=== PATIENT | female | born 1950 | race Caucasian/White ===

== ENCOUNTER 2021-10-03 08:58 | Emergency (ER) | payer OTHER, SELFPAY ==
[2021-10-03 08:59] VITALS: BP 131/66; PULSE 79; RESP 16; TEMP 36.6; O2SAT 98; BMI 23.9
--- NOTE | 2021-10-03 09:13 | EX.ED.DYSGE1 ---
HPI History of Present Illness Chief Complaint: Chest Other Narrative Narrative: Patient Emory a 71-year-old female who presents to the ER with right-sided chest discomfort. She states that 1 week ago she was helping to pull her up in the recliner and when she did this she felt a pop. She states that she felt this in her right lower rib cage region. She states since that time if she goes to lift pull push or even cough or take a deep breath then she notices pain. She states there is been no rash or bruising to the area but has been persistent for a week and she is worried about broken ribs and therefore comes in for evaluation. [facility] Medical History COPD (chronic obstructive pulmonary disease) Home Medications albuterol sulfate [Proair Hfa] 2 puff INHALATION Q6H PRN PRN 10/31/13 [History Last Taken 11/07/13 04:30] cephalexin 500 mg PO Q8 10/31/13 [History Last Taken Unknown] mometasone [Asmanex 220 mcg Twisthaler] 220 mcg INHALATION BID 10/31/13 [History Last Taken 11/07/13 04:30] oxycodone-acetaminophen 1 - 2 tab PO Q4H PRN PRN #10 tab 11/07/13 [Rx Last Taken Unknown] methocarbamol 500 mg PO Q6H PRN #40 tab 10/03/21 [Rx Last Taken Unknown] Allergy/AdvReac Type Severity Reaction Status Date / Time No Known Allergies Allergy Verified 10/31/13 14:51 Social History Smoking Status: Never smoker [facility] ED Constitutional Constitutional ED: Denies chills or fever(s) ENT ENT ED: Denies sore throat Cardiovascular Cardiovascular: Reports chest pain Respiratory/Chest Respiratory/Chest: Denies cough or dyspnea Gastrointestinal Gastrointestinal: Denies abdominal pain, diarrhea, nausea or vomiting Genitourinary Genitourinary ED: Denies dysuria Musculoskeletal Musculoskeletal: Denies back pain or myalgias Integumentary Denies abscess or rash Neurologic Neurologic: Denies headache(s) Hematologic/Lymphatic Hematologic/Lymphatic: Denies easy bleeding or easy bruising EXAM Physical Exam Const Vital Signs: 10/03/21 08:59 10/03/21 09:10 Temperature 97.9 F Temperature Source Temporal Pulse Rate 79 Respiratory Rate 16 Respiratory Effort Normal Non-Labored Respiratory Pattern Normal Blood Pressure 131/66 H Blood Pressure Mean 87 Pulse Ox 98 Oxygen Delivery Method Room Air Positive well nourished and well developed General Appearance ED: well developed Eyes PERRL and EOMs intact bilaterally Neck supple Chest Wall Chest Narrative: There is pain with palpation to the right anterior chest wall rib regions 8-10 without bony deformity or crepitance noted. Resp normal respiratory effort and clear to auscultation bilaterally Cardio regular rate and regular rhythm Rate: other Other Details: Radial pulses are plus 2 out of 4 bilaterally are equal and some GI normal to inspection, nondistended, normoactive bowel sounds, non-tender, non-distended and no masses GI Narrative: No voluntary guarding or rigidity no pulsatile mass Auscultation: normoactive bowel sounds Palpation: soft Extremity normal to inspection Extremity Narrative: No asymmetric edema no pitting edema negative Homans' sign bilaterally Neuro oriented x3 and CN's II-XII intact bilaterally Sensorium / Orientation: alert Motor Exam: strength 5/5 throughout Psych mental status grossly normal Skin no rashes or lesions noted MDM MDM MDM Narrative Medical decision making narrative: Patient presented to the ER with chest wall pain that occurred after a lifting motion. It was very reproducible on exam and patient did not have any soft tissue skin changes to suggest infection. With the pop there was concern for fractured ribs so an x-ray was obtained. X-ray revealed no acute fracture or pneumothorax but did question a lung nodule. I informed patient of this nodule and we discussed obtaining a CT scan today. Patient states that she has an evaluation by her postdoctoral scientist on Sunday and will wait to hear the postdoctoral scientist opinion prior to getting the CT scan as I do not feel this questionable nodule is the cause of her symptoms. Therefore patient will be diagnosed with intercostal muscle strain and placed on muscle relaxers to help with symptoms and is otherwise safe for discharge Radiography Diagnostic Testing: Clinical Impression(s) from Imaging Studies Ribs w/Chest X-Ray 10/03/21 09:20 IMPRESSION: RIBS: Normal x-ray examination of the ribs. CHEST: Possible 1 cm nodule in the lateral midportion of the right lung. Correlation with CT scan is recommended. Electronically Signed: Saurabh Wallace MD at 9:46 EST , Service support , Discharge Plan Triage Chief Complaint: Chest Other ED Provider: Jamel Mclaughlin Dx/Rx/DC Orders Clinical Impression: Intercostal muscle strain Instructions: ED Strain Chest Wall, ED Contusion, Rib Prescriptions: New methocarbamol 500 mg tablet 500 mg PO Q6H PRN (Reason: Muscle pain/spasm) Qty: 40 RF: 0 No Action cephalexin 500 MG capsule 500 mg PO Q8 RF: 0 albuterol sulfate [ProAir HFA] 1 PUFF inhaler 2 puff inhalation Q6H PRN PRN (Reason: Asthma) RF: 0 mometasone [Asmanex Twisthaler] 220 MCG inhaler 220 mcg inhalation BID RF: 0 oxycodone-acetaminophen 1 TABLET tablet 1 - 2 tab PO Q4H PRN PRN (Reason: Eye pain) Qty: 10 RF: 0 Primary Care Provider: Nimo Knapp Referrals: Nimo Knapp PA [Primary Care Provider] - Activity Restrictions/Additional Instructions: Please talk to your postdoctoral scientist about obtaining a CT scan as an outpatient because of the questionable nodule found on today's x-ray Disposition Disposition: Home, Self Care
--- NOTE | 2021-10-03 09:20 | RAD_ITS ---
STUDY: X-RAY - UNILATERAL RIBS ( RIGHT ) WITH CHEST REASON FOR EXAM: Female, 71 years old. Pain TECHNIQUE - RIBS: 4 view(s) of the ribs. TECHNIQUE - CHEST: Single PA view of the chest. COMPARISON: None. FINDINGS - RIBS: Normal visualized ribs without a demonstrated fracture. FINDINGS - CHEST: There is hyperinflation of the lungs consistent with chronic obstructive lung disease (COPD). Possible 1 cm nodule in the lateral mid aspect of the right lung. There is no demonstrated pleural abnormality. Normal size heart. Calcified bilateral hilar lymph nodes. Normal visualized pulmonary arteries. There is atherosclerotic calcification of the aortic arch with tortuosity. Normal visualized thoracic spine. Normal visualized ribs, clavicles, and shoulders. There is no demonstrated abnormality of the visualized soft tissue structures of the upper abdomen. RAD/Ribs Uni Min 3V w/PA Chest IMPRESSION: RIBS: Normal x-ray examination of the ribs. CHEST: Possible 1 cm nodule in the lateral midportion of the right lung. Correlation with CT scan is recommended. Electronically Signed: Saurabh Wallace MD at 9:46 EST , Service support ,
== END 2021-10-03 10:34 | disposition home or self-care (01) ==
PROVIDERS: Emergency Provider Emergency Medicine
DX: S29.011A Strain of muscle and tendon of front wall of thorax, initial encounter (principal); X50.0XXA Overexertion from strenuous movement or load, initial encounter; Y93.9 Activity, unspecified; Y92.9 Unspecified place or not applicable; J44.9 Chronic obstructive pulmonary disease, unspecified
CPT/HCPCS: 71101; 99282

== ENCOUNTER 2022-02-20 07:29 | Emergency (ER) | payer OTHER, SELFPAY ==
[2022-02-20 07:30] VITALS: BP 126/78; PULSE 110; RESP 22; TEMP 35.9; O2SAT 93; BMI 24.7
[2022-02-20 07:34] VITALS: BP 126/78; PULSE 110; RESP 22; TEMP 35.9; O2SAT 93
[2022-02-20 08:06] VITALS: O2SAT 98
--- NOTE | 2022-02-20 08:06 | EKG12_ITS ---
Test Reason : SOB Blood Pressure : / mmHG Vent. Rate : 099 BPM Atrial Rate : 099 BPM P-R Int : 122 ms QRS Dur : 072 ms QT Int : 342 ms P-R-T Axes : 085 -35 064 degrees QTc Int : 438 ms Normal sinus rhythm Right atrial enlargement Left axis deviation Abnormal ECG Confirmed by VALERIA HERNANDEZ, PIPPA ([id number]), photographic editor TONY ROE ([id number]) on 02/22/2022 11:35:22 AM Referred By: KELLY Confirmed By:PIPPA SHAW MD
--- NOTE | 2022-02-20 08:07 | ED.VIS.DYS ---
HPI History of Present Illness Chief Complaint: Shortness of Breath Narrative Narrative: 8-year-old female presenting with shortness of breath. She states has been short of breath since last Sunday. She reports the highest temperature that she has had is 99 ?F. She was seen by her primary care provider who put her on azithromycin and prednisone. She felt as if she was getting better and is slowly feeling more weak, tired. She is having decreased p.o. intake but not vomiting. He has not had a true fever. She states he wears 2 years of oxygen at sleep normally but notes that she has been requiring oxygen while awake. She states he is dropped down to 84%. She has dyspnea with exertion. No leg swelling or edema. She denies any chest pain. No diarrhea or constipation. She states other than COPD she has no significant medical history. [facility] Medical History COPD (chronic obstructive pulmonary disease) Home Medications albuterol sulfate [Proair Hfa] 2 puff INHALATION Q6H PRN PRN 10/31/13 [History Last Taken 11/07/13 04:30] cephalexin 500 mg PO Q8 10/31/13 [History Last Taken Unknown] mometasone [Asmanex 220 mcg Twisthaler] 220 mcg INHALATION BID 10/31/13 [History Last Taken 11/07/13 04:30] oxycodone-acetaminophen 1 - 2 tab PO Q4H PRN PRN #10 tab 11/07/13 [Rx Last Taken Unknown] methocarbamol 500 mg PO Q6H PRN #40 tab 10/03/21 [Rx Last Taken Unknown] Allergy/AdvReac Type Severity Reaction Status Date / Time No Known Allergies Allergy Verified 02/20/22 07:29 Social History Smoking Status: Never smoker [facility] ED Constitutional Constitutional ED: Denies chills or sweats Eyes Eyes: Denies blurry vision or change in vision ENT ENT ED: Denies rhinorrhea or sore throat Cardiovascular Cardiovascular: Denies chest pain or palpitations Respiratory/Chest Respiratory/Chest: Reports dyspnea and dyspnea on exertion Gastrointestinal Gastrointestinal: Denies abdominal pain, diarrhea, nausea or vomiting Genitourinary Genitourinary ED: Denies dysuria Musculoskeletal Musculoskeletal: Denies arthralgias, back pain, myalgias or neck pain Integumentary Denies rash Neurologic Neurologic: Denies headache(s), paresthesias or weakness Psychiatric Psychiatric: Denies anxiety or depression EXAM Physical Exam Const Vital Signs: 02/20/22 07:30 02/20/22 07:34 02/20/22 08:06 Temperature 96.7 F L 96.7 F L Temperature Source Temporal Temporal Pulse Rate 110 H 110 H Respiratory Rate 22 H 22 H Respiratory Effort Normal Respiratory Pattern Normal Blood Pressure 126/78 H 126/78 H Blood Pressure Mean 94 94 Pulse Ox 93 93 Oxygen Delivery Method Nasal Cannula Nasal Cannula Nasal Cannula Oxygen Flow Rate (L/min) 2 2 02/20/22 09:06 02/20/22 13:49 02/20/22 14:29 Temperature Temperature Source Pulse Rate 85 Respiratory Rate 18 Respiratory Effort Respiratory Pattern Blood Pressure 101/56 L 121/56 H Blood Pressure Mean 71 77 Pulse Ox 98 97 95 Oxygen Delivery Method Nasal Cannula Nasal Cannula Room Air Oxygen Flow Rate (L/min) 2 Positive well nourished General Appearance ED: NAD HEENT Reports moist mucous membranes atraumatic Eyes PERRL and EOMs intact bilaterally Neck no lymphadenopathy and supple Resp normal respiratory effort and clear to auscultation bilaterally Cardio regular rhythm Rate: tachycardic GI non-tender Palpation: soft Back/Spine normal to inspection Neuro oriented x3 and CN's II-XII intact bilaterally Sensorium / Orientation: alert Motor Exam: strength 5/5 throughout Psych mental status grossly normal Skin Lesions: no lesions Rashes: no rashes MDM MDM MDM Narrative Medical decision making narrative: Patient evaluated for more dyspnea than usual. She states she was on a Z-Khanh initially improved but still feels short of breath. Although she is stating she requires more oxygen she has been monitored here for hours and her pulse ox is 97% on her baseline O2. Given her complaint I did do a septic work-up. Her lactic acid is normal. Coagulation studies are normal. She has a slightly elevated white blood cell count at 12.8. She has never had an actual documented fever. Urinalysis is negative for infection. Her chest x-ray on my interpretation showed right lower lobe opacities. COVID-19 testing negative. I did obtain a D-dimer and this was elevated at greater than 1 so I did follow with a CTA. She has noted to have 2 pulmonary nodules and one pleural-based nodule on exam with some patchy possible infiltrate locally in the right lower lobe. She states that she knows she has had 1 nodule. She followed with a wallpaper inspector and shipper who was going to monitor this over time. She had a chest x-ray and this was found incidentally because she hurt her ribs. It is unclear whether the CTA just found more nodules or if these are new nodules, but she does state that she can follow-up with her wallpaper inspector and shipper outpatient. I think since she is on her baseline oxygen and her septic work-up is ultimately negative I think she can be discharged home. I do not believe she needs another course of antibiotics. Her vital signs are stable and she is afebrile. She is well-appearing. Patient will be discharged and she is given return precautions for any new or worsening symptoms. Impression: 1. Pulmonary nodules 2. Dyspnea 3. Generalized weakness Lab Data Labs: Laboratory Results - last 24 hr 02/20/22 02/20/22 02/20/22 08:06 08:50 09:13 WBC RBC Hgb Hct MCV MCH MCHC RDW Std Deviation RDW Coeff of Jenifer Plt Count MPV Immature Gran % (Auto) Neut % (Auto) Lymph % (Auto) Greer % (Auto) Eos % (Auto) Baso % (Auto) Absolute Neuts (auto) Absolute Lymphs (auto) Nucleated RBC % PT 13.1 INR 1.1 APTT 32.5 D-Dimer Quant (PE/DVT) 1.02 H* Sodium Potassium Chloride Carbon Dioxide Anion Gap BUN Creatinine Estim Creat Clear Calc Est GFR (MDRD) Af Amer Est GFR (MDRD) Non-Af BUN/Creatinine Ratio Glucose Lactic Acid 0.7 Calcium Total Bilirubin AST ALT Alkaline Phosphatase B-Natriuretic Peptide Total Protein Albumin Globulin Albumin/Globulin Ratio Urine Color Straw Urine Clarity Clear Urine pH 7.0 Ur Specific Spickard 1.010 Urine Protein Negative Urine Glucose (UA) Normal Urine Ketones Negative Urine Occult Blood Negative Urine Nitrite Negative Urine Bilirubin Negative Urine Urobilinogen Normal Ur Leukocyte Esterase Negative Urine RBC 0 SEEN Urine WBC 0 SEEN Ur Squamous Epith Cells 0 SEEN Urine Bacteria 0 SEEN Urine Mucus 0 SEEN COVID-19 (KAJAL) 02/20/22 02/20/22 02/20/22 09:13 09:13 09:13 WBC 12.8 H RBC 5.33 Hgb 16.0 H Hct 47.6 H MCV 89.3 MCH 30.0 MCHC 33.6 RDW Std Deviation 42.2 RDW Coeff of Jenfier 12.9 Plt Count 269 MPV 11.0 Immature Gran % (Auto) 0.900 Neut % (Auto) 74.4 H Lymph % (Auto) 12.7 L Greer % (Auto) 10.6 H Eos % (Auto) 0.9 Baso % (Auto) 0.5 Absolute Neuts (auto) 9.6 H Absolute Lymphs (auto) 1.63 Nucleated RBC % 0 PT INR APTT D-Dimer Quant (PE/DVT) Sodium 136 Potassium 3.9 Chloride 101 Carbon Dioxide 29.0 Anion Gap 6 BUN 13 Creatinine 0.86 Estim Creat Clear Calc 50.35 Est GFR (MDRD) Af Amer 83 Est GFR (MDRD) Non-Af 69 BUN/Creatinine Ratio 15.0 Glucose 95 Lactic Acid Calcium 9.5 Total Bilirubin 1.00 AST 15 ALT 24 Alkaline Phosphatase 68 B-Natriuretic Peptide 14.4 Total Protein 7.5 Albumin 3.6 Globulin 3.9 Albumin/Globulin Ratio 0.9 Urine Color Urine Clarity Urine pH Ur Specific Spickard Urine Protein Urine Glucose (UA) Urine Ketones Urine Occult Blood Urine Nitrite Urine Bilirubin Urine Urobilinogen Ur Leukocyte Esterase Urine RBC Urine WBC Ur Squamous Epith Cells Urine Bacteria Urine Mucus COVID-19 (KAJAL) 02/20/22 09:25 WBC RBC Hgb Hct MCV MCH MCHC RDW Std Deviation RDW Coeff of Jenifer Plt Count MPV Immature Gran % (Auto) Neut % (Auto) Lymph % (Auto) Greer % (Auto) Eos % (Auto) Baso % (Auto) Absolute Neuts (auto) Absolute Lymphs (auto) Nucleated RBC % PT INR APTT D-Dimer Quant (PE/DVT) Sodium Potassium Chloride Carbon Dioxide Anion Gap BUN Creatinine Estim Creat Clear Calc Est GFR (MDRD) Af Amer Est GFR (MDRD) Non-Af BUN/Creatinine Ratio Glucose Lactic Acid Calcium Total Bilirubin AST ALT Alkaline Phosphatase B-Natriuretic Peptide Total Protein Albumin Globulin Albumin/Globulin Ratio Urine Color Urine Clarity Urine pH Ur Specific Spickard Urine Protein Urine Glucose (UA) Urine Ketones Urine Occult Blood Urine Nitrite Urine Bilirubin Urine Urobilinogen Ur Leukocyte Esterase Urine RBC Urine WBC Ur Squamous Epith Cells Urine Bacteria Urine Mucus COVID-19 (KAJAL) Negative Radiography Diagnostic Testing: Clinical Impression(s) from Imaging Studies Chest CTA 02/20/22 10:12 IMPRESSION: 2.7 cm x 0.8 cm irregular nodular density in the anterior aspect of the right lower lobe. This also is of a 6.5 mm x 6.5 mm nodule in the lateral posterior aspect of the right lower lobe. Noncalcified 5.5 mm pleural-based nodule in the superior segment of the right lower lobe. Hyperinflation. Patchy alveolar infiltrates in the right lower lobe. Radiographic follow-up is recommended. No evidence of pulmonary embolism. Electronically Signed: Saurabh Wallace MD at 11:20 EDT , Chest X-Ray 02/20/22 10:25 IMPRESSION: Mild opacities in the right mid and lower lung, concerning for pneumonia. at 1104 Reported and signed by: Carmel Aguirre MD Electronically Signed: Carmel Aguirre MD at 11:03 EDT , Discharge Plan Triage Chief Complaint: Shortness of Breath ED Provider: Aleksey Arnett Dx/Rx/DC Orders Instructions: ED Pulmonary Nodule, Solitary Prescriptions: No Action cephalexin 500 MG capsule 500 mg PO Q8 RF: 0 albuterol sulfate [ProAir HFA] 1 PUFF inhaler 2 puff inhalation Q6H PRN PRN (Reason: Asthma) RF: 0 mometasone [Asmanex Twisthaler] 220 MCG inhaler 220 mcg inhalation BID RF: 0 oxycodone-acetaminophen 1 TABLET tablet 1 - 2 tab PO Q4H PRN PRN (Reason: Eye pain) Qty: 10 RF: 0 methocarbamol 500 mg tablet 500 mg PO Q6H PRN (Reason: Muscle pain/spasm) Qty: 40 RF: 0 Primary Care Provider: Nimo Knapp: Nimo Knapp PA [Primary Care Provider] - Disposition Disposition: Home, Self Care
[2022-02-20 08:58] LABS: Bacteria 0 SEEN /hpf (None Seen); Mucous, Urine 0 SEEN /hpf (<or=2+); Red Blood Cells-Urine 0 SEEN /hpf (0-5); Squamous Epithelial Cells - UA 0 SEEN /hpf (5-10); White Blood Cells 0 SEEN /hpf (0-5)
[2022-02-20 09:04] LABS: Color, Urine Straw (Yellow); Glucose, Dipstick Normal (Normal); Ketone-Dipstick Negative (Negative); Leukocyte Esterase-Dipstick Negative /ul (Negative); Nitrite-Dipstick Negative (Negative); Occult Blood-Urine Negative /ul (Negative); Protein-Dipstick Negative (Negative); Urine Bilirubin Dipstick Negative (Negative); Urine Clarity Clear (Clear); Urine Urobilinogen Normal (Normal)
[2022-02-20 09:06] VITALS: O2SAT 98
[2022-02-20 09:40] LABS: Absolute Lymphocyte Count 1.63 X10^3/uL (0.83-4.51); Absolute Neutrophil Count 9.6 X10^3/uL (2.0-7.7); Basophil# 0.06 X10^3/uL; Basophil% 0.5 % (0-1); Eosinophil# 0.11 X10^3/uL; Eosinophils% 0.9 % (0-5); Hematocrit 47.6 % (37-47); Lymphocyte # 1.63 X10^3/ul (0.83-4.51); Lymphocyte % 12.7 % (19-41); Mean Corp Hgb Conc 33.6 g/dL (32-36); Mean Corpuscular Volume 89.3 fL (81-99); Monocyte# 1.36 X10^3/uL; Monocyte% 10.6 % (0-10); NRBC Flagged by Analyzer 0 % (0-5); Neutrophil # 9.55 X10^3/uL (2.7-7.7); Neutrophil % 74.4 % (47-70); Platelet Count 269 K/mm3 (150-450); RBC Distribution Width CV 12.9 % (11.6-14.6); RBC Distribution Width SD 42.2 fl (35.1-43.9); Red Blood Count 5.33 M/mm3 (4.2-5.4); White Blood Count 12.8 K/mm3 (4.4-11.0)
[2022-02-20 09:57] LABS: BNP,B-Type NATRIURETIC PEPTIDE 14.4 pg/mL (0-100)
[2022-02-20 10:00] LABS: International Normalized Ratio 1.1; Partial Thromboplast Time 32.5 Seconds (24.1-36.2); Prothrombin Time (Protime)PT. 13.1 SECONDS (11.7-14.9)
[2022-02-20 10:01] LABS: ALB/GLOB Ratio 0.9 RATIO (0.9-2.4); AST(SGOT) 15 U/L (15-37); Alanine Aminotransfer ALT/SGPT 24 U/L (13-56); Albumin, Serum 3.6 g/dL (3.2-5.0); Alkaline Phosphatase 68 U/L (45-117); Anion Gap 6 (5-15); BUN 13 mg/dL (7-18); Calcium,Total 9.5 mg/dL (8.5-10.1); Chloride 101 mmol/L (98-107); Creatinine, Serum 0.86 mg/dL (0.55-1.02); EST Glomerular Filtration Rate 69 mL/min (>60); Est Glom Filt Rate - Afr Amer 83 mL/min (>60); Estimated Creatinine Clearance 50.35 ml/min; Globulin 3.9 g/dL (2.2-4.2); Glucose 95 mg/dL (74-106); Potassium 3.9 mmol/L (3.5-5.1); Protein, Total 7.5 g/dL (6.4-8.2); Sodium Level 136 mmol/L (136-145)
[2022-02-20 10:03] LABS: D-Dimer Quantitative (DVT/PE) 1.02 FEU/ug/m (0.27-0.49)
--- NOTE | 2022-02-20 10:12 | CT_ITS ---
STUDY: CTA CHEST REASON FOR EXAM: Female, 71 years old. Hypoxia RADIATION DOSAGE (If Supplied By Facility): CTDIvol = ( 7.01 ) mGy, DLP = ( 173.15 ) mGycm TECHNIQUE: The examination was performed with the intravenous administration of IV 100mL Isovue-370. Post-processing of the angiographic images was performed, with multiplanar reformation and 3D reconstruction. Individualized dose optimization techniques were used for this CT. COMPARISON: Comparison is made with prior chest radiograph done earlier in the day. FINDINGS: Normal enhancement of the main pulmonary artery and right and left pulmonary arteries. Normal enhancement of the bilateral peripheral pulmonary arteries. There is no demonstrated pulmonary embolism. Normal thoracic aorta and visualized great vessels. There is no demonstrated aortic dissection. Normal heart and pericardium. Normal mediastinum. Normal hilar regions. Normal visualized trachea and bronchi. Hyperinflation. There is a 2.7cm x 0.8 cm irregular linear/nodular density in the anterior aspect of the right lower lobe. A neoplastic process should be ruled out. There is also evidence of a 6.5 mm x 6.5 mm nodular density in the lateral posterior aspect of the right lower lobe as seen on axial image #125. There is a 5.5 mm pleural-based nodule in the superior segment of the right lower lobe as seen on axial image #168. Mild degree of the bronchiectasis and patchy alveolar infiltrates are seen in the right lower lobe along the posterior medial segment. Normal pleura. Normal chest wall structures. There are degenerative changes of thoracic spine. Normal visualized upper abdomen. CT/CTA Chest W/WO Contrast IMPRESSION: 2.7 cm x 0.8 cm irregular nodular density in the anterior aspect of the right lower lobe. This also is of a 6.5 mm x 6.5 mm nodule in the lateral posterior aspect of the right lower lobe. Noncalcified 5.5 mm pleural-based nodule in the superior segment of the right lower lobe. Hyperinflation. Patchy alveolar infiltrates in the right lower lobe. Radiographic follow-up is recommended. No evidence of pulmonary embolism. Electronically Signed: Saurabh Wallace MD at 11:20 EDT ,
--- NOTE | 2022-02-20 10:25 | RAD_ITS ---
HISTORY: cough. TECHNIQUE: XR Chest 1 View. # of images incl. paperwork: 1. COMPARISON: 10/03/2021. FINDINGS: CARDIOMEDIASTINAL STRUCTURES: Cardiac silhouette not enlarged. Mediastinal contour unremarkable with calcification of the aorta. LUNGS: Hyperinflated, suggesting COPD. Mild opacities in the right mid and lower lung. PLEURA: No pleural effusion or pneumothorax. OSSEOUS STRUCTURES: Osteopenia noted. RAD/Chest 1 View (Portable) IMPRESSION: Mild opacities in the right mid and lower lung, concerning for pneumonia. at 1104 Reported and signed by: Carmel Aguirre MD Electronically Signed: Carmel Aguirre MD at 11:03 EDT ,
[2022-02-20 12:58] LABS: Lactic Acid 0.7 mmol/L (0.4-1.9)
[2022-02-20 13:49] VITALS: BP 101/56; O2SAT 97
[2022-02-20 14:29] VITALS: BP 121/56; PULSE 85; RESP 18; O2SAT 95
--- NOTE | 2022-02-22 14:05 | CM.ED ---
ER RNCM DC F/u Call: Seen in ER 02/20/22 for SOB. H/o COPD, on home O2 at night but having to use during the day recently with this illness. PCP placed on Zithromax and Prednisone. Patient to f/u with Database Programmer Analyst. Called patient's listed number on demographics and answered by patient. This securities underwriter introduced self and role. Patient states has been doing the same, still has fevers. Wearing O2 during the day. Course of Zithromax is finished. F/u with PCP today and gave her another course of Prednisone. States will call for f/u with her avionics systems engineer now. No further issues or concerns voiced to this securities underwriter and educated to return for any worsening of symptoms. PENELOPE Hager
== END 2022-02-20 14:42 | disposition home or self-care (01) ==
PROVIDERS: Emergency Provider Student in an Organized Health Care Education/Training Program; Visit Provider Student in an Organized Health Care Education/Training Program
DX: R06.00 Dyspnea, unspecified (principal); J44.9 Chronic obstructive pulmonary disease, unspecified; R91.8 Other nonspecific abnormal finding of lung field; R53.1 Weakness
CPT/HCPCS: 36415; 71045; 71275; 80053; 81001; 83605; 83880; 85025; 85379; 85610; 85730; 87040; 87086; 87635; 93005; 99284; J7030; Q9967; A4216; U0003; U0005

== ENCOUNTER 2025-07-25 09:13 | Inpatient (IN) | payer OTHER, SELFPAY ==
[2025-07-25] VITALS (12 sets, daily range): BP systolic 102–118; BP diastolic 60–69; PULSE 75–125; RESP 16–28; TEMP 36.6–37.1; O2SAT 74–100; BMI 17.4; BMI 17.5
--- NOTE | 2025-07-25 09:39 | EDS_ITS ---
HPI History of Present Illness Chief Complaint: Shortness of Breath Narrative Narrative: Patient is a 74-year-old female presenting to the emergency department for shortness of breath for the past few days. Patient has past medical history of COPD. She states that over the past few days her shortness of breath has worsened. She reports mainly worsening shortness of breath with activity. She denies any chest pain. She denies any fever or chills. She reportedly followed up with her primary care doctor yesterday and they did a CT that showed infection. She was started on antibiotic however she did not go to the pharmacy to pick it up. It was encouraged that she go to the emergency department after being seen at the primary care doctor's office however she did not go. She is here today for continued shortness of breath. She is using her breathing treatments use this morning. She wears oxygen as needed, usually wears it at night about 2 L. Denies any lower extremity edema. Denies any history of PE or DVT. Denies any recent travel, hospitalizations or surgeries. [facility] Medical History COPD (chronic obstructive pulmonary disease) Home Medications ?Medication ?Instructions ?Recorded ?Last Taken ?Type albuterol sulfate 90 mcg/actuation 1 inh inhalation 4X /DAY PRN PRN 07/25/25 Unknown History breath activated powder inhaler shortness of breath (ProAir RespiClick) fluticasone furoate 200 1 inh inhalation DAILY 07/2507/25/25 History mcg-vilanterol 25 mcg/dose inhalation powder (Breo Ellipta) Allergy/AdvReac Type Severity Reaction Status Date / Time No Known Allergies Allergy Verified 07/25/25 09:15 Social History Smoking Status: Never smoker ROS ROS ED ROS Narrative see HPI EXAM Physical Exam Narrative Exam Narrative: Vital signs: Reviewed General: Alert and oriented x 3. No acute distress HEENT: Head is normocephalic and atraumatic, sinuses nontender, pupils equal round and reactive. Nares are patent. Oropharynx and throat exams normal. Neck: Supple without lymphadenopathy nontender Cardiovascular: Tachycardic rate and regular rhythm, no murmurs. No rubs or gallops. Normal S1 and S2 Respiratory: Diminished lung sounds throughout. No wheezes, rales, rhonchi. On 4 L NC. Abdominal: Soft and nontender. Normal bowel sounds. No guarding or rebound. Nonsurgical abdomen Extremities: No lower extremity edema. No tenderness. No bruising. Normal range of motion. Normal sensation. Skin: No rash or redness. Neurological: Cranial nerves II through XII are grossly intact. Normal strength and sensation. Normal cerebellar function The rest of the physical exam is unremarkable Const Vital Signs: 07/25/25 09:14 07/25/25 09:29 07/25/25 09:40 Temperature 97.9 F Temperature Source Temporal Pulse Rate 125 H Respiratory Rate 22 H Respiratory Effort Short of Breath Respiratory Depth Normal Respiratory Pattern Normal Blood Pressure 110/69 Blood Pressure Mean 82 Pulse Ox 87 96 Oxygen Delivery Method Nasal Cannula Room Air Nasal Cannula Oxygen Flow Rate (L/min) 3 4 07/25/25 09:51 07/25/25 10:15 07/25/25 12:00 Temperature 98.7 F Temperature Source Oral Pulse Rate 103 H 111 H 96 Respiratory Rate 20 H 18 23 H Respiratory Effort Respiratory Depth Respiratory Pattern Normal Blood Pressure 118/64 102/61 Blood Pressure Mean 82 74 Pulse Ox 100 91 Oxygen Delivery Method Nasal Cannula Room Air Oxygen Flow Rate (L/min) 3 07/25/25 12:59 07/25/25 13:00 Temperature Temperature Source Pulse Rate 94 Respiratory Rate 28 H Respiratory Effort Respiratory Depth Respiratory Pattern Blood Pressure 109/62 Blood Pressure Mean 77 Pulse Ox 89 97 Oxygen Delivery Method Room Air Nasal Cannula Oxygen Flow Rate (L/min) 2 MDM MDM MDM Narrative Medical decision making narrative: Patient is a 74-year-old female presenting to the emergency department for dyspnea. Patient was seen and examined. She arrives tachycardic at 125. Tachypneic at 22. Stable BP at 110/69. Saturating in the 70s on room air, placed on 4 L nasal cannula now saturating 99%. She is afebrile. Differential includes but is not limited to: COPD exacerbation, pneumonia, ACS, PE, CHF, viral Was able to pull images over from the CT that was done yesterday. It was a CTA. There is no evidence of pulmonary embolism. There was evidence of an atypical pneumonia. Patient started on azithromycin here. Given 2 DuoNeb breathing treatments. She is not wheezing on exam which is why I was initially concerned about a possible PE. CBC with no leukocytosis and hemoglobin of 16.1. BMP with no significant abnormalities. Lactate within normal limits. BNP within normal limits. Troponin and reflex stable with no significant delta change. EKG shows sinus tachycardia with left axis deviation. No ischemic changes noted. No dysrhythmia. Patient was given fluids for tachycardia. She does wear oxygen as needed. She was ambulated with pulse ox without oxygen saturating 90% however her heart rate did go up to 137. When brought back to the room she did present saturating 86 to 88% on room air. Discussed admission given the ambulation test. She is agreeable. Patient admitted to Dr. Gamble for atypical pneumonia, hypoxia and tachycardia. Clinical impression Shortness of breath Atypical pneumonia Hypoxia History & Record Review Discussion w/independent historian: Patient and Family Additional record(s) reviewed:: Prior outpatient record (prior CT imaging) Lab Data Attestation: I reviewed the patient's lab results. Labs: Laboratory Results - last 24 hr 07/25/25 07/25/25 09:30 11:50 WBC 6.9 RBC 5.43 H Hgb 16.1 H Hct 49.0 H MCV 90.2 MCH 29.7 MCHC 32.9 RDW Std Deviation 43.5 RDW Coeff of Jenifer 13.1 Plt Count 284 MPV 11.4 Immature Gran % (Auto) 0.300 Neut % (Auto) 54.4 Lymph % (Auto) 27.8 Harvey % (Auto) 9.5 Eos % (Auto) 6.6 H Baso % (Auto) 1.4 H Absolute Neuts (auto) 3.8 Absolute Lymphs (auto) 1.93 Nucleated RBC % 0 Sodium 139 Potassium 4.0 Chloride 97 L Carbon Dioxide 29.1 Anion Gap 12 BUN 14 Creatinine 0.66 L Estim Creat Clear Calc 44.29 L Est GFR (MDRD) Non-Af 93 BUN/Creatinine Ratio 21.4 H Glucose 103 H Lactic Acid 1.1 Calcium 9.9 Troponin T High Sens 20 H Troponin T Hi Sens 2 Hr 17 H NT pro BNP II 38 Discharge Plan Disposition Disposition: Acute Care [facility] Discharge Date/Time: 07/25/25 13:47
--- NOTE | 2025-07-25 09:41 | EKG12_ITS ---
Test Reason : SOB Blood Pressure : */* mmHG Vent. Rate : 116 BPM Atrial Rate : 116 BPM P-R Int : 142 ms QRS Dur : 66 ms QT Int : 316 ms P-R-T Axes : 86 -50 69 degrees QTcB Int : 439 ms Sinus tachycardia Right atrial enlargement Left axis deviation Pulmonary disease pattern Cannot rule out Septal infarct , age undetermined Abnormal ECG Present Confirmed by Joe Hickey ([id number]), newspaper editor LUKAS HATHAWAY ([id number]) on 07/28/2025 5:47:20 AM Referred By: Confirmed By: Joe Hickey
--- OUTSIDE RECORDS SUMMARY | 2025-07-25 09:58 | XMS RPT_ITS | CCD ---
Author Organization [facility] Care Team Providers Care Business Proposal Rep Name Role Phone Veronica SULLIVAN, Ivette J Unavailable [phone] Veronica SULLIVAN, Ivette J Unavailable [phone] Ness HERNANDEZ, Emma Minaya Unavailable Leandro HERNANDEZ, Terrell Coelho Unavailable Brandon HERNANDEZ, Miky Tovar Unavailable Lizandro SULLIVAN, Ivy Hayes Unavailable [phone] Nitish BARRIOSN, Yary Unavailable Unavailable Chanel MILLED RUBBER TENDER, Hailey Unavailable Unavailable Kimani TRIPLETT, Yesica Stack Unavailable Unavailable Anibal MILLED RUBBER TENDER, Char Unavailable Unavailable Geovany SULLIVAN, Linda J Unavailable [phone] Freedom MILLED RUBBER TENDER, Emma Ndiaye Unavailable Unavailab le [place] MILLED RUBBER TENDER, Ariella Duron Unavailable Unavailab le Vess MILLED RUBBER TENDER, Orlando L Unavailable Unavailable Kyle MILLED RUBBER TENDER, Leela Unavailable Unavailabl rei Campos MILLED RUBBER TENDER, Ada Chairez Unavailable Unavaila ble Unavailable Unavailable Last MILLED RUBBER TENDER, Isamar Unavailable Unavailabl e MARTIN, IVETTE PAC Consulting Unavailable MARTIN, IVETTE PAC Referring Unavailable LAURIE ARNETT JR Admitting Unavailable LAURIE ARNETT JR Primary Care Unavailable LAURIE ARNETT JR Attending Unavailable PROVIDER, UNKNOWN Consulting Unavailable ARMENTA, LINDA J Attending Unavailable MARTIN, IVETTE PAC Consulting Unavailable ARMENTA, LINDA J Admitting Unavailable ARMENTA, LINDA J Primary Care Unavailable PROVIDER, UNKNOWN Consulting Unavailable MARTIN, IVETTE PAC Consulting Unavailable ARMENTA, LINDA J Admitting Unavailable ARMENTA, LINDA J Primary Care Unavailable ARMENTA, LINDA J Attending Unavailable PROVIDER, UNKNOWN Consulting Unavailable Armenta PA-C, Linda J Unavailable [phone] Clint VAUGHAN, Luis Angel Unavailable Unavailable Medications Current Medications Medication Drug Class(es) Dates Sig (Normalized) Sig (Original) [id number] 200 actuat albuterol 0.09 mg/actuat metered dose inhaler (20 sources) beta2-Adrenergic Agonist ProAir RespiClick 90 mcg/actuation breath activated ; 1 inhalation QID prn (90 mcg/actuat) PROAIR HFA, 108 (90 Base)MCG/ACT (Inhalation Aerosol Solution) ; as needed (108 (90 Base) MCG/ACT) Comments: Medication taken as needed. Comment on above: Medication taken as needed. 30 actuat fluticasone furoate 0.2 mg/actuat / vilanterol 0.025 mg/actuat dry powder inhaler (12 sources) Corticosteroid, beta2-Adrenergic Agonist Breo Ellipta 20 0 mcg-25 mcg/dose powder for inhalation ; 1 inhalation once a day (200-25 mcg/dose) Completed/Discontinued Medications Medication Drug Class(es) Dates Sig (Normalized) Sig (Original) amoxicillin 875 mg / clavulanate 125 mg oral tablet (20 sources) Penicillin-class Antibacterial Start: 02-08-2024 End: 02-15-2024 amoxicillin 875 mg-potassium clavulanate 125 mg tablet ; 1 (one) tablet BID for 7 days Quantity: 14 {Tablet} Refills: 0 Ordered: 08-Feb-2024 LAURIE Armenta Start: 08-Feb-2024 End: 15-Feb-2024 Status: Inactive Start: 11-10-2014 End: 11-20-2014 take 1 tablet by mouth twice daily at mealtime AUGMENTIN, 875-125MG (Oral Tablet) ; 1 (one) Tablet twice daily for 10 days Quantity: 20 {Tablet} Refills: 0 Ordered: 10-Nov-2014 LAURIE Bone Start: 10-Nov-2014 End: 20-Nov-2014 Status: Inactive Comments: Take with food Comment on above: Take with food azithromycin 250 mg oral tablet (20 sources) Macrolide Antimicrobial Start: 10-19-2021 End: 02-22-2022 Zithromax Z-Alex 250 MG Oral Tablet ; 2 (two) Tabs day one, then one daily for 4 days for 0 days Quantity: 1 {Packet} Refills: 0 Ordered: 22-Feb-2022 Start: 14-Feb-2022 End: 22-Feb-2022 Status: Inactive Start: 05-28-2015 End: 05-31-2015 take 1 tablet by mouth once daily AZITHROMYCIN, 500MG (Oral Tablet) ; 1 (one) Tablet daily for 3 days Quantity: 3 {Tablet} Refills: 0 Ordered: 28-May-2015 MD Miky Taylor Start: 28-May-2015 End: 31-May-2015 Status: Inactive benzonatate 100 mg oral capsule (12 sources) Non-narcotic Antitussive Start: 01-03-2019 End: 09-29-2021 take 1 capsule by mouth three times daily as needed for cough Tessalon Perles 100 MG Oral Capsule ; 1 (one) Capsule tid prn cough for 0 days Quantity: 30 {Capsule} Refills: 0 Ordered: 29-Sep-2021 CLEMENT Buchanan Start: 03-Jan-2019 End: 29-Sep-2021 Status: Inactive cephalexin 500 mg oral capsule (12 sources) Cephalosporin Antibacterial Start: 01-03-2019 End: 01-13-2019 take 2 capsules by mouth twice daily Cephalexin 500 MG Oral Capsule ; 2 (two) Capsule bid for 10 days Quantity: 40 {Capsule} Refills: 0 Ordered: 03-Jan-2019 MD Terrell Reeves Start: 03-Jan-2019 End: 13-Jan-2019 Status: Inactive hydrocortisone 25 mg/ml topical cream (12 sources) Corticosteroid Start: 09-29-2021 End: 02-22-2022 Proctozone-HC 2.5 % External Cream ; 1 (one) Application two times daily for 0 days Quantity: 30 {Gram} Refills: 1 Ordered: 22-Feb-2022 Start: 29-Sep-2021 End: 22-Feb-2022 Status: Inactive methylPREDNISolone 4 mg oral tablet (12 sources) Corticosteroid Start: 01-09-2014 End: 02-26-2014 MEDROL (ALEX), 4MG (Oral Tablet) ; 1 (one) Tablet Tablet as directed for 0 days Quantity: 1 {Dose_Pack} Refills: 0 Ordered: 26-Feb-2014 UZIEL Harman Start: 09-Jan-2014 End: 26-Feb-2014 Status: Inactive 120 actuat mometasone furoate 0.22 mg/actuat dry powder inhaler (12 sources) Corticosteroid take 2 puff(s) by inhalation once daily in the morning ASMANEX 120 METERED DOSES, 220MCG/INH (Inhalation Aerosol Powder Breath Activated) ; 2 puffs every morning (220 MCG/INH) Status: Inactive predniSONE 20 mg oral tablet (20 sources) Start: 02-08-2024 End: 02-13-2024 predniSONE 20 mg tablet ; 2 (two) Tablet daily for 5 days Quantity: 10 {Tablet} Refills: 0 Ordered: 08-Feb-2024 LAURIE Armenta Start: 08-Feb-2024 End: 13-Feb-2024 Status: Inactive Start: 02-22-2022 End: 02-08-2024 predniSONE 20 mg tablet ; 1 (one) Tablet as directed for 0 days Quantity: 20 {Tablet} Refills: 0 Ordered: 08-Feb-2024 Start: 22-Feb-2022 End: 08-Feb-2024 Status: Inactive Comments: Take 3tabs qd for 3 days thenTake 2tabs qd for 3 days thenTake 1tab qd for 3 days thenTake 1/2tab qd for 4 days. Start: 02-14-2022 End: 02-19-2022 take 1 tablet by mouth twice daily predniSONE 10 MG Oral Tablet ; 1 Tab two times daily for 5 days Quantity: 10 {Tablet} Refills: 0 Ordered: 14-Feb-2022 LAURIE Martin Start: 14-Feb-2022 End: 19-Feb-2022 Status: Inactive Comment on above: Take 3tabs qd for 3 days thenTake 2tabs qd for 3 days thenTake 1tab qd for 3 days thenTake 1/2tab qd for 4 days. sulfamethoxazole 800 mg / trimethoprim 160 mg oral tablet (12 sources) Dihydrofolate Reductase Inhibitor Antibacterial, Sulfonamide Antimicrobial Start: 08-21-20 End: 08-26-20 take 1 tablet by mouth twice daily Bactrim DS 800-160 MG Oral Tablet ; 1 Tab two times daily for 5 days Quantity: 10 {Tablet} Refills: 0 Ordered: 21-Aug-2020 CLEMENT Loja Start: 21-Aug-2020 End: 26-Aug-2020 Status: Inactive Problems Active Problems Problem Classification Problem Date Documented Da te Episodic/Chronic Acute bronchitis (20 sources) Acute bronchitis 05-28-2015 Episodic Asthma (20 sources) Asthma; Translations: [Unspecified asthma, uncomplicated] 02-22-2022 Chronic Cardiac dysrhythmias (20 sources) Tachycardia; Translations: [Tachycardia, unspecified] 11-10-2014 Episodic Chronic obstructive pulmonary disease and bronchiectasis (20 sources) Moderate chronic obstructive pulmonary disease; Translations: [Chronic obstructive pulmonary disease, unspecified] Onset: 02-08-2024 02-08-2024 Chronic Chronic obstructive pulmonary disease and bronchiectasis (20 sources) Bronchitis; Translations: [Bronchitis, not specified as acute or chronic] 02-22-2022 Episodic Fever of unknown origin (20 sources) Fever; Translations: [Fever, unspecified] 02-22-2022 Episodic Hemorrhoids (20 sources) External hemorrhoids; Translations: [Residual hemorrhoidal skin tags] 02-22-2022 Episodic Immunizations and screening for infectious disease (20 sources) Requires vaccination; Translations: [Encounter for immunization] 07-30-2015 Episodic Malaise and fatigue (20 sources) Fatigue; Translations: [Other fatigue] 11-10-2014 Episodic Other connective tissue disease (20 sources) Pain in left foot; Translations: [Pain in left foot] 02-22-2022 Episodic Other lower respiratory disease (4 sources) Cough; Translations: [Cough] 02-08-2024 Episodic Other lower respiratory disease (20 sources) Nodule of lung; Translations: [Solitary pulmonary nodule] 02-22-2022 Episodic Other non-traumatic joint disorders (20 sources) Pain in left knee; Translations: [Pain in joint, lower leg] 02-22-2022 Episodic Other screening for suspected conditions (not mental disorders or infectious disease) (20 sources) Special screening for malignant neoplasms of colon; Translations: [Screening status] 02-12-2014 Episodic Pneumonia (except that caused by tuberculosis or sexually transmitted disease) (20 sources) Pneumonia; Translations: [Pneumonia, unspecified organism] 11-10-2014 Episodic Sprains and strains (20 sources) Injury of ribs; Translations: [Sprain of ribs, initial encounter] 02-22-2022 Episodic Unclassified (12 sources) Number of Children 02-26-2014 Comment on above: 4. Unclassified (12 sources) Number of Pregnancies 02-26-2014 Comment on above: 4. Unclassified (12 sources) Vaginal deliveries 02-26-2014 Comment on above: 4. Past or Other Problems Problem Classification Problem Date Documented Da te Episodic/Chronic Unclassified (2 sources) COPD excacerbation - Patient states she started with a cough a couple weeks ago which seemed to jump start symptoms, but is now over the cough and symptoms are still lingering. Patient states she typically wears her O2 at night but has now had to wear it during the day as well. Sometimes 11/06. O2 will drop, HR will rise on exertion. HR has reached 130s, O2 has dropped to high 70s. Patient states she feels weak, lethargic and unlike herself these past few weeks. States she is more tired, and most activities are harder now. Usually HR is in the 90s but with activity it will go higher and then comes down again when sits.No known cardiac issues. Did go to the ER when she was in [place] - they checked her heart and looked for blood clots and all was help. 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 02-08-2024 Unclassified (9 sources) Follow up consultation - The patient is here to follow-up after Emergency Room/Urgent Care ([facility]) on : (02/20/22). Current symptoms include dyspnea, weakness and fever. Note for Consultation follow-up: Just started using O2 over the weekend. States fevers are mainly during the night. She has not checked her temperature at night, but reports feeling feverish.Workup in the ER did not show any acute disease.Patient last saw her plant maintenance supervisor about 2 weeks ago - this was before she started feeling short of breath 02-22-2022 Unclassified (9 sources) [ADDITIONAL REASON] Transition into care - The patient is transitioning into care from an emergency room and a summary of care was reviewed. 02-22-2022 Unclassified (12 sources) Cold Symptoms - Symptoms include dry cough (At the start of cough), productive cough (Has progressed to a cough productive of thick green sputum), general malaise (very weak and tired, no body aches) and headache, but do not include nasal congestion, runny nose, ear pain, sore throat or fever (99.8 today). The onset was gradual 5 day(s) ago. The symptoms occur constantly. The patient describes this as moderate in severity and worsening. Current treatment includes acetaminophen (YESTERDAY NONE TODAY) and inhaler. Risk factors do not include smoking. The patient has not been exposed to an individual with a cough, an individual with an upper respiratory infection, an individual with similar symptoms, an individual with strep or secondhand smoke. Medical history includes asthma (COPD), but patient denies history of seasonal allergies, recurrent sinusitis, recurrent strep pharyngitis, tonsillectomy or recurrent ear infections. Note for Upper respiratory infection: SOB when she walks too much 02-14-2022 Unclassified (12 sources) Cold Symptoms - Symptoms include nasal congestion, runny nose, ear fullness, sore throat and productive cough, but do not include sneezing, ear pain, dry cough, wheezing, fever, chills, general malaise, headache (head feels off but doesn't have a headache.) or facial pain. The onset was sudden 4 day(s) ago. The symptoms occur frequently. The patient describes this as moderate in severity and unchanged. Current treatment includes NSAIDs (advil) and home remedies. Risk factors do not include child in daycare or smoking. The patient has not been exposed to an individual with a cough, an individual with an upper respiratory infection, an individual with similar symptoms, an individual with strep or secondhand smoke. Patient denies history of seasonal allergies, recurrent sinusitis, recurrent strep pharyngitis, asthma (Does have history of COPD.), tonsillectomy or recurrent ear infections. Note for Upper respiratory infection: pt recently had thr[facility] last week [facility] 10-19-2021 Unclassified (12 sources) Rectal bleeding - The onset of the rectal bleeding has been gradual and has been occurring in an intermittent (Has had hemorrhoids for years, but the past week they have started bleeding again. Usually will only bleed for a couple days at a time.) pattern for days (5). The course has been increasing. The bleeding is characterized as blood streaking of toilet paper and bloody toilet bowl water (Reports that she was passing some clots when the bleeding started). The symptoms have been associated with change in bowel habits and hard stools, while the symptoms have not been associated with abdominal pain, dizziness, easy bruising, family history of bleeding, family history of colon cancer, nausea, painful bowel movements, vomiting or weight loss. The accompanying symptoms include pain, painful bowel movements and itching. There have been no previous diagnostic tests. Note for Rectal bleeding: States she has been using stool softener/suppository. States she had to lift her off the ground last week and that is when she started having more problems with bleeding. Her has advanced cancer and she has been very stressed caring for him. 09-29-2021 Unclassified (12 sources) Foot pain - The pain is in the left foot. The onset of the foot pain was sudden and has been occurring in a persistent (the pain is worse as the day progresses) pattern for 3 days. The course has been without change. The pain is characterized as a sharp stabbing. The pain is aggravated by physical activity. The pain has been relieved by nothing (tried taking aleve, no relief). There have been no previous diagnostic tests. There have been no previous evaluations. There have been no previous surgeries. Note for Foot pain: No known injury. Pt states that she has had URI sx for the past 3 weeks, symptoms are impoving but continues to have lingering cough and some chest congestion. No wheezing or shortness of breath. No fever or chills. 01-03-2019 Unclassified (12 sources) Knee Pain - The onset of the knee pain has been acute and has been occurring in a persistent pattern for 3 days. The knee pain is moderate in the left knee. The knee pain is characterized as a sharp stabbing. The knee pain is described as being located in the entire knee. The knee pain is aggravated by kneeling. There were no relieving factors. Note for Knee pain: No injury, no new activities. 12-24-2018 Unclassified (12 sources) Cough - The onset of the cough has been sudden and has been occurring in a persistent pattern for 1 week. The course has been increasing. The cough is characterized as productive of mucoid sputum. The amount of sputum is scanty. The cough occurs all the time. The cough is aggravated by exercise. Associated symptoms include chest pain (congestion) and dyspnea, while there is no fever, nasal congestion, night sweats or runny nose. Note for Cough: Patient states that it feels like something is blocking her breathing. 05-28-2015 Unclassified (12 sources) rib pain - Patient was leaning over a pile of bricks to reach something and she could almost reach it and the bricks were pressing up against her. Then she felt a pop in her left rib area and then some pain. Is having a hard time taking deep breaths. Pain is not severe, but is uncomfortable. No bruising noted. Notes some GONSALEZ. Incident occurred this AM. No cough or wheeze. 12-04-2014 Unclassified (12 sources) Cold Symptoms - Symptoms include nasal congestion, runny nose, non-purulent sputum, ear fullness, dry cough, productive cough, fever, chills and general malaise, but do not include sneezing or wheezing. The onset was sudden 4 day(s) ago. The symptoms occur constantly. The patient describes this as moderate in severity and worsening. Current treatment includes a short-acting beta agonist. The patient has been exposed to an individual with an upper respiratory infection. Medical history includes asthma (and COPD - managed by pulmonology), but patient denies history of seasonal allergies, recurrent sinusitis, recurrent strep pharyngitis, tonsillectomy or recurrent ear infections. Note for Upper respiratory infection: h/o COPD 11-10-2014 Unclassified (12 sources) Well Adult, female - The patient feels well with no complaints (currently seeing pulmonology as her COPD has progressed). The first day of the last menstrual period was : (1997). The patient is not using any method of contraception at this time. The patient has a balanced diet and takes supplemental vitamins (nutritional drink). The patient exercises 3 - 4 times per week. The patient sleeps 6 hours per night. 02-26-2014 Unclassified (12 sources) increased heart rate - Patient states that she has asthma and so at times, she has shortness of breath and she always attributes it to that. She worked in the yard yesterday and she became short of breath, which she didn't feel was abnormal. Usually takes inhaler and gets relief; had used inhaler a couple hours prior to going out but still had sx. When used inhaler later, she did not feel it helped. Then she noticed when she went inside and went to relax that her heart rate was really elevated (she thought it was regular) and she felt fatigued. She had no chest pain. She states that after resting a while it resolved. This am she just feels very fatigued and wiped. Wants to be sure she isn't overlooking something. Had similar episode last winter when shoveling snow that resolved with aspirin and rest (was not evaluated). This episode was similar to that one, but she doesn't remember feeling as fatigued aftewards. Has noticed she has been more tired lately. Does have appt with her plant maintenance supervisor in [place] this week (Dr. Spencer). Continues Asmanex 1 puff twice per day and uses rescue inhaler several times per day as needed. 02-17-2014 Unclassified (12 sources) Cold Symptoms - Symptoms include nasal congestion, dry cough and productive cough, but do not include sore throat or headache. The onset was gradual 1 week(s) ago. The symptoms occur constantly. The patient describes this as moderate in severity and worsening (felt like she was starting to improve and then symptoms worsened yesterday). Current treatment includes NSAIDs (a couple of times). The patient has been exposed to an individual with similar symptoms. Medical history includes asthma (managed by Dr. Spencer; has been using asmanex and proair inhalers regularly; has used nebulizer twice), but patient denies history of seasonal allergies, recurrent sinusitis, recurrent strep pharyngitis, tonsillectomy or recurrent ear infections. Note for Upper respiratory infection: Feeling weak/shaky and short of breath (inhaler did help with this when she used it this morning). Some chest congestion. No wheezing noted per patient. 01-09-2014 Unclassified (12 sources) new pt consult - Pt is here for new pt consult, pt is on medication for asthma (managed by Louie) but has no other complaints. Pt had pneumovax 6 years ago (she thinks) she will look in her records and let us know when it was.Previously under the care of Dr Tian, but it had been 5 years since she was seen - they advised that she needed to be a new patient if she wanted to continue with them... 12-19-2012 Unclassified (10 sources) COPD excacerbation - Patient states she started with a cough a couple weeks ago which seemed to jump start symptoms, but is now over the cough (other than bringing up some phlegm again) and symptoms are still lingering. Patient states she typically wears her O2 at night and prn but has been wearing it more recently - sometimes 11/06. O2 will drop, HR will rise on exertion. Patient states she feels weak over the past few weeks. States she is more tired, and most activities are harder now. Usually HR is in the 90s but with activity it will go higher and then comes down again when sits.No known cardiac issues. Did go to the ER when she was in [place] (01/28/24)- they checked her heart and looked for blood clots (CT chest) and all was normal. 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 Daughter drove her back from [place] in vehicle with frequent stops.Unable to see her plant maintenance supervisor until March 12.Has not been using albuterol much but taking Breo daily. 02-08-2024 Unclassified (3 sources) Transition into care - The patient is transitioning into care from an emergency room and a summary of care was reviewed. 02-22-2022 Unclassified (3 sources) [ADDITIONAL REASON] Follow up consultation - The patient is here to follow-up after Emergency Room/Urgent Care ([facility]) on : (02/20/22). Current symptoms include dyspnea, weakness and fever. Note for Consultation follow-up: Just started using O2 over the weekend. States fevers are mainly during the night. She has not checked her temperature at night, but reports feeling feverish.Workup in the ER did not show any acute disease.Patient last saw her plant maintenance supervisor about 2 weeks ago - this was before she started feeling short of breath 02-22-2022 Unclassified (7 sources) Follow up for COPD exacerbation - Patient was in office 2 weeks ago for COPD exacerbation. Was having trouble breathing and needing her O2 more frequently. Patient states she feels much better today. Is still using oxygen more frequently, but states not as much as 2 weeks ago. Patient is getting around better. Patient has not had her oxygen on since this AM. No more coughing beyond her baseline. Has a f/u appt with her plant maintenance supervisor end of February. 02-22-2024 Results Test Name Value Interpretation Reference Range Facility CBC (INCLUDES DIFF/PLT)on Basophils (Bld) [#/Vol] 0.078 10*3/uL Normal 0-200 [facility] Comment on above: Performed By: #### 1 [id number], [id number], 7600 #### [facility] of [address], [address] [place] [address] Boilermaker Apprentice: Fabio Disla MD Basophils/100 WBC (Bld) 0.8 % Normal [facility] Comment on above: Performed By: #### 1 0231, 63, 7600 #### [facility] of [address], [address] [place] [address] Boilermaker Apprentice: Fabio Disla MD Eosinophils (Bld) [#/Vol] 0.369 10*3/uL Normal 15-500 [facility] Comment on above: Performed By: #### 1 023, 63, 7600 #### [facility] of [address], [address] [place] [address] Boilermaker Apprentice: Fabio Disla MD Eosinophils/100 WBC (Bld) 3.8 % Normal [facility] Comment on above: Performed By: #### 1 023, 63, 7600 #### [facility] of [place] [address] Boilermaker Apprentice: Fabio Disla MD Erythrocyte distribution width (RBC) [Ratio] 12.4 % Normal 11.0-15.0 [facility] Comment on above: Performed By: #### 1 023, 63, 7600 #### [facility] of [place] [place] [address] Boilermaker Apprentice: Fabio Disla MD Hematocrit (Bld) [Volume fraction] 50.2 % High 35.0-45.0 [facility] Comment on above: Performed By: #### 1 0231, 6399, 7600 #### [facility] of [place] [address] Boilermaker Apprentice: Fabio Disla MD Hemoglobin (Bld) [Mass/Vol] 16.4 g/dL High 11.7-15.5 [facility] Comment on above: Performed By: #### 1 0231, 63, 7600 #### [facility] of [place] [address] Boilermaker Apprentice: Fabio Disla MD Lymphocytes (Bld) [#/Vol] 1.63 10*3/uL Normal 850-3900 [facility] Comment on above: Performed By: #### 1 0231, 63, 7600 #### [facility] of [address], [address] [place] [address] Boilermaker Apprentice: Fabio Disla MD Lymphocytes/100 WBC (Bld) 16.8 % Normal [facility] Comment on above: Performed By: #### 1 0231, 63, 7600 #### [facility] [place] [address] Boilermaker Apprentice: Fabio Disla MD MCH (RBC) [Entitic mass] 30.4 pg Normal 27.0-33.0 [facility] Comment on above: Performed By: #### 1 023, 63, 7600 #### [facility] [place] [address] Boilermaker Apprentice: Fabio Disla MD MCHC (RBC) [Mass/Vol] 32.7 g/dL Normal 32.0-36.0 [facility] Comment on above: Result Comment: For adults, a slight decrease in the calculated MCHC value (in the range of 30 to 32 g/dL) is most likely not clinically significant; however, it should be interpreted with caution in correlation with other red cell parameters and the patient's clinical condition. Performed By: #### 1 0231, 63, 7600 #### [facility] of [place] [address] Boilermaker Apprentice: Fabio Disla MD MCV (RBC) [Entitic vol] 93.0 fL Normal 80.0-100.0 [facility] Comment on above: Performed By: #### 1 0231, 6399, 7600 #### [facility] of [address], [address] [place] [address] Boilermaker Apprentice: Fabio Disla MD Monocytes (Bld) [#/Vol] 0.825 10*3/uL Normal 200-950 [facility] Comment on above: Performed By: #### 1 0231, 6399, 7600 #### [facility] of [address], [address] [place] [address] Boilermaker Apprentice: Fabio Disla MD Monocytes/100 WBC (Bld) 8.5 % Normal [facility] Comment on above: Performed By: #### 1 0231, 6399, 7600 #### [facility] of [address], [address] [place] [address] Boilermaker Apprentice: Fabio Disla MD Neutrophils (Bld) [#/Vol] 6.8 10*3/uL Normal 0402-6087 [facility] Comment on above: Performed By: #### 1 0231, 63, 7600 #### [facility] of [address], [address] [place] [address] Boilermaker Apprentice: Fabio Disla MD Neutrophils/100 WBC (Bld) 70.1 % Normal [facility] Comment on above: Performed By: #### 1 0231, 63, 7600 #### [facility] of [address], [address] [place] [address] Boilermaker Apprentice: Fabio Disla MD Platelet mean volume (Bld) [Entitic vol] 11.7 fL Normal 7.5-12.5 [facility] Comment on above: Performed By: #### 1 0231, 6399, 7600 #### [facility] of [address], [address] [place] [address] Boilermaker Apprentice: Fabio Disla MD Platelets (Bld) [#/Vol] 267 10*3/uL Normal 140-400 [facility] Comment on above: Performed By: #### 1 0231, 6399, 7600 #### [facility] of [address], [address] [place] [address] Boilermaker Apprentice: Fabio Disla MD RBC (Bld) [#/Vol] 5.40 10*6/uL High 3.80-5.10 [facility] Comment on above: Performed By: #### 1 0231, 63, 7600 #### [facility] of [address], [address] [place] [address] Boilermaker Apprentice: Fabio Disla MD WBC (Bld) [#/Vol] 9.7 10*3/uL Normal 3.8-10.8 [facility] Comment on above: Performed By: #### 1 0231, 63, 7600 #### [facility] of [address], [address] [place] [address] Boilermaker Apprentice: Fabio Disla MD [facility] 07-17-2025 Albumin [Mass/Vol] 4.4 g/dL Normal 3.6-5.1 [facility] Comment on above: Performed By: #### 1 023, 63, 7600 #### [facility] of [address], [address] [place] [address] Boilermaker Apprentice: Fabio Disla MD Albumin/Globulin [Mass ratio] 1.6 {ratio} Normal 1.0-2.5 [facility] Comment on above: Performed By: #### 1 0231, 63, 7600 #### [facility] of [address], [address] [place] [address] Boilermaker Apprentice: Fabio Disla MD ALP [Catalytic activity/Vol] 58 U/L Normal 37-153 [facility] Comment on above: Performed By: #### 1 0231, 63, 7600 #### [facility] of [address], [address] [place] [address] Boilermaker Apprentice: Fabio Disla MD ALT [Catalytic activity/Vol] 19 U/L Normal 6-29 [facility] Comment on above: Performed By: #### 1 0231, 6399, 7600 #### [facility] of [address], [address] [place] [address] Boilermaker Apprentice: Fabio Disla MD AST [Catalytic activity/Vol] 24 U/L Normal 10-35 [facility] Comment on above: Performed By: #### 1 0231, 63, 7600 #### [facility] of [place] [address] Boilermaker Apprentice: Fabio Disla MD Bilirubin [Mass/Vol] 0.7 mg/dL Normal 0.2-1.2 [facility] Comment on above: Performed By: #### 1 0231, 6399, 7600 #### [facility] [address], [address] [place] [address] Boilermaker Apprentice: Fabio Disla MD BUN/CREATININE RATIO SEE NOTE: Normal 6-22 [facility] Comment on above: Result Comment: Not Reported: BUN and Creatinine are within reference range. Performed By: #### 1 023, 63, 7600 #### [facility] of [place] [address] Boilermaker Apprentice: Fabio Disla MD Calcium [Mass/Vol] 9.8 mg/dL Normal 8.6-10.4 [facility] Comment on above: Performed By: #### 1 0231, 63, 7600 #### [facility] [place] [address] Boilermaker Apprentice: Fabio Disla MD Chloride [Moles/Vol] 97 mmol/L Low 98-110 [facility] Comment on above: Performed By: #### 1 0231, 63, 7600 #### [facility] of [place] [address] Boilermaker Apprentice: Fabio Disla MD CO2 [Moles/Vol] 30 mmol/L Normal 20-32 [facility] Comment on above: Performed By: #### 1 0231, 6399, 7600 #### [facility] of [place] [address] Boilermaker Apprentice: Fabio Disla MD Creatinine [Mass/Vol] 0.63 mg/dL Normal 0.60-1.00 [facility] Comment on above: Performed By: #### 1 0231, 63, 7600 #### [facility] of [address], [address] [place] [address] Boilermaker Apprentice: Fabio Disla MD GFR/1.73 sq M.predicted among non-blacks MDRD (S/P/Bld) [Vol rate/Area] 94 mL/min/{1.73_m2} Normal > OR = 60 [facility] Comment on above: Performed By: #### 1 230, 63, 7600 #### [facility] of [place] [address] Boilermaker Apprentice: Fabio Disla MD Globulin (S) [Mass/Vol] 2.8 g/dL Normal 1.9-3.7 [facility] Comment on above: Performed By: #### 1 230, 63, 0 #### [facility] of [place] [address] Boilermaker Apprentice: Fabio Disla MD Glucose [Mass/Vol] 89 mg/dL Normal 65-99 [facility] Comment on above: Result Comment: Fasting reference interval Performed By: #### 1 230, 63, 0 #### [facility] of [place] [address] Boilermaker Apprentice: Fabio Disla MD Potassium [Moles/Vol] 4.3 mmol/L Normal 3.5-5.3 [facility] Comment on above: Performed By: #### 1 023, 63, 7600 #### [facility] of [place] [address] Boilermaker Apprentice: Fabio Disla MD Protein [Mass/Vol] 7.2 g/dL Normal 6.1-8.1 [facility] Comment on above: Performed By: #### 1 023, 63, 7600 #### [facility] of [place] [address] Boilermaker Apprentice: Fabio Disla MD Sodium [Moles/Vol] 138 mmol/L Normal 135-146 [facility] Comment on above: Performed By: #### 1 0231, 63, 7600 #### [facility] [address], [address] [place] [address] Boilermaker Apprentice: Fabio Disla MD Urea nitrogen [Mass/Vol] 16 mg/dL Normal 7-25 [facility] Comment on above: Performed By: #### 1 0231, 6399, 7600 #### [facility] [address], [address] [place] [address] Boilermaker Apprentice: Fabio Disla MD LIPID PANEL, [facility] 08- Cholesterol [Mass/Vol] 219 mg/dL High <200 [facility] Comment on above: Performed By: #### 1 0231, 63, 7600 #### [facility] [address], [address] [place] [address] Boilermaker Apprentice: Fabio Disla MD Cholesterol in HDL [Mass/Vol] 81 mg/dL Normal > OR = 50 [facility] Comment on above: Performed By: #### 1 0231, 63, 7600 #### [facility] [address], [address] [place] [address] Boilermaker Apprentice: Fabio Disla MD Cholesterol in LDL [Mass/Vol] 121 mg/dL High [facility] Comment on above: Result Comment: Refe rence range: <100 Desirable range <100 mg/dL for primary prevention; <70 mg/dL for patients with CHD or diabetic patients with > or = 2 CHD risk factors. LDL-C is now calculated using the Constantino-Alexx calculation, which is a validated novel method providing better accuracy than the Friedewald equation in the estimation of LDL-C. Constantino GIFFORD et al. LEEROY. 2013;310(19): 5849-7328 (http://education.GetGifted.[employer]/faq/VMC040) Performed By: #### 1 0231, 6399, 7600 #### [facility] [address], [address] [place] [address] Boilermaker Apprentice: Fabio Disla MD Cholesterol.total/C holesterol in HDL [Mass ratio] 2.7 {ratio} Normal <5.0 [facility] Comment on above: Performed By: #### 1 0231, 6399, 7600 #### [facility] [place] [address] Boilermaker Apprentice: Fabio Disla MD NON HDL CHOLESTEROL 138 mg/dL (calc) High <130 [facility] Comment on above: Result Comment: For patients with diabetes plus 1 major ASCVD risk factor, treating to a non-HDL-C goal of <100 mg/dL (LDL-C of <70 mg/dL) is considered a therapeutic option. Performed By: #### 1 0231, 6399, 7600 #### [facility] [place] [address] Boilermaker Apprentice: Fabio Disla MD Triglyceride [Mass/Vol] 74 mg/dL Normal <150 [facility] Comment on above: Performed By: #### 1 023, 63, 7600 #### [facility] [place] [address] Boilermaker Apprentice: Fabio Disla MD TSHon 07-17-2025 TSH Qn 4.28 m[IU]/L Normal 0.40-4.50 [facility] Comment on above: Performed By: #### 1 023, 6399, 7600 #### [facility] [place] [address] Boilermaker Apprentice: Fabio Disla MD CBC + DIFFon 10-20-2024 Baso # 0.03 x10EE3/UL Normal 0.00 - 0.10 [facility] Comment on above: Performed By: #### 2 74492 #### [facility],[address] [place] [address] Basophils/100 WBC (Bld) 0.3 % Normal 0.0 - 2.0 [facility] Comment on above: Performed By: #### 2 83663 #### [facility],[address] [place], [place] [id number] CBC + DIFF Normal [facility] Comment on above: Result Comment: CBC- COMPLETE BLOOD COUNT Performed By: #### 2 69069 #### [facility],[address] [place] [address] EO # 0.20 x10EE3/UL Normal 0.00 - 0.50 [facility] Comment on above: Performed By: #### 2 47278 #### [place] [address] Eosinophils/100 WBC (Bld) 2.6 % Normal 0.0 - 7.0 [facility] Comment on above: Performed By: #### 2 94950 #### [place] [address] Erythrocyte distribution width (RBC) [Ratio] 13.7 % Normal 12.0 - 15.6 [facility] Comment on above: Performed By: #### 2 34918 #### [place] [address] Hematocrit (Bld) [Volume fraction] 46.5 % High 34.0 - 46.0 [facility] Comment on above: Performed By: #### 2 60283 #### [place] [address] Hemoglobin (Bld) [Mass/Vol] 15.6 g/dL Normal 12.0 - 16.0 [facility] Comment on above: Performed By: #### 2 02829 #### [place] [id number] Lymph # 1.58 x10EE3/UL Normal 0.80 - 2.80 [facility] Comment on above: Performed By: #### 2 75794 #### [place] [id number] Lymphocytes/100 WBC (Bld) 20.0 % Normal 20.0 - 45.0 [facility] Comment on above: Performed By: #### 2 50389 #### [facility],[address] [place] [address] MANUAL DIFF N/A Normal [facility] Comment on above: Performed By: #### 2 96854 #### [facility],[address] [place] [address] MCH (RBC) [Entitic mass] 30 pg Normal 27 - 33 [facility] Comment on above: Performed By: #### 2 85239 #### [facility],[address] [place] [address] MCHC 34 X10 3 Normal 32 - 36 [facility] Comment on above: Performed By: #### 2 39927 #### [place] [address] MCV (RBC) [Entitic vol] 90 fL Normal 80 - 99 [facility] Comment on above: Performed By: #### 2 64582 #### [place] [address] [place] # 0.56 x10EE3/UL Normal 0.20 - 1.00 [facility] Comment on above: Performed By: #### 2 35541 #### [facility],[address] [place] [address] MONOS % 7.1 % Normal 0.0 - 10.0 [facility] Comment on above: Performed By: #### 2 90669 #### [facility],[address] [place] [address] Morphology Praveen (Bld) [Interp] N/A Normal [facility] Comment on above: Performed By: #### 2 11330 #### [place] [address] Neut # 5.57 x10EE3/UL Normal 1.50 - 7.10 [facility] Comment on above: Performed By: #### 2 55206 #### [place] [address] Neutrophils/100 WBC (Bld) 70.1 % Normal 46.0 - 76.0 [facility] Comment on above: Performed By: #### 2 65311 #### [facility],[address] [place] [address] PLATELET 280 x10EE3/UL Normal 150 - 450 [facility] Comment on above: Performed By: #### 2 80315 #### [facility],[address] [place] [address] Platelet mean volume (Bld) [Entitic vol] 9.0 fL Normal 6.6 - 10.5 [facility] Comment on above: Result Comment: AUTO MATED DIFFERENTIAL Performed By: #### 2 72321 #### [facility],[address] [place] [address] RBC 5.18 x 10EE6/UL Normal 4.10 - 5.30 [facility] Comment on above: Performed By: #### 2 80457 #### [facility],[address] [place] [address] WBC 7.9 x 10EE3/UL Normal 4.5 - 10.8 [facility] Comment on above: Performed By: #### 2 15403 #### [facility],[address] [place] [address] CHEST 1 VIEWon 10-20-2024 CHEST 1 VIEW [place] [address] Patient: CADENCE WRIGHT Phone#: : 1950 Age: 74 Gender: F Pt. Type: ER Account: [id number] Location: [facility] Ordering: LAURIE ARNETT Exam Date: 10/20/2024/10:42 Family Phys: IVETTE MARTIN Charge Code: [id number] Physician: [place] Order #: [id number] Dose#: PROCEDURE: X-RAY CHEST 1 VIEW COMPARISON: [facility], XR, CHEST 2 VIEWS, 02/08/2024, 10:06. INDICATIONS: Chest pain. FINDINGS: LUNGS: The lungs are mildly hyperinflated. There is a 7 millimeter mid lung nodule not visualized on prior exam. Nodule was reported on prior CT. VASCULATURE: Normal. Unremarkable pulmonary vasculature. CARDIAC: Normal. No cardiac silhouette abnormality or cardiomegaly. MEDIASTINUM: Normal. No visible mass or adenopathy. PLEURA: Normal. No effusion or pleural thickening. BONES: Normal. No fracture or visible bony lesion. OTHER: Negative. CONCLUSION: 1. Mild hyperinflation. There is no evidence of acute abnormality. There has been no significant interval change. Dictated by: Yvette Rutherford MD on 10/20/2024 at 11:45 Approved by: Yvette Rutherford MD on 10/20/2024 at 11:51 Normal [facility] CMP with eGFRon 10-20-2024 AGE 74 years Normal [facility] Comment on above: Performed By: #### 2 27568 ####[facility],[address] [place] [address] Albumin [Mass/Vol] 3.8 g/dL Normal 3.4 - 5.0 [facility] Comment on above: Performed By: #### 2 87368 ####[facility],[address] [place] [address] Albumin/Globulin [Mass ratio] 1.0 {ratio} Normal 0.9 - 1.6 [facility] Comment on above: Performed By: #### 2 72714 ####[facility],[address] [place] [address] ALK PHOS 74 U/L Normal 46 - 116 [facility] Comment on above: Performed By: #### 2 63734 ####[address] [address] ALT [Catalytic activity/Vol] 33 U/L Normal 16 - 63 [facility] Comment on above: Performed By: #### 2 87074 ####[address] [address] Anion gap [Moles/Vol] 11 mmol/L Normal 10 - 20 [facility] Comment on above: Performed By: #### 2 09974 ####[facility],[address] [place], [place] [id number] AST [Catalytic activity/Vol] 33 U/L Normal 13 - 39 [facility] Comment on above: Performed By: #### 2 41722 ####[facility],[address] [place] [address] B/C RATIO 16 ratio Normal 0 - 30 [facility] Comment on above: Performed By: #### 2 12635 ####[facility],[address] [place] [address] Bilirubin [Mass/Vol] 0.6 mg/dL Normal 0.2 - 1.0 [facility] Comment on above: Performed By: #### 2 82827 ####[facility],[address] [place] [address] Calcium [Mass/Vol] 9.9 mg/dL Normal 8.5 - 10.1 [facility] Comment on above: Performed By: #### 2 55452 ####[facility],[address] [place] [address] Chloride [Moles/Vol] 101 mmol/L Normal 98 - 107 [facility] Comment on above: Performed By: #### 2 58516 ####[facility],[address] [place] [address] CMP with eGFR Normal [facility] Comment on above: Result Comment: COMP REHENSIVE METABOLIC PANEL Performed By: #### 2 26971 ####[facility],[address] [place] [address] CO2 [Moles/Vol] 32.9 mmol/L High 21.0 - 32.0 [facility] Comment on above: Performed By: #### 2 49537 ####[facility],[address] [place] [address] Creatinine [Mass/Vol] 0.81 mg/dL Normal 0.55 - 1.02 [facility] Comment on above: Performed By: #### 2 50968 ####[facility],[address] [place] [address] GFR/1.73 sq M.predicted among non-blacks MDRD (S/P/Bld) [Vol rate/Area] mL/min/{1.73_m2} Normal 60 - 999 [facility] Comment on above: Performed By: #### 2 61330 ####[facility],[address] [place] [address] Result Comment: ACCO RDING TO THE NATIONAL KIDNEY DISEASE EDUCATION PROGRAM(NKDE), A NORMAL eGFR IS A VALUE GREATER THAN OR EQUAL TO 60 ML/MIN/1.73 SQ METERS. CHRONIC KIDNEY DISEASE: <60mL/MIN/1.73 SQ METERS KIDNEY FAILURE: <15mL/MIN/1.73 SQ METERS THIS TEST SHOULD ONLY BE USED FOR PATIENTS 18 YEARS OF AGE AND OLDER. Globulin (S) [Mass/Vol] 4.0 g/dL High 1.5 - 3.8 [facility] Comment on above: Performed By: #### 2 24499 ####[facility],[address] [place], [place] [id number] Glucose [Mass/Vol] 97 mg/dL Normal 74 - 106 [facility] Comment on above: Performed By: #### 2 36766 ####[facility],[address] [place] [address] Potassium [Moles/Vol] 4.0 mmol/L Normal 3.5 - 5.1 [facility] Comment on above: Performed By: #### 2 62347 ####[facility],[address] [place], [place] [id number] Protein [Mass/Vol] 7.8 g/dL Normal 6.4 - 8.2 [facility] Comment on above: Performed By: #### 2 62045 ####[facility],[address] [place] [address] Sodium [Moles/Vol] 141 mmol/L Normal 136 - 145 [facility] Comment on above: Performed By: #### 2 82069 ####[facility],[address] [place] [address] Urea nitrogen [Mass/Vol] 13 mg/dL Normal 7 - 18 [facility] Comment on above: Performed By: #### 2 43011 ####[facility],[address] [place] [address] ED MED ADMINISTRATION DETAIL on 10-20-2024 ED MED ADMINISTRATION DETAIL [employer] Medication Administration Record [address] [address] [id number] 10/20/2024 Patient: CADENCE WRIGHT Sex: Female : 1950 Age: 74y MEASUREMENTS: Wt: 56.7 kg, Ht/Rashad: 63.0 in, BMI: 22.14 ALLERGIES: No known drug allergies Medication Ordered Medication Administration Date/Time Normal [facility] ED NURSES CLINICAL NOTEon ED NURSES CLINICAL NOTE Nurse Narrative Nurse Clinical Narrative [address] [address] [id number] 10/20/2024 Patient: CADENCE WRIGHT Sex: Female : 1950 Age: 74y Disposition: Discharge to Home Disposition Decision Time: 12:54 10/20/2024 Departure Time: 13:20 10/20/2024 TRIAGE Arrived by private vehicle. Historian: patient. Accompanied by family and daughter. Patient has a primary care physician. Primary physician (Geovany). Triage time: 10:15 10/20/2024. Acuity: LEVEL 3. Chief Complaint: CHEST PAIN and DISCOMFORT and LEFT ARM PAIN. This is a new problem. (Wed). ( Pt started with left below the armpit on the left side of her breast rib area with a hard stabbing pain. Worse with movement.). The patient has had a nonproductive cough. It has been similar to previous symptoms. SEPSIS SCREEN: NEGATIVE. SIRS criteria negative: heart rate greater than 90. No possible sources of infection. -- 10:28 10/20/24 DENISE Naik R.N. 10:23 10/20/24. BP: 120/65 MAP: 83. HR: 98. RR: 16. O2 saturation: 93% Temperature: 98.5 F. Pain level now 2/10. Describes the pain as sharp and well localized. -- 10:24 10/20/24 DENISE Naik R.N. Measurements: 10:10/20/24 Wt: 56.7 kg, Ht/Rashad: 63.0 in, BMI: 22.14 -- 10:10/20/24 DENISE Naik R.N. Medications: 1 of 3 Nurse Narrative Breo Ellipta 200 mcg-25 mcg/dose powder for inhalation: 1 inhalation once a day every AM. -- 10:18 10/20/24 DENISE Naik R.N. albuterol sulf 90 mcg/actuation breath activated powder inhaler,sensor: 2 inhalation every 4-6 hours as needed for chronic obstructive pulmonary disease. -- 10:19 10/20/24 DENISE Naik R.N. Allergies: no known drug allergies -- 10:18 10/20/24 DENISE Naik R.N. Problems: COPD - Chronic Obstructive Pulmonary Disease: Active -- 10:20 10/20/24 DENISE Naik R.N. ADDITIONAL SURGERIES: Hysterectomy -- 10:20 10/20/24 DENISE Naik R.N. tear duct -- 10:20 10/20/24 DENISE Naik R.N. History 10:15 10/20/24. SOCIAL HX: Never smoker. No alcohol use or drug use. The patient has not traveled outside the [place] Infectious disease exposure: No infectious disease exposure. ABUSE ASSESSMENT: The patient answered yes to the question(s) Do you feel safe in your home? and no to the question(s) Are you afraid to go home?. SELF HARM ASSESSMENT: Self harm assessment was performed. The patient answered no to the question(s) Have you recently felt down, depressed, or hopeless? and Do you have thoughts of harming or killing yourself?. FALL RISK ASSESSMENT: Fall risk assessment completed. Risk factors identified include patient age greater than 65 years. -- 10:28 10/20/24 DENISE Naik R.N. Interventions 10:15 10/20/24. Advanced care plan discussed with patient. Patient does not have advanced directive. Patient has a living will. -- 10:28 10/20/24 DENISE Naik R.N. 2 of 3 Nurse Narrative PHYSICAL ASSESSMENT 10:52 10/20/24. GENERAL / NEURO / PSYCH: Alert. Oriented X 4. Appears in no acute distress. RESPIRATORY: Respirations not labored. Left chest wall tenderness (On the left side of pt's chest by her breast). CVS: Heart sounds within normal limits. Pulses within normal limits. Capillary refill less than 2 seconds. EXTREMITIES: No lower extremity edema. SKIN: Skin is warm and dry. Skin is non-tender. -- 11:02 10/20/24 DENISE Naik R.N. NURSING PROGRESS NOTES 10:39 10/20/24. Patient identifiers checked. Call light placed in reach. Side rails up x 2. Bed placed in lowest position. Brakes of bed on. -- 11:04 10/20/24 DENISE Naik R.N. 10:45 10/20/24. Site #1 started via IV in the right antecubital space with a 20g angiocath with aseptic technique and good blood return; 1 attempt. Blood drawn: rainbow set tube(s). Labeled in the presence of the patient and sent to the lab. Saline lock flushed with 5 mL saline. -- 11:03 10/20/24 DENISE Naik R.N. 13:07 10/20/24. BP: 108/52 MAP: 77 mmHg. HR: 79 bpm. -- 13:19 10/20/24 DENISE Naik R.N. DISPOSITION / DISCHARGE 13:20 10/20/24. Condition at departure: improved. No learning barriers present. Discharge instructions provided and reviewed with the family (daughter). Reviewed warnings (reasons to come back). Reviewed medication(s) side effects information (OTC). Reviewed referral to a primary care physician. Patient verbalized understanding. Written instructions provided in Malaysian. The patient was discharged by the physician. The patient was discharged home and accompanied by family. The patient left ambulatory and via private vehicle. Family member driving. -- 14:03 10/20/24 DENISE Naik R.N. Departure time: 13:20 10/20/2024. -- 14:03 10/20/24 DENISE Naik R.N. 13:20 10/20/24. Site #1 removed upon discharge. Catheter intact. Bandaid (more content not included)... Normal [facility] ED ORDER SHEET (CPOE ONLY)on 10-20-2024 ED ORDER SHEET (CPOE ONLY) Order Sheet Order Sheet [address] [place] [address] [id number] 10/20/2024 Patient: CADENCE WRIGHT Sex: Female : 1950 Age: 74y MEASUREMENTS: Wt: 56.7 kg, Ht/Rashad: 63.0 in, BMI: 22.14 ALLERGIES: No known drug allergies MEDICATION/IV/DRIP/F LUID ORDERS Order Description Priority Entered Acknowledged Completed LAB ORDERS Order Description Priority Entered Acknowledged Collected Completed CBC w Diff Stat Stat 10:31 10/20/2024 10:33 10/20/2024 10:34 10/20/2024 Milena Cao Natalie Yoder, D.O. R.N. R.N. CMP Stat Stat 10:31 10/20/2024 10:33 10/20/2024 10:34 10/20/2024 Milena Cao Natalie Yoder, D.O. R.N. R.N. Troponin-I Stat Stat 10:31 10/20/2024 10:33 10/20/2024 10:34 10/20/2024 Milena Cao Natalie Yoder, D.O. R.N. R.N. EKG - ED Stat Stat 10:31 10/20/2024 10:33 10/20/2024 10:34 10/20/2024 Milena Cao Natalie Yoder, 1 of 2 Order Sheet Ulices GamboaNMax RMaxNMax DIAGNOSTIC STUDY ORDERS Order Description Priority Entered Acknowledged Completed Chest 1V Stat Stat 10:31 10/20/2024 10:33 10:34 Laurie Arnett D.O. 10/20/2024 10/20/2024 Milena Vázquez R.N. R.N. Order Comments: 10:31 10/20/2024: Status: Not . Laurie Arnett D.O. Reason for Study: Chest Pain STAFF ORDERS Order Description Priority Entered Acknowledged Collected Completed Obtain Old EKG 10:31 10/20/2024 10:33 10/20/2024 10:34 10/20/2024 Milena Cao Natalie Yoder, D.O. R.NMax RAlix Vital signs every 15 10:31 10/20/2024 10:33 10/20/2024 10:34 10/20/2024 minutes Milena Cao Natalie Yoder, D.O. R.NMax RMaxNMax IV Saline Lock 10:31 10/20/2024 10:33 10/20/2024 10:34 10/20/2024 Milena Cao Natalie Yoder, D.O. R.NMax R.NMax [Electronically signed by Laurie Arnett D.O. (10/20/2024 12:58 EST)] 2 of 2 Normal [facility] ED PHYSICIAN CLINICAL REPORT on 10-20-2024 ED PHYSICIAN CLINICAL REPORT Narrative Physician Clinical Narrative [address] [address] [id number] 10/20/2024 Patient: CADENCE WRIGHT Sex: Female : 1950 Age: 74y Disposition: Discharge to Home Disposition Decision Time: 12:54 10/20/2024 Measurements Wt: 56.7 kg, Ht/Rashad: 63.0 in, BMI: 22.14 Initial Vital Sign Measured Time BP MAP HR RR O2Sat ETCO2 Temp Pain GCS RTS 10:23 10/20/2024 120/65 83 98 16 93% 98.5 F 2 Time Seen: 11:00 10/20/2024. Arrived- By private vehicle. Historian- patient. HISTORY OF PRESENT ILLNESS Chief Complaint: CHEST PAIN. It is described as tightness and it is described as located in the left chest area and left shoulder and arm. This started 2 weeks. At its maximum, severity described as 10 / 10. When seen in the E.D., it was almost gone. No nausea or vomiting. Similar symptoms previously. None. Recent medical care: Not recently seen/assessed. REVIEW OF SYSTEMS CVS: No pedal edema. RESPIRATORY: No cough. NEUROLOGICAL: No fainting episodes or headache. THROAT: No sore throat. EYES: No blurred vision. GI: No abdominal pain or black stools. CONSTITUTIONAL: 1 of 9 Narrative No fever or chills. MUSCULOSKELETAL: No joint pain. ENDO/HEME/LYMPH: No enlarged lymph nodes. SKIN: No skin rash. Status: Not . PAST HISTORY COPD - Chronic Obstructive Pulmonary Disease: [Active] Surgeries: Hysterectomy tear duct Medications: albuterol sulf 90 mcg/actuation breath activated powder inhaler,sensor: 2 inhalation every 4-6 hours as needed for chronic obstructive pulmonary disease. Breo Ellipta 200 mcg-25 mcg/dose powder for inhalation: 1 inhalation once a day every AM. Allergies: no known drug allergies SOCIAL HISTORY Never smoker. No alcohol use or drug use. ADDITIONAL NOTES The nursing notes have been reviewed. PHYSICAL EXAM Vital Signs: Have been reviewed. Appearance: Anxious. Appears to be in pain. Eyes: Pupils equal, round and reactive to light. Eyes normal inspection. ENT: Ears normal. Nose normal. Neck: Normal inspection. CVS: Normal heart rhythm and rate. Heart sounds normal. Respiratory: No respiratory distress. Breath sounds normal. Abdomen: Soft and nontender. Bowel sounds normal. 2 of 9 Narrative Skin: Skin warm and dry. Normal skin color. Normal skin turgor. Extremities: Extremities exhibit normal ROM. No lower extremity edema. Neuro: Oriented X 3. No motor deficit. LABS, X-RAYS, AND EKG Laboratory Tests: CBC + DIFF Final JYOTI: 10/20/2024 10:40:00 EST MsgRcvd: 10/20/2024 11:30 EST Lab Test Result Reference Status Received Comments 10/20/2024 11:30 CBC-COMPLETE CBC + DIFF Final EST BLOOD COUNT 10/20/2024 11:30 WBC 7.9 x 10/UL 4.5 - 10.8 Final EST 10/20/2024 11:30 RBC 5.18 x 10/UL 4.10 - 5.30 Final EST 10/20/2024 11:30 HEMOGLOBIN 15.6 g/dl 12.0 - 16.0 Final EST 46.5 % 10/20/2024 11:30 HEMATOCRIT 34.0 - 46.0 Final Above high normal EST 10/20/2024 11:30 MCV 90 fl 80 - 99 Final EST 10/20/2024 11:30 MCH 30 pg 27 - 33 Final EST 10/20/2024 11:30 MCHC 34 X10 3 32 - 36 Final EST 10/20/2024 11:30 RDW/CV 13.7 % 12.0 - 15.6 Final EST 3 of 9 Narrative 10/20/2024 11:30 PLATELET 280 x10/UL 150 - 450 Final EST 10/20/2024 11:30 AUTOMATED MPV 9.0 fl 6.6 - 10.5 Final EST DIFFERENTIAL 10/20/2024 11:30 NEUT % 70.1 % 46.0 - 76.0 Final EST 10/20/2024 11:30 LYMPH % 20.0 % 20.0 - 45.0 Final EST 10/20/2024 11:30 MONOS % 7.1 % 0.0 - 10.0 Final EST 10/20/2024 11:30 EO % 2.6 % 0.0 - 7.0 Final EST 10/20/2024 11:30 BASO % 0.3 % 0.0 - 2.0 Final EST 10/20/2024 11:30 Lymph # 1.58 x10/UL 0.80 - 2.80 Final EST 10/20/2024 11:30 Neut # 5.57 x10/UL 1.50 - 7.10 Final EST 10/20/2024 11:30 [place] # 0.56 x10/UL 0.20 - 1.00 Final EST 10/20/2024 11:30 EO # 0.20 x10/UL 0.00 - 0.50 Final EST 10/20/2024 11:30 Baso # 0.03 x10/UL 0.00 - 0.10 Final EST 10/20/2024 11:30 MANUAL DIFF N/A New Order EST 10/20/2024 11:30 MORPHOLOGY N/A New Order EST 4 of 9 Narrative CMP with eGFR Final JYOTI: 10/20/2024 10:40:00 EST MsgRcvd: 10/20/2024 11:47 EST Lab Test Result Reference Status Received Comments COMPREHENSIVE 10/20/2024 CMP with eGFR Final METABOLIC 11:47 EST PANEL 10/20/2024 SODIUM 141 mmol/l 136 - 145 Final 11:47 EST 10/20/2024 POTASSIUM 4.0 mmol/L 3.5 - 5.1 Final 11:47 EST 10/20/2024 CHLORIDE 101 mmol/L 98 - 107 Final 11:47 EST 32.9 mmol/L 10/20/2024 CO2 Above high 21.0 - 32.0 Final 11:47 EST normal 10/20/2024 GLUCOSE 97 mg/dl 74 - 106 Final 11:47 EST 10/20/2024 BUN 13 mg/dl 7 - 18 Final 11:47 EST 10/20/2024 CREATININE 0.81 mg/dl 0.55 - 1.02 Final 11:47 EST 10/20/2024 AST/SGOT 33 U/ (more content not included)... Normal [facility] ED SUPER BILLon 10-20-2024 ED SUPER BILL [address] [address] [id number] 10/20/2024 Patient: CADENCE WRIGHT Sex: Female : 1950 Age: 74y Item Professional Category Description Facility Code Code Quantity Fee Total Nurse/E/M EMERGENCY 394571 1 $0.00 $0.00 DEPARTMENT VISIT MODERATE SEVERITY (01093-07) Grand Total $0.00 Providers Laurie Arnett D.O. Chief Complaint CHEST PAIN. Principal Diagnosis Chest pain characterized as discomfort. ICD-10 Codes 1 of 2 [facility] R07.89: Other chest pain 2 of 2 Normal [facility] ED VISIT SUMMARYon ED VISIT SUMMARY Visit Overview Visit Overview [address] [address] [id number] 10/20/2024 Patient: CADENCE WRIGHT Sex: Female : 1950 Age: 74y 10/20/2024 02:04 PM EST ED Arrival:10:05 10/20/2024 EST Status:not Recent Travel:no Language:deu Adv Directive:No Isolation Status: Ethnicity:N Fall Risk:risk Infectious Disease Exposure:no Measurements:5'3 / 160.0 Self-Harm Status:risk Sepsis Screen:negative cm 125.0 lb / 56.7 kg Chief Complaint:CHEST DISCOMFORT, CHEST PAIN, LEFT ARM PAIN, ([place]), (Pt started with left below the armpit on the left side of her breast rib area with a hard stabbing pain. Worse with movement. ), and (Wed) ALLERGIES No Known Drug Allergies HOME MEDICATIONS 3 Visit Overview albuterol sulf 90 mcg/actuation breath activated powder inhaler,sensor: 2 inhalation every 4-6 hours as needed for chronic obstructive pulmonary disease. Breo Ellipta 200 mcg-25 mcg/dose powder for inhalation: 1 inhalation once a day every AM. PAST MEDICAL HISTORY / PROBLEMS COPD - Chronic Obstructive Pulmonary Disease: Active PAST SURGICAL HISTORY Hysterectomy tear duct SOCIAL HISTORY Smoking status: No Alcohol use: No Drug use: No ED COURSE MEDICATIONS GIVEN IN EMERGENCY DEPARTMENT IV SITE INFORMATION INTAKE OUTPUT REASSESMENT (most recent) 10:52 10/20/24. GENERAL / NEURO / PSYCH: Alert. Oriented X 4. Appears in no acute distress. RESPIRATORY: Respirations not labored. Left chest wall tenderness (On the left side of pt's chest by her breast). CVS: Heart sounds within normal limits. Pulses within normal limits. Capillary refill less than 2 seconds. EXTREMITIES: No lower extremity edema. SKIN: Skin is warm and dry. Skin is non-tender. VITAL SIGNS First Vitals Last Vitals 3 Visit Overview First Vitals Last Vitals Temp 10:10/20/24 98.5 F Temp 13:10/20/24 BP 10:10/20/24 120/65 BP 13:10/20/24 110/65 HR 10:10/20/24 98 HR 13:10/20/24 80 RR 10:10/20/24 16 RR 13:10/20/24 O2 Sat 10:10/20/24 93% O2 Sat 13:22 10/20/24 Pain 10:23 10/20/24 2 Pain 13:22 10/20/24 ETCO2 10:23 10/20/24 ETCO2 13:22 10/20/24 GCS 10:23 10/20/24 GCS 13:22 10/20/24 RTS 10:23 10/20/24 RTS 13:22 10/20/24 PROCEDURES NURSING INTERVENTIONS LABS / STUDIES LABS / STUDIES ORDERED CBC w Diff Chest 1V CMP EKG - ED Troponin-I CLINICAL IMPRESSION CHEST PAIN CHARACTERIZED DISCOMFORT 3 of 3 Normal [facility] ED VITALS FLOW SHEETon 10-20 ED VITALS FLOW SHEET Vitals [place] [address] [id number] 10/20/2024 Patient: CADENCE WRIGHT Sex: Female : 1950 Age: 74y Measurements Wt: 56.7 kg, Ht/Rashad: 63.0 in, BMI: 22.14 Measured Time BP MAP HR RR O2Sat ETCO2 Temp Pain GCS RTS 13:22 10/20/2024 110/65 78 80 13:07 10/20/2024 108/52 77 79 12:52 10/20/2024 111/76 83 91 12:37 10/20/2024 115/52 75 78 12:22 10/20/2024 105/57 73 78 12:07 10/20/2024 110/64 79 83 10:23 10/20/2024 120/65 83 98 16 93% 98.5 F 2 1 of 1 Normal [facility] TROPONINon 10-20-2024 HS TROPONIN <4.0 Normal 0.0 - 51.4 [facility] Comment on above: Performed By: #### 2 21020 #### [place] [id number] BMP with eGFRon 02-08-2024 AGE 73 years Normal [facility] Comment on above: Performed By: #### 2 34161 #### [address] [address] Anion gap [Moles/Vol] 10 mmol/L Normal 10 - 20 mmol/L [facility], [facility].; [facility], [facility]. Comment on above: Performed By: #### 2 08226 #### [facility],[address] [place], [place] [id number] BMP with eGFR Normal [facility] Comment on above: Result Comment: BASI C METABOLIC PANEL Performed By: #### 2 40296 #### [facility],[address] [place] [address] Calcium [Mass/Vol] 10.1 mg/dL Normal 8.5 - 10. 1 mg/dL [facility], [facility].; [facility] Comment on above: Performed By: #### 2 19918 #### [place] [address] Chloride [Moles/Vol] 102 mmol/L Normal 98 - 107 mmol/L [facility] Comment on above: Performed By: #### 2 82618 #### [place] [id number] CO2 [Moles/Vol] 33.3 mmol/L Abnormal 21.0 - 32.0 mmol/L [facility], [facility].; [facility] Comment on above: Performed By: #### 2 25428 #### [place] [id number] Creatinine [Mass/Vol] 0.79 mg/dL Normal 0.55 - 1.02 mg/dL [facility], [facility].; [facility], [facility]. Comment on above: Performed By: #### 2 76742 #### [place] [address] GFR/1.73 sq M.predicted among non-blacks MDRD (S/P/Bld) [Vol rate/Area] mL/min/{1.73_m2} Normal 60 - 999 [facility] Comment on above: Performed By: #### 2 97794 #### [address] [address] Result Comment: ACCO RDING TO THE NATIONAL KIDNEY DISEASE EDUCATION PROGRAM(NKDE), A NORMAL eGFR IS A VALUE GREATER THAN OR EQUAL TO 60 ML/MIN/1.73 SQ METERS. CHRONIC KIDNEY DISEASE: <60mL/MIN/1.73 SQ METERS KIDNEY FAILURE: <15mL/MIN/1.73 SQ METERS THIS TEST SHOULD ONLY BE USED FOR PATIENTS 18 YEARS OF AGE AND OLDER. Glucose [Mass/Vol] 109 mg/dL Abnormal 74 - 106 mg/dL [facility].; [facility], [facility] Comment on above: Performed By: #### 2 00412 #### [place] [address] Potassium [Moles/Vol] 4.1 mmol/L Normal 3.5 - 5.1 mmol/L [facility].; [facility], [facility]. Comment on above: Performed By: #### 2 40211 #### [address] [address] Sodium [Moles/Vol] 141 mmol/L Normal 136 - 145 mmol/L [facility].; [facility], [facility]. Comment on above: Performed By: #### 2 11153 #### [address] [address] Urea nitrogen [Mass/Vol] 8 mg/dL Normal 7 - 18 mg/dL [facility].; [facility], [facility]. Comment on above: Performed By: #### 2 48599 #### [address] [address] CBC + DIFFon 02-08-2024 Baso # 0.02 x10EE3/UL Normal 0.00 - 0.10 [facility] Comment on above: Performed By: #### 2 35329 ####[place] [id number] Basophils/100 WBC (Bld) 0.3 % Normal 0.0 - 2.0 % [facility], [facility].; [facility], [facility]. Comment on above: Performed By: #### 2 13479 ####[place] [address] CBC + DIFF Normal [facility] Comment on above: Result Comment: CBC- COMPLETE BLOOD COUNT Performed By: #### 2 56919 ####[place] [address] EO # 0.24 x10EE3/UL Normal 0.00 - 0.50 [facility] Comment on above: Performed By: #### 2 22679 ####[place] [address] Eosinophils/100 WBC (Bld) 3.5 % Normal 0.0 - 7.0 % [facility] Comment on above: Performed By: #### 2 61265 ####[place] [address] Erythrocyte distribution width (RBC) [Ratio] 13.5 % Normal 12.0 - 15.6 % [facility] Comment on above: Performed By: #### 2 13039 ####[place] [address] Hematocrit (Bld) [Volume fraction] 49.8 % Abnormal 34.0 - 46.0 % [facility] Comment on above: Performed By: #### 2 27040 ####[place] [address] Hemoglobin (Bld) [Mass/Vol] 16.0 g/dL Normal 12.0 - 16.0 g/dL [facility] Comment on above: Performed By: #### 2 17327 ####[place] [address] Lymph # 1.34 x10EE3/UL Normal 0.80 - 2.80 [facility] Comment on above: Performed By: #### 2 95429 ####[place] [address] Lymphocytes/100 WBC (Bld) 19.1 % Abnormal 20.0 - 45.0 % [facility]; [facility] Comment on above: Performed By: #### 2 57505 ####[place] [address] MANUAL DIFF N/A Normal [facility].; [facility] Comment on above: Performed By: #### 2 76043 ####[place] [address] MCH (RBC) [Entitic mass] 28 pg Normal 27 - 33 pg [facility]; [facility]. Comment on above: Performed By: #### 2 52884 ####[place] [address] MCHC 32 X10 3 Normal 32 - 36 [facility] Comment on above: Performed By: #### 2 08312 ####[place] [address] MCV (RBC) [Entitic vol] 87 fL Normal 80 - 99 fL [facility]; [facility], [facility]. Comment on above: Performed By: #### 2 04846 ####[place] [address] [place] # 0.53 x10EE3/UL Normal 0.20 - 1.00 [facility] Comment on above: Performed By: #### 2 94288 ####[place] [address] MONOS % 7.6 % Normal 0.0 - 10.0 [facility] Comment on above: Performed By: #### 2 92692 ####[facility],[address] [place] [address] Morphology Praveen (Bld) [Interp] N/A Normal [facility]; [facility] Comment on above: Performed By: #### 2 77643 ####[facility],[address] [place] [address] Neut # 4.85 x10EE3/UL Normal 1.50 - 7.10 [facility] Comment on above: Performed By: #### 2 97817 ####[place] [address] Neutrophils/100 WBC (Bld) 69.4 % Normal 46.0 - 76.0 % [facility]; [facility] Comment on above: Performed By: #### 2 80748 ####[place] [address] PLATELET 319 x10EE3/UL Normal 150 - 450 [facility] Comment on above: Performed By: #### 2 08397 ####[place] [address] Platelet mean volume (Bld) [Entitic vol] 8.4 fL Normal 6.6 - 10.5 fL [facility]; [facility]. Comment on above: Result Comment: AUTO MATED DIFFERENTIAL Performed By: #### 2 97646 ####[facility],[address] [place] [address] RBC 5.74 x 10EE6/UL High 4.10 - 5.30 [facility] Comment on above: Performed By: #### 2 75963 ####[place] [address] WBC 7.0 x 10EE3/UL Normal 4.5 - 10.8 [facility] Comment on above: Performed By: #### 2 42343 ####[place] [id number] CHEST 2 VIEWSon 02-08-2024 CHEST 2 VIEWS [facility] [address] [place], [place] [address] Patient: CADENCE WRIGHT Phone#: : 1950 Age: 73 Gender: F Pt. Type: Out Account: [id number] Location: Ordering: LINDA ARMENTA Exam Date: 02/08/2024/10:06 Family Phys: IVETTE VERONICA Charge Code: 257302 Physician: [place] Order #: [id number] Dose#: PROCEDURE: X-RAY CHEST 2 VIEWS COMPARISON: [facility], XR, CHEST PA/LAT, 12/04/2014, 9:58. INDICATIONS: Moderate COPD. FINDINGS: LUNGS: There are chronic interstitial changes. Hyperaeration of the lung partida with flattening of the diaphragm and increased retrosternal clear space. No significant pulmonary parenchymal abnormalities. VASCULATURE: Normal. Unremarkable pulmonary vasculature. CARDIAC: Normal. No cardiac silhouette abnormality or cardiomegaly. MEDIASTINUM: Aortic arch calcification. PLEURA: Normal. No effusion or pleural thickening. BONES: Normal. No fracture or visible bony lesion. OTHER: Negative. CONCLUSION: 1. No focal acute pulmonary parenchymal abnormality 2. Hyperaeration of the lung partida, consistent with COPD Dictated by: Leigh Ann Aguero MD on 02/08/2024 at 10:13 Approved by: Leigh Ann Aguero MD on 02/08/2024 at 10:16 Normal [facility] Laboratory - Chemistry and C hemistry - challengeon 02-08-2024 Basic metabolic 2000 panel BMP with eGFR Normal [employer] [facility] [employer] GFR/1.73 sq M.predicted among blacks MDRD (S/P/Bld) [Vol rate/Area] mL/min/{1.73_m2} Normal 60 - 999 {ML/MINUTE} [employer] [facility] GFR/1.73 sq M.predicted MDRD (S/P/Bld) [Vol rate/Area] mL/min/{1.73_m2} Normal 60 - 999 {ML/MINUTE} [employer] Laboratory - Hematology and Cell countson 02-08-2024 Basophils (Bld) [#/Vol] 0.02 {3/UL} Normal 0.00 - 0.10 {3/UL} [employer] CBC W Auto Differential panel (Bld) CBC + DIFF Normal [employer] Eosinophils (Bld) [#/Vol] 0.24 {3/UL} Normal 0.00 - 0.50 {3/UL} [employer] Lymphocytes (Bld) [#/Vol] 1.34 {3/UL} Normal 0.80 - 2.80 {3/UL} [employer] MCHC (RBC) [Mass/Vol] 32 {X10_3} Normal 32 - 36 {X10_3} [employer] Monocytes (Bld) [#/Vol] 0.53 {3/UL} Normal 0.20 - 1.00 {3/UL} [employer] Monocytes/100 WBC (Bld) 7.6 % Normal 0.0 - 10.0 % [employer] Neutrophils (Bld) [#/Vol] 4.85 {3/UL} Normal 1.50 - 7.10 {3/UL} [employer] Platelets (Bld) [#/Vol] 319 {3/UL} Normal 150 - 450 {3/UL} [employer] RBC (Bld) [#/Vol] 5.74 {6/UL} Abnormal 4.10 - 5.3 0 {6/UL} [employer] WBC (Bld) [#/Vol] 7.0 {3/UL} Normal 4.5 - 10.8 {3/UL} [employer] No Panel Informationon 02-07 AGE 73 {years} Normal [facility] Culture, Blood (WB)on 2021 CUB No growth in 5 days. Normal [facility] Comment on above: Performed By: #### M 200.1000 #### [facility] [address] [place], [place], [id number] Performed By: #### M 100.2200 #### [facility] [address] [place], [address] Urine Cultureon 02-21-2022 URC Mixed Gram Positive Organisms [place] Count 1000-10,000 MIXC Mixed contaminants. Submit a new specimen if indicated. Normal [facility] Comment on above: Performed By: #### M 100.2200 #### [facility] [address] [place], [place], [id number] 12 Lead EKGon 02-20-2022 12 Lead EKG [facility] [address] [place] [address] 12 Lead EKG 02/20/22 0823 MR#: [id number] Acct: [id number] Name: CADENCE WRIGHT Rep #: [id number] : 1950 71 From: Elio Shaw MD Attending Dr: Status: DEP ER Ordering Dr: Laurie Arnett DO Date: 02/20/22 Location: ED Sex: F C Admitted: Test Reason : SOB Blood Pressure : / mmHG Vent. Rate : 099 BPM Atrial Rate : 099 BPM P-R Int : 122 ms QRS Dur : 072 ms QT Int : 342 ms P-R-T Axes : 085 -35 064 degrees QTc Int : 438 ms Normal sinus rhythm Right atrial enlargement Left axis deviation Abnormal ECG Confirmed by ELIO SHAW MD ([id number]), greeting card editor TONY ROE ([id number]) on 02/22/2022 11:35:22 AM Referred By: KELLY Confirmed By:ELIO SHAW MD [id number] Date Elio Shaw MD CC: ERIC Martin; Dr. Laurie Arnett, DO Signed Normal [facility] BNP,B-Type NATRIURETIC PEPTI Marianne 02-20-2022 Natriuretic peptide B (Bld) [Mass/Vol] 14.4 pg/mL Normal 0-100 [facility] Comment on above: Performed By: #### L 503.6620 #### [facility] [address] [place], [address] CBC W/Diff, Automatedon Absolute Lymph 1.63 X10 3/uL Normal 0.83-4.51 [facility] Comment on above: Performed By: #### M 100.2200 #### [facility] [address] [place], [address] Absolute Neut 9.6 X10 3/uL High 2.0-7.7 [facility] Comment on above: Performed By: #### M 100.2200 #### [facility] [address] [place], [address] Basophils/100 WBC (Bld) 0.5 % Normal 0-1 [facility] Comment on above: Performed By: #### M 100.2200 #### [facility] [address] [place], [address] Eosinophils/100 WBC (Bld) 0.9 % Normal 0-5 [facility] Comment on above: Performed By: #### M 100.2200 #### [facility] [address] [place], [address] Erythrocyte distribution width (RBC) [Ratio] 12.9 % Normal 11.6-14.6 [facility] Comment on above: Performed By: #### M 100.2200 #### [facility] [address] [place], [address] Hematocrit (Bld) [Volume fraction] 47.6 % High 37-47 [facility] Comment on above: Performed By: #### M 100.2200 #### [facility] [address] [place], [address] Hemoglobin (Bld) [Mass/Vol] 16.0 g/dL High 12.0-15.0 [facility] Comment on above: Performed By: #### M 100.2200 #### [facility] [address] [place], [address] IG% 0.900 Normal 0.0-0.9 [facility] Comment on above: Result Comment: IG% - Immature Granulocytes (promyelocytes, myelocytes and metamyelocytes) > 1% indicates that a LEFT SHIFT is Present. Performed By: #### M 100.2200 #### [facility] [address] [place], [address] Lymphocytes/100 WBC (Bld) 12.7 % Low 19-41 [facility] Comment on above: Performed By: #### M 100.2200 #### [facility] [address] [place], [address] MCH (RBC) [Entitic mass] 30.0 pg Normal 27.0-32.0 [facility] Comment on above: Performed By: #### M 100.2200 #### [facility] [address] [place], [address] MCHC (RBC) [Mass/Vol] 33.6 g/dL Normal 32-36 [facility] Comment on above: Performed By: #### M 100.2200 #### [facility] [address] [place], [address] MCV (RBC) [Entitic vol] 89.3 fL Normal 81-99 [facility] Comment on above: Performed By: #### M 100.2199 #### [facility] [address] [place], [address] Monocytes/100 WBC (Bld) 10.6 % High 0-10 [facility] Comment on above: Performed By: #### M 100.2199 #### [facility] [address] [place], [address] Neutrophils/100 WBC (Bld) 74.4 % High 47-70 [facility] Comment on above: Performed By: #### M 100.2199 #### [facility] [address] [place], [address] Nucleated RBC (Bld) [#/Vol] 0 10*3/uL Normal 0-5 [facility] Comment on above: Performed By: #### M 100.2199 #### [facility] [address] [place], [address] Platelet mean volume (Bld) [Entitic vol] 11.0 fL Normal 6.2-12.0 [facility] Comment on above: Performed By: #### M 100.2199 #### [facility] [address] [place], [address] Platelets (Bld) [#/Vol] 269 10*3/uL Normal 150-450 [facility] Comment on above: Performed By: #### M 100.2199 #### [facility] [address] [place], [address] RBC (Bld) [#/Vol] 5.33 10*6/uL Normal 4.2-5.4 [facility] Comment on above: Performed By: #### M 100.2199 #### [facility] [address] [place], [address] RDW SD 42.2 fl Normal 35.1-43.9 [facility] Comment on above: Performed By: #### M 100.2199 #### [facility] [address] [place], [address] WBC (Bld) [#/Vol] 12.8 10*3/uL High 4.4-11.0 [facility] Comment on above: Performed By: #### M 100.2200 #### [facility] [address] [place], [address] COVID 19, KAJAL [facility](RT COLLECT )on 02-20-2022 SARS-CoV-2 (COVID-19) RNA KAJAL+probe Ql (Unsp spec) Negative Normal Not Detect [facility] Comment on above: Result Comment: Norm al Reference Range: Not Detected Method:(RT-PCR) real-time reverse transcriptase PCR [employer] Channelkit Instrument *The Food and Drug Administration (FDA) has issued an Emergency Use Authorization (EAU) for the Channelkit SARS-CoV-2 Assay for the rapid detection of the virus that causes COVID-19. This test has been validated, but the FDAs independent review of this validation is pending. *Negative results do not preclude infection and should not be used as the sole basis for treatment or patient management. Optimum specimen types and timing for peak viral levels during infections caused by SARS-CoV-2 have not been determined. Collection of multiple specimens from the same patient may be necessary to detect the virus. The possibility of a false negative result should be considered if the patient has clinical presentation or has had recent exposure. Performed By: #### M 100.2200 #### [facility] [address] [facility] [place], [address] CTA Chest W/WO Contraston CTA Chest W/WO Contrast [facility] Services [address] [place] [address] CTA Chest W/WO Contrast MR#: [id number] Acct: [id number] Name: CADENCE WRIGHT Rep #: [id number] : 1950 F 71 From: Saurabh abebe MD PCP: ERIC Hooper Status: REG ER Study: CTA Chest W/WO Contrast Date of Exam: 02/20/22 Exam# [id number] Ordering Dr: Laurie Arnett DO STUDY: CTA CHEST REASON FOR EXAM: Female, 71 years old. Hypoxia RADIATION DOSAGE (If Supplied By Facility): CTDIvol = ( 7.01 ) mGy, DLP = ( 173.15 ) mGycm TECHNIQUE: The examination was performed with the intravenous administration of IV 100mL Isovue-370. Post-processing of the angiographic images was performed, with multiplanar reformation and 3D reconstruction. Individualized dose optimization techniques were used for this CT. COMPARISON: Comparison is made with prior chest radiograph done earlier in the day. FINDINGS: Normal enhancement of the main pulmonary artery and right and left pulmonary arteries. Normal enhancement of the bilateral peripheral pulmonary arteries. There is no demonstrated pulmonary embolism. Normal thoracic aorta and visualized great vessels. There is no demonstrated aortic dissection. Normal heart and pericardium. Normal mediastinum. Normal hilar regions. Normal visualized trachea and bronchi. Hyperinflation. There is a 2.7cm x 0.8 cm irregular linear/nodular density in the anterior aspect of the right lower lobe. A neoplastic process should be ruled out. There is also evidence of a 6.5 mm x 6.5 mm nodular density in the lateral posterior aspect of the right lower lobe as seen on axial image #125. There is a 5.5 mm pleural-based nodule in the superior segment of the right lower lobe as seen on axial image #168. Mild degree of the bronchiectasis and patchy alveolar infiltrates are seen in the right lower lobe along the posterior medial segment. Normal pleura. Normal chest wall structures. There are degenerative changes of thoracic spine. Normal visualized upper abdomen. CT/CTA Chest W/WO Contrast IMPRESSION: 2.7 cm x 0.8 cm irregular nodular density in the anterior aspect of the right lower lobe. This also is of a 6.5 mm x 6.5 mm nodule in the lateral posterior aspect of the right lower lobe. Noncalcified 5.5 mm pleural-based nodule in the superior segment of the right lower lobe. Hyperinflation. Patchy alveolar infiltrates in the right lower lobe. Radiographic follow-up is recommended. No evidence of pulmonary embolism. Electronically Signed: Saurabh Wallace MD at 11:20 EDT , CC: ERIC Martin; Dr. Laurie Arnett DO Dietician: Signed Normal [facility] Chest 1 View (Portable)on Chest 1 View (Portable) [facility] Imaging Services [address] [place] [address] Chest 1 View (Portable) MR#: [id number] Acct: [id number] Name: CADENCE WRIGHT Rep #: [id number] : 1950 F 71 From: Carmel chairez MD PCP: ERIC Hooper Status: REG ER Study: Chest 1 View (Portable) Date of Exam: 02/20/22 Exam# [id number] Ordering Dr: Laurie Arnett DO HISTORY: cough. TECHNIQUE: XR Chest 1 View. # of images incl. paperwork: 1. COMPARISON: 10/03/2021. FINDINGS: CARDIOMEDIASTINAL STRUCTURES: Cardiac silhouette not enlarged. Mediastinal contour unremarkable with calcification of the aorta. LUNGS: Hyperinflated, suggesting COPD. Mild opacities in the right mid and lower lung. PLEURA: No pleural effusion or pneumothorax. OSSEOUS STRUCTURES: Osteopenia noted. RAD/Chest 1 View (Portable) IMPRESSION: Mild opacities in the right mid and lower lung, concerning for pneumonia. at 1104 Reported and signed by: Carmel Aguirre MD Electronically Signed: Carmel Aguirre MD at 11:03 EDT , CC: ERIC Martin; Dr. Laurie Arnett, Dietician: Signed Normal [facility] Comprehensive Metabolic Prof ilon 02-20-2022 Albumin [Mass/Vol] 3.6 g/dL Normal 3.2-5.0 [facility] Comment on above: Performed By: #### M 100.2200 #### [facility] [address] [place], [address] Albumin/Globulin [Mass ratio] 0.9 {ratio} Normal 0.9-2.4 [facility] Comment on above: Performed By: #### M 100.2200 #### [facility] [address] [place], [address] ALK P 68 U/L Normal 45-117 [facility] Comment on above: Performed By: #### M 100.2200 #### [facility] [address] [place], [address] ALT [Catalytic activity/Vol] 24 U/L Normal 13-56 [facility] Comment on above: Performed By: #### M 100.2200 #### [facility] [address] [place], [address] AST [Catalytic activity/Vol] 15 U/L Normal 15-37 [facility] Comment on above: Performed By: #### M 100.2200 #### [facility] [address] [place], [address] Bilirubin [Mass/Vol] 1.00 mg/dL Normal 0.20-1.00 [facility] Comment on above: Result Comment: For patients on eltrombopag therapy, use of Dimension [place] TBIL is not recommended. Performed By: #### M 100.2200 #### [facility] [address] [place], [address] BUN/CRE 15.0 RATIO Normal 10-20 [facility] Comment on above: Performed By: #### M 100.2200 #### [facility] [address] [place], [address] CA,Total 9.5 mg/dL Normal 8.5-10.1 [facility] Comment on above: Performed By: #### M 100.2199 #### [facility] [address] [place], [address] Chloride [Moles/Vol] 101 mmol/L Normal 98-107 [facility] Comment on above: Performed By: #### M 100.2199 #### [facility] [address] [place], [address] CO2 [Moles/Vol] 29.0 mmol/L Normal 21.0-32.0 [facility] Comment on above: Performed By: #### M 100.2199 #### [facility] [address] [place], [address] Creatinine [Mass/Vol] 0.86 mg/dL Normal 0.55-1.02 [facility] Comment on above: Result Comment: The validity of the calculated GFR GFRAA in patients over 70 years has not been determined. Clinical correlation is essential. Performed By: #### M 100.2199 #### [facility] [address] [place], [address] ECRCL 50.35 ml/min Normal [facility] Comment on above: Performed By: #### M 100.2199 #### [facility] [address] [place], [address] EST GFR - AA 83 mL/min Normal >60 [facility] Comment on above: Result Comment: Afri can Cymro GFR Calc Performed By: #### M 100.2199 #### [facility] [address] [place], [address] GAP 6 Normal 5-15 [facility] Comment on above: Performed By: #### M 100.2199 #### [facility] [address] [place], [address] GFR/1.73 sq M.predicted among non-blacks MDRD (S/P/Bld) [Vol rate/Area] 69 mL/min/{1.73_m2} Normal >60 [facility] Comment on above: Result Comment: Non- GFR Calc Performed By: #### M 100.2200 #### [facility] [address] [place], [address] Globulin (S) [Mass/Vol] 3.9 g/dL Normal 2.2-4.2 [facility] Comment on above: Performed By: #### M 100.2200 #### [facility] [address] [place], [address] Glucose [Mass/Vol] 95 mg/dL Normal 74-106 [facility] Comment on above: Performed By: #### M 100.2200 #### [facility] [address] [place], [address] Potassium [Moles/Vol] 3.9 mmol/L Normal 3.5-5.1 [facility] Comment on above: Performed By: #### M 100.2200 #### [facility] [address] [place], [address] Sodium [Moles/Vol] 136 mmol/L Normal 136-145 [facility] Comment on above: Performed By: #### M 100.2200 #### [facility] [address] [place], [address] T PROT 7.5 g/dL Normal 6.4-8.2 [facility] Comment on above: Performed By: #### M 100.2200 #### [facility] [address] [place], [address] Urea nitrogen [Mass/Vol] 13 mg/dL Normal 7-18 [facility] Comment on above: Performed By: #### M 100.2200 #### [facility] [address] [place], [address] D-Dimer Quantitative (DVT/PE )on 02-20-2022 D-DIMER QUANT 1.02 FEU/ug/m Invalid Interpretation Code 0.27-0.49 [facility] Comment on above: Result Comment: D-Di sander ELEVATED (>0.49): Additional studies and clinical assessments are indicated to conclude diagnosis of: Deep Vein Thrombosis (DVT) or Pulmonary Embolism (PE) CRITICAL VALUE VERIFIED. CALLED TO GOLDEN 02/20/22 1003 Sarah Frias. RESULTS READ BACK BY SAME . Performed By: #### M 100.2200 #### [facility] [address] [place], [place], [address] Emergency Department Summary on 02-20-2022 Emergency Department Summary [facility] Medical Records Department [address] [place] [address] Emergency Department Summary 02/20/22 MR#: [id number] Acct: [id number] Name: CADENCE WRIGHT Rep #: [id number] : 1950 71 From: Laurie Arnett DO PCP: ERIC Hooper Status:REG ER Location: ED HPI History of Present Illness Chief Complaint: Shortness of Breath Narrative Narrative: 8-year-old female presenting with shortness of breath. She states has been short of breath since last Sunday. She reports the highest temperature that she has had is 99 ???F. She was seen by her primary care provider who put her on azithromycin and prednisone. She felt as if she was getting better and is slowly feeling more weak, tired. She is having decreased p.o. intake but not vomiting. He has not had a true fever. She states he wears 2 years of oxygen at sleep normally but notes that she has been requiring oxygen while awake. She states he is dropped down to 84%. She has dyspnea with exertion. No leg swelling or edema. She denies any chest pain. No diarrhea or constipation. She states other than COPD she has no significant medical history. [facility] Medical History COPD (chronic obstructive pulmonary disease) Home Medications albuterol sulfate [Proair Hfa] 2 puff INHALATION Q6H PRN PRN 10/31/13 [History Last Taken 11/07/13 04:30] cephalexin 500 mg PO Q8 10/31/13 [History Last Taken Unknown] mometasone [Asmanex 220 mcg Twisthaler] 220 mcg INHALATION BID 10/31/13 [History Last Taken 11/07/13 04:30] oxycodone-acetaminop hen 1 - 2 tab PO Q4H PRN PRN #10 tab 11/07/13 [Rx Last Taken Unknown] methocarbamol 500 mg PO Q6H PRN #40 tab 10/03/21 [Rx Last Taken Unknown] Allergy/AdvReac Type Severity Reaction Status Date / Time No Known Allergies Allergy Verified 02/20/22 07:29 Social History Smoking Status: Never smoker ROS ROS ED Constitutional Constitutional ED: Denies chills or sweats Eyes Eyes: Denies blurry vision or change in vision ENT ENT ED: Denies rhinorrhea or sore throat Cardiovascular Cardiovascular: Denies chest pain or palpitations Respiratory/Chest Respiratory/Chest: Reports dyspnea and dyspnea on exertion Gastrointestinal Gastrointestinal: Denies abdominal pain, diarrhea, nausea or vomiting Genitourinary Genitourinary ED: Denies dysuria Musculoskeletal Musculoskeletal: Denies arthralgias, back pain, myalgias or neck pain Integumentary Denies rash Neurologic Neurologic: Denies headache(s), paresthesias or weakness Psychiatric Psychiatric: Denies anxiety or depression EXAM Physical Exam Const Vital Signs: 02/20/22 07:30 02/20/22 07:34 02/20/22 08:06 Temperature 96.7 F L 96.7 F L Temperature Source Temporal Temporal Pulse Rate 110 H 110 H Respiratory Rate 22 H 22 H Respiratory Effort Normal Respiratory Pattern Normal Blood Pressure 126/78 H 126/78 H Blood Pressure Mean 94 94 Pulse Ox 93 93 Oxygen Delivery Method Nasal Cannula Nasal Cannula Nasal Cannula Oxygen Flow Rate (L/min) 2 2 02/20/22 09:06 02/20/22 13:49 02/20/22 14:29 Temperature Temperature Source Pulse Rate 85 Respiratory Rate 18 Respiratory Effort Respiratory Pattern Blood Pressure 101/56 L 121/56 H Blood Pressure Mean 71 77 Pulse Ox 98 97 95 Oxygen Delivery Method Nasal Cannula Nasal Cannula Room Air Oxygen Flow Rate (L/min) 2 Positive well nourished General Appearance ED: MISHA HARTMANN Reports moist mucous membranes atraumatic Eyes PERRL and EOMs intact bilaterally Neck no lymphadenopathy and supple Resp normal respiratory effort and clear to auscultation bilaterally Cardio regular rhythm Rate: tachycardic GI non-tender Palpation: soft Back/Spine normal to inspection Neuro oriented x3 and CN's II-XII intact bilaterally Sensorium / Orientation: alert Motor Exam: strength 5/5 throughout Psych mental status grossly normal Skin Lesions: no lesions Rashes: no rashes MDM MDM MDM Narrative Medical decision making narrative: Patient evaluated for more dyspnea than usual. She states she was on a Z-Alex initially improved but still feels short of breath. Although she is stating she requires more oxygen she has been monitored here for hours and her pulse ox is 97% on her baseline O2. Given her complaint I did do a septic work-up. Her lactic acid is normal. Coagulation studies are normal. She has a slightly elevated white blood cell count at 12.8. She has never had an actual documented fever. Urinalysis is negative for infection. Her chest x-ray on my interpretation showed right lower lobe opacities. COVID-19 testing negative. I did obtain a D- dimer and this was elevated at greater than (more content not included)... Normal [facility] Lactic Acidon 02-20-2022 Lactate [Moles/Vol] 0.7 mmol/L Normal 0.4-1.9 [facility] Comment on above: Order Comment: Y Performed By: #### M 100.2200 #### [facility] [address] [place], [address] Partial Thromboplast Timeon 02-20-2022 aPTT Coag (Bld) [Time] 32.5 s Normal 24.1-36.2 [facility] Comment on above: Performed By: #### L 300.8000, L300.4310, L300.3900 #### [facility] [address] [place], [address] Prothrombin Time w/INRon INR Coag (PPP) [Relative time] 1.1 {INR} Normal [facility] Comment on above: Performed By: #### L 300.8000, L300.4310, L300.3900 #### [facility] [address] [place], [address] PT Coag (PPP) [Time] 13.1 s Normal 11.7-14.9 [facility] Comment on above: Performed By: #### L 300.8000, L300.4310, L300.3900 #### [facility] [address] [place], [address] Urinalysis, Completeon 02-20 BACTERIA 0 SEEN Normal None Seen [facility] Comment on above: Order Comment: COLLE CTOR TO SPECIFY Performed By: #### L 400.0001 #### [facility] [address] [place], [address] EPI,SQUAMOUS 0 SEEN Normal 5-10 [facility] Comment on above: Order Comment: COLLE CTOR TO SPECIFY Performed By: #### L 400.0001 #### [facility] [address] [place], [address] Mucus Ql (Urine sed) 0 SEEN Normal [facility] Comment on above: Order Comment: COLLE CTOR TO SPECIFY Performed By: #### L 400.0001 #### [facility] [address] [place], [address] RBC 0 SEEN Normal 0-5 [facility] Comment on above: Order Comment: COLLE CTOR TO SPECIFY Performed By: #### L 400.0001 #### [facility] [address] [place], [address] WBC 0 SEEN Normal 0-5 [facility] Comment on above: Order Comment: COLLE CTOR TO SPECIFY Performed By: #### L 400.0001 #### [facility] [address] [place], [address] Emergency Department Summary on 10-03-2021 Emergency Department Summary [facility] Medical Records Department [address] [place] [address] Emergency Department Summary 10/03/21 MR#: [id number] Acct: [id number] Name: CADENCE WRIGHT Rep #: [id number] : 1950 71 From: Jamel Mclaughlin DO PCP: ERIC Hooper Status:REG ER Location: ED HPI History of Present Illness Chief Complaint: Chest Other Narrative Narrative: Patient Emory a 71-year-old female who presents to the ER with right-sided chest discomfort. She states that 1 week ago she was helping to pull her up in the recliner and when she did this she felt a pop. She states that she felt this in her right lower rib cage region. She states since that time if she goes to lift pull push or even cough or take a deep breath then she notices pain. She states there is been no rash or bruising to the area but has been persistent for a week and she is worried about broken ribs and therefore comes in for evaluation. [facility] Medical History COPD (chronic obstructive pulmonary disease) Home Medications albuterol sulfate [Proair Hfa] 2 puff INHALATION Q6H PRN PRN 10/31/13 [History Last Taken 11/07/13 04:30] cephalexin 500 mg PO Q8 10/31/13 [History Last Taken Unknown] mometasone [Asmanex 220 mcg Twisthaler] 220 mcg INHALATION BID 10/31/13 [History Last Taken 11/07/13 04:30] oxycodone-acetaminop hen 1 - 2 tab PO Q4H PRN PRN #10 tab 11/07/13 [Rx Last Taken Unknown] methocarbamol 500 mg PO Q6H PRN #40 tab 10/03/21 [Rx Last Taken Unknown] Allergy/AdvReac Type Severity Reaction Status Date / Time No Known Allergies Allergy Verified 10/31/13 14:51 Social History Smoking Status: Never smoker ROS ROS ED Constitutional Constitutional ED: Denies chills or fever(s) ENT ENT ED: Denies sore throat Cardiovascular Cardiovascular: Reports chest pain Respiratory/Chest Respiratory/Chest: Denies cough or dyspnea Gastrointestinal Gastrointestinal: Denies abdominal pain, diarrhea, nausea or vomiting Genitourinary Genitourinary ED: Denies dysuria Musculoskeletal Musculoskeletal: Denies back pain or myalgias Integumentary Denies abscess or rash Neurologic Neurologic: Denies headache(s) Hematologic/Lymphati c Hematologic/Lymphati c: Denies easy bleeding or easy bruising EXAM Physical Exam Const Vital Signs: 10/03/21 08:59 10/03/21 09:10 Temperature 97.9 F Temperature Source Temporal Pulse Rate 79 Respiratory Rate 16 Respiratory Effort Normal Non-Labored Respiratory Pattern Normal Blood Pressure 131/66 H Blood Pressure Mean 87 Pulse Ox 98 Oxygen Delivery Method Room Air Positive well nourished and well developed General Appearance ED: well developed Eyes PERRL and EOMs intact bilaterally Neck supple Chest Wall Chest Narrative: There is pain with palpation to the right anterior chest wall rib regions 8-10 without bony deformity or crepitance noted. Resp normal respiratory effort and clear to auscultation bilaterally Cardio regular rate and regular rhythm Rate: other Other Details: Radial pulses are plus 2 out of 4 bilaterally are equal and some GI normal to inspection, nondistended, normoactive bowel sounds, non-tender, non-distended and no masses GI Narrative: No voluntary guarding or rigidity no pulsatile mass Auscultation: normoactive bowel sounds Palpation: soft Extremity normal to inspection Extremity Narrative: No asymmetric edema no pitting edema negative Homans' sign bilaterally Neuro oriented x3 and CN's II-XII intact bilaterally Sensorium / Orientation: alert Motor Exam: strength 5/5 throughout Psych mental status grossly normal Skin no rashes or lesions noted MDM MDM MDM Narrative Medical decision making narrative: Patient presented to the ER with chest wall pain that occurred after a lifting motion. It was very reproducible on exam and patient did not have any soft tissue skin changes to suggest infection. With the pop there was concern for fractured ribs so an x-ray was obtained. X-ray revealed no acute fracture or pneumothorax but did question a lung nodule. I informed patient of this nodule and we discussed obtaining a CT scan today. 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 Therefore patient will be diagnosed with intercostal muscle strain and placed on muscle relaxers to help with symptoms and is otherwise safe for discharge Radiography Diagnostic Testing: Clinical Impression(s) from Imaging Studies Ribs w/Chest X-Ray 10/03/21 09:20 IMPRESSION: RIBS: Normal x-ray examination of the ribs. CHEST: Possible 1 cm nodule in the lateral midportio (more content not included)... Normal [facility] Ribs Uni Min 3V w/PA Cheston 10-03-2021 Ribs Uni Min 3V w/PA Chest [facility] Imaging Services [address] [place] [address] Ribs Uni Min 3V w/PA Chest MR#: [id number] Acct: [id number] Name: CADENCE WRIGHT Rep #: [id number] : [id number] F 71 From: Saurabh abebe MD PCP: ERIC Hooper Status: PRE ER Study: Ribs Uni Min 3V w/PA Chest Date of Exam: 10/03 Exam# [id number] Ordering Dr: Jamel Mclaughlin DO STUDY: X-RAY - UNILATERAL RIBS ( RIGHT ) WITH CHEST REASON FOR EXAM: Female, 71 years old. Pain TECHNIQUE - RIBS: 4 view(s) of the ribs. TECHNIQUE - CHEST: Single PA view of the chest. COMPARISON: None. FINDINGS - RIBS: Normal visualized ribs without a demonstrated fracture. FINDINGS - CHEST: There is hyperinflation of the lungs consistent with chronic obstructive lung disease (COPD). Possible 1 cm nodule in the lateral mid aspect of the right lung. There is no demonstrated pleural abnormality. Normal size heart. Calcified bilateral hilar lymph nodes. Normal visualized pulmonary arteries. There is atherosclerotic calcification of the aortic arch with tortuosity. Normal visualized thoracic spine. Normal visualized ribs, clavicles, and shoulders. There is no demonstrated abnormality of the visualized soft tissue structures of the upper abdomen. RAD/Ribs Uni Min 3V w/PA Chest IMPRESSION: RIBS: Normal x-ray examination of the ribs. CHEST: Possible 1 cm nodule in the lateral midportion of the right lung. Correlation with CT scan is recommended. Electronically Signed: Saurabh Wallace MD at 9:46 EST , Service support , CC: ERIC Martin; Jamel Mclaughlin DO Dietician: Signed Normal [facility] Laboratory - Hematology and Cell countson 09-20-2020 Basophils (Bld) [#/Vol] 0.087 10*3/uL Normal 0 - 200 {cells/uL} [employer] Basophils/100 WBC (Bld) 1.3 % Normal [employer] Eosinophils (Bld) [#/Vol] 0.228 10*3/uL Normal 15 - 500 {cells/uL} [employer] Eosinophils/100 WBC (Bld) 3.4 % Normal [employer] Erythrocyte distribution width (RBC) [Ratio] 13.3 % Normal 11.0 - 15.0 % [employer] Hematocrit (Bld) [Volume fraction] 46.5 % Abnormal 35.0 - 45.0 % [employer] Hemoglobin (Bld) [Mass/Vol] 15.3 g/dL Normal 11.7 - 15.5 g/dL [employer] Lymphocytes (Bld) [#/Vol] 1.554 10*3/uL Normal 850 - 3900 {cells/uL} [employer] Lymphocytes/100 WBC (Bld) 23.2 % Normal [employer] MCH (RBC) [Entitic mass] 29.4 pg Normal 27.0 - 33.0 pg [facility] [facility].; [employer] [facility], [facility]. MCHC (RBC) [Mass/Vol] 32.9 g/dL Normal 32.0 - 36.0 g/dL [facility].; [employer], [employer] MCV (RBC) [Entitic vol] 89.3 fL Normal 80.0 - 100.0 fL [facility].; [employer] [facility], [facility]. Monocytes (Bld) [#/Vol] 0.657 10*3/uL Normal 200 - 950 {cells/uL} [facility].; [employer], [employer] Monocytes/100 WBC (Bld) 9.8 % Normal [facility].; [employer], [employer] Neutrophils (Bld) [#/Vol] 4.174 10*3/uL Normal 1500 - 7800 {cells/uL} [facility].; [employer], [employer] Neutrophils/100 WBC (Bld) 62.3 % Normal [facility] [employer].; [employer], [employer] Platelet mean volume (Bld) [Entitic vol] 11.8 fL Normal 7.5 - 12.5 fL [facility].; [employer], [facility]. Platelets (Bld) [#/Vol] 236 10*3/uL Normal 140 - 400 [facility].; [employer], [employer] RBC (Bld) [#/Vol] 5.21 10*6/uL Abnormal 3.80 - 5.1 0 {Million/uL} [facility].; [employer], [employer] WBC (Bld) [#/Vol] 6.7 10*3/uL Normal 3.8 - 10.8 [employer].; [employer], [employer] Laboratory - Chemistry and C hemistry - challengeon 08-19-2020 Bilirubin Ql (U) Negative Normal [facility] [employer] Ketones Ql (U) Negative Normal [facility].; [employer], [employer] pH (U) 6.0 [pH] Normal [facility].; [facility] Specific gravity (U) [Rel density] 1.020 Normal [facility]; [facility] Urobilinogen Qn (U) 0.2 mg/dL Normal [facility].; [facility] [employer] Laboratory - Hematology and Cell countson 08-19-2020 Basophils (Bld) [#/Vol] 0.029 10*3/uL Normal 0 - 200 {cells/uL} [facility].; [facility] Basophils/100 WBC (Bld) 0.8 % Normal [facility]; [facility] Eosinophils (Bld) [#/Vol] 0.04 10*3/uL Normal 15 - 500 {cells/uL} [facility].; [facility], [facility] Eosinophils/100 WBC (Bld) 1.1 % Normal [facility]; [facility] Erythrocyte distribution width (RBC) [Ratio] 12.9 % Normal 11.0 - 15.0 % [facility]; [facility] Hematocrit (Bld) [Volume fraction] 45.7 % Abnormal 35.0 - 45.0 % [facility]; [facility] Hemoglobin (Bld) [Mass/Vol] 15.9 g/dL Abnormal 11.7 - 15.5 g/dL [facility]; [facility] Hemoglobin Ql (U) Trace, intact Abnormal [facility]; [facility] Lymphocytes (Bld) [#/Vol] 1.069 10*3/uL Normal 850 - 3900 {cells/uL} [facility].; [facility] Lymphocytes/100 WBC (Bld) 29.7 % Normal [facility]; [facility] MCH (RBC) [Entitic mass] 29.7 pg Normal 27.0 - 33.0 pg [facility]; [facility], [facility] MCHC (RBC) [Mass/Vol] 34.8 g/dL Normal 32.0 - 36.0 g/dL [facility].; [employer], [employer] MCV (RBC) [Entitic vol] 85.3 fL Normal 80.0 - 100.0 fL [employer].; [employer], [employer] Monocytes (Bld) [#/Vol] 0.58 10*3/uL Normal 200 - 950 {cells/uL} [place] [employer] Monocytes/100 WBC (Bld) 16.1 % Normal [place] [employer] [facility].; [employer], [employer] Neutrophils (Bld) [#/Vol] 1.883 10*3/uL Normal 1500 - 7800 {cells/uL} [employer].; [employer], [employer] Neutrophils/100 WBC (Bld) 52.3 % Normal [place] [employer] [facility].; [employer] Platelet mean volume (Bld) [Entitic vol] 12.2 fL Normal 7.5 - 12.5 fL [employer] [facility].; [employer] Platelets (Bld) [#/Vol] 171 10*3/uL Normal 140 - 400 [employer] [facility].; [employer], [employer] RBC (Bld) [#/Vol] 5.36 10*6/uL Abnormal 3.80 - 5.1 0 {Million/uL} [employer].; [employer] WBC (Bld) [#/Vol] 3.6 10*3/uL Abnormal 3.8 - 10.8 [employer].; [employer], [employer] Laboratory - Specimen inform ationon 08-19-2020 Appearance (U) clear Normal [facility] [employer]. Color (U) yellow Normal [employer].; [employer], [employer] Laboratory - Urinalysison Glucose Test strip (U) [Mass/Vol] Negative Normal [employer].; [employer] Leukocyte esterase Test strip Ql (U) Negative Normal [employer].; [employer], [employer] Nitrite Ql (U) Negative Normal [facility] [employer].; [facility], Inc. Protein Ql (U) Negative Normal [facility]; [facility] No Panel Informationon 08-19 CULTURE, URINE, ROUTINE SEE NOTE Normal [facility]; [facility] SED RATE BY MODIFIED WESTERGREN 6 mm/h Normal [facility]; [facility], [facility] Laboratory - Chemistry and C hemistry - challengeon 02-17-2014 Albumin [Mass/Vol] 4.6 g/dL Normal 3.6 - 5.1 g/dL [facility]; [facility], [facility] Albumin/Globulin [Mass ratio] 2.0 {ratio} Normal 1.0 - 2.5 [facility]; [facility], [facility]. ALP [Catalytic activity/Vol] 72 U/L Normal 33 - 130 U/L [facility].; [facility], [facility]. ALT [Catalytic activity/Vol] 16 U/L Normal 6 - 29 U/L [facility].; [facility], [facility]. AST [Catalytic activity/Vol] 18 U/L Normal 10 - 35 U/L [facility].; [facility], [facility]. Bilirubin [Mass/Vol] 0.8 mg/dL Normal 0.2 - 1.2 mg/dL [facility].; [facility], [facility]. Calcium [Mass/Vol] 9.9 mg/dL Normal 8.6 - 10. 4 mg/dL [facility].; [facility], [facility]. Chloride [Moles/Vol] 105 mmol/L Normal 98 - 110 mmol/L [facility].; [facility], [facility]. Cholesterol [Mass/Vol] 234 mg/dL Abnormal 125 - 200 mg/dL [facility].; [facility], [facility]. Cholesterol in HDL [Mass/Vol] 66 mg/dL Normal [facility].; [facility], [facility]. Cholesterol in LDL [Mass/Vol] 145 mg/dL Abnormal [facility].; [facility], [facility]. Cholesterol non HDL [Mass/Vol] 168 mg/dL Abnormal [facility] [employer] [facility].; [facility], [facility]. Cholesterol.total/C holesterol in HDL [Mass ratio] 3.5 {ratio} Normal [facility].; [facility], [facility] CO2 [Moles/Vol] 28 mmol/L Normal 19 - 30 mmol/L [facility].; [facility], [facility]. Creatinine [Mass/Vol] 0.83 mg/dL Normal 0.50 - 0.99 mg/dL [facility].; [facility], [facility]. GFR/1.73 sq M.predicted among blacks MDRD (S/P/Bld) [Vol rate/Area] 88 {ML/MIN/1.73M2} Normal [facility].; [facility], [facility]. GFR/1.73 sq M.predicted MDRD (S/P/Bld) [Vol rate/Area] 76 {ML/MIN/1.73M2} Normal [facility], [facility].; [facility], [facility]. Globulin (S) [Mass/Vol] 2.3 g/dL Normal 1.9 - 3.7 g/dL [facility].; [facility], [facility]. Glucose [Mass/Vol] 94 mg/dL Normal 65 - 99 mg/dL [facility].; [facility], [facility]. Potassium [Moles/Vol] 3.9 mmol/L Normal 3.5 - 5.3 mmol/L [facility].; [facility], [facility]. Protein [Mass/Vol] 6.9 g/dL Normal 6.1 - 8.1 g/dL [facility], [facility].; [facility], [facility]. Sodium [Moles/Vol] 142 mmol/L Normal 135 - 146 mmol/L [facility], [facility].; [facility], [facility]. Triglyceride [Mass/Vol] 115 mg/dL Normal [facility], [facility].; [facility], [facility]. TSH Qn 3.39 m[IU]/L Normal 0.40 - 4.50 {mIU/L} [facility], [facility].; [facility], [facility]. Urea nitrogen [Mass/Vol] 15 mg/dL Normal 7 - 25 mg/dL [facility], [facility].; [facility], [facility]. Urea nitrogen/Creatinine [Mass ratio] 18.1 mg/mg Normal 6 - 22 [facility] [employer] [facility].; [place] [employer] [facility] Laboratory - Hematology and Cell countson 02-17-2014 Basophils (Bld) [#/Vol] 40 {Cells}/uL Normal 0 - 200 {Cells}/uL [facility].; [employer] [facility], [facility] Basophils/100 WBC (Bld) 1 % Normal [facility] [employer] [facility].; [facility] Eosinophils (Bld) [#/Vol] 150 {Cells}/uL Normal 15 - 500 {Cells}/uL [facility].; [place] [employer] [facility] Eosinophils/100 WBC (Bld) 3 % Normal [facility]; [employer], [facility] Erythrocyte distribution width (RBC) [Ratio] 13.5 % Normal 11.0 - 15.0 % [facility].; [employer], [facility] Hematocrit (Bld) [Volume fraction] 46.7 % Abnormal 35.0 - 45.0 % [facility].; [employer], [facility] Hemoglobin (Bld) [Mass/Vol] 15.2 g/dL Normal 11.7 - 15.5 g/dL [facility].; [employer] [facility], [facility]. Lymphocytes (Bld) [#/Vol] 1780 {Cells}/uL Normal 850 - 3900 {Cells}/uL [facility].; [employer], [facility] Lymphocytes/100 WBC (Bld) 34 % Normal [facility].; [employer], [facility]. MCH (RBC) [Entitic mass] 29.4 pg Normal 27.0 - 33.0 PG [place] [employer] [facility].; [employer], [facility]. MCHC (RBC) [Mass/Vol] 32.5 g/dL Normal 32.0 - 36.0 g/dL [employer] [facility].; [employer], [facility]. MCV (RBC) [Entitic vol] 90.6 fL Normal 80.0 - 100.0 fL [employer] [facility].; [employer], [facility] Monocytes (Bld) [#/Vol] 450 {Cells}/uL Normal 200 - 950 {Cells}/uL [facility].; [facility]. Monocytes/100 WBC (Bld) 8 % Normal [facility].; [facility]. Neutrophils (Bld) [#/Vol] 2870 {Cells}/uL Normal 1500 - 7800 {Cells}/uL [facility], [facility].; [facility], [facility]. Neutrophils/100 WBC (Bld) 54 % Normal [facility].; [facility] Services[facility] [employer] [facility]. Platelets (Bld) [#/Vol] 193 10*3/uL Normal 140 - 400 10*3/uL [facility] [employer] [facility].; [facility], [facility]. RBC (Bld) [#/Vol] 5.16 10*6/uL Abnormal 3.80 - 5.1 0 10*6/uL [facility] [employer].; [facility], [facility]. WBC (Bld) [#/Vol] 5.3 10*3/uL Normal 3.8 - 10.8 10*3/uL [facility].; [facility] [employer]. Laboratory - Chemistry and C hemistry - challengeon 03-19-2013 Albumin [Mass/Vol] 4.5 g/dL Normal 3.20 - 4. 80 g/dL [facility].; [employer] [facility], [facility]. Albumin [Mass/Vol] 1.7 g/dL Abnormal 0.90 - 1.60 [facility].; [employer] [facility], [facility]. ALP [Catalytic activity/Vol] 59 U/L Normal 38 - 126 U/L [facility] Services[facility].; [employer] [facility], [facility]. ALT [Catalytic activity/Vol] 36 U/L Normal 10 - 44 U/L [facility] Services[facility] [employer].; [facility], [facility]. AST [Catalytic activity/Vol] 42 U/L Abnormal 8 - 34 U/L [facility] Services[facility].; [employer] [facility], [facility]. Bilirubin [Mass/Vol] 0.9 mg/dL Normal 0.20 - 1.20 mg/dL [facility], [facility].; [facility], [facility]. Calcium [Mass/Vol] 9.6 mg/dL Normal 8.40 - 10 .60 mg/dL [facility] Services[facility].; [facility], [employer] Chloride [Moles/Vol] 101 mmol/L Normal 98 - 110 mmol/L [facility].; [facility], [facility]. Cholesterol [Mass/Vol] 215 mg/dL Abnormal 0 - 200 mg/dL [facility].; [facility], [facility]. Cholesterol in HDL [Mass or moles/Vol] 71 mg/dL Abnormal 40 - 60 mg/dL [facility].; [facility], [facility] Cholesterol in LDL [Mass/Vol] 133 mg/dL Abnormal 0 - 100 mg/dL [facility].; [facility], [facility]. Cholesterol.total/C holesterol in HDL [Mass ratio] 3.0 {ratio} Normal 0.0 - 5.0 [facility]; [facility], [facility] CO2 [Moles/Vol] 31.0 mmol/L Normal 22.0 - 32.0 meq/L [facility].; [facility], [facility] Comprehensive metabolic 2000 panel COMPREHENSIVE METABOLIC PANEL Normal [facility]; [facility], [facility] Creatinine [Mass/Vol] 0.8 mg/dL Normal 0.50 - 1.20 mg/dL [facility].; [facility], [facility]. Globulin (S) [Mass/Vol] 2.7 g/dL Normal 1.50 - 3.80 g/dL [facility].; [facility], [facility]. Glucose [Mass/Vol] 68 mg/dL Normal 60 - 100 mg/dL [facility].; [facility], [facility]. Lipid 1996 panel LIPID PROFILE Normal [facility].; [facility], [facility] Potassium [Moles/Vol] 4.4 mmol/L Normal 3.50 - 5.0 mmol/L [facility].; [facility], [facility] Protein [Mass/Vol] 7.2 g/dL Normal 6.0 - 8.5 0 g/dL [facility], [facility].; [facility], [facility]. Sodium [Moles/Vol] 140 mmol/L Normal 136 - 145 mmol/L [facility].; [facility], [facility]. Triglyceride [Mass/Vol] 53 mg/dL Normal 0 - 150 mg/dL [facility].; [facility], [facility] Urea nitrogen [Mass/Vol] 16 mg/dL Normal 8 - 22 mg/dL [facility].; [facility] Urea nitrogen/Creatinine [Mass ratio] 20 {ratio} Normal 0 - 30 {ratio} [facility].; [place] [employer] [facility], [facility] Vital Signs Date Time Vital Sign Value Performing Clinician Facility 02-22-2024 12:51-0400 Body height 156.21 cm Isamar Ni [facility].; [facility] 02-22-2024 12:51-0400 Body mass index (BMI) [Ratio] 22.68 kg/m2 [facility].; [facility], [facility]. 02-22-2024 12:51-0400 Body surface area Derived from formula 1.54 m2 [facility].; [facility]. 02-22-2024 12:51-0400 [facility].; [place] [employer] [facility], [facility] 02-22-2024 12:51-0400 Diastolic blood pressure 73 mm[Hg] Isamar Ni [facility].; [place] [employer] [facility], [facility]. Comment on above: Patient Position: Sitting; Cuff Location : Left Arm; Cuff Size: Standard 02-22-2024 12:51-0400 Heart rate 98 /min Isamar Ni [facility]; [facility], [facility]. Comment on above: Pattern: Regular 02-22-2024 12:51-0400 Inhaled oxygen concentration 21 % [facility].; [place] [employer] [facility], [facility]. Comment on above: Room air 02-22-2024 12:51-0400 SaO2% (BldA) [Mass fraction] 93 % [facility].; [place] [employer] [facility], [employer] 02-22-2024 12:51-0400 Systolic blood pressure 112 mm[Hg] Isamar Ni [facility].; [place] [employer] [facility]. Comment on above: Patient Position: Sitting; Cuff Location : Left Arm; Cuff Size: Standard 02-08-2024 08:44-0400 Body height 156.21 cm Linda Oanh Armenta PA-C Work Phone: [employer]; [employer] 02-08-2024 08:44-0400 Body mass index (BMI) [Ratio] 22.68 kg/m2 Linda J Armenta PA-C Work Phone: [employer] work; [employer]. 02-08-2024 08:44-0400 Body surface area Derived from formula 1.54 m2 Linda J Armenta PA-C Work Phone: [employer] work; [employer]. 02-08-2024 08:44-0400 Body weight 55.34 kg Linda J Armenta PA-C Work Phone: [employer] work; [employer]. 02-08-2024 08:44-0400 Diastolic blood pressure 66 mm[Hg] Linda J Armenta PA-C Work Phone: [employer] work; [employer]. Comment on above: Patient Position: Sitting; Cuff Location : Left Arm; Cuff Size: Standard 02-08-2024 08:44-0400 Heart rate 101 /min Linda J Armenta PA-C Work Phone: [employer] work; [employer]. Comment on above: Pattern: Regular 02-08-2024 08:44-0400 Heart rate 98 /min Linda J Armenta PA-C Work Phone: [employer] work; [employer]. Comment on above: Pattern: Regular 02-08-2024 08:44-0400 Inhaled oxygen concentration 20 % Linda J Armenta PA-C Work Phone: [employer] work; [employer]. Comment on above: Room air 02-08-2024 08:44-0400 Inhaled oxygen concentration 21 % Linda Tylerer PA-C Work Phone: [employer].; [employer]. Comment on above: Room air 02-08-2024 08:44-0400 SaO2% (BldA) [Mass fraction] 90 % Linda Armenta PA-C Work Phone: [employer].; [employer] 02-08-2024 08:44-0400 Systolic blood pressure 119 mm[Hg] Linda Armenta PA-C Work Phone: [employer].; [employer]. Comment on above: Patient Position: Sitting; Cuff Location : Left Arm; Cuff Size: Standard 02-22-2022 10:43-0400 Body height 156.21 cm Ivette Martin PA-C Work Phone: [employer].; [employer] 02-22-2022 10:43-0400 Body mass index (BMI) [Ratio] 25.28 kg/m2 Ivette Martin PA-C Work Phone: [employer].; [employer] 02-22-2022 10:43-0400 Body surface area Derived from formula 1.61 m2 Ivette Martin PA-C Work Phone: [employer].; [employer] 02-22-2022 10:43-0400 Body temperature 99.7 [degF] Ivette Martin PA-C Work Phone: [employer].; [employer]. Comment on above: Method: Tympanic 02-22-2022 10:43-0400 Body weight 61.69 kg Ivette Martin PA-C Work Phone: [employer].; [employer] 02-22-2022 10:43-0400 Diastolic blood pressure 78 mm[Hg] Ivette Martin PA-C Work Phone: [employer].; [facility] Services[facility] [employer] [facility]. Comment on above: Patient Position: Sitting; Cuff Location : Left Arm; Cuff Size: Standard 02-22-2022 10:43-0400 Heart rate 105 /min Ivette Martin PA-C Work Phone: [facility]; [facility] Services[facility]. Comment on above: Pattern: Regular 02-22-2022 10:43-0400 Inhaled oxygen concentration 28 % Ivette Martin PA-C Work Phone: [facility] ServicesCamp[facility] [employer] [facility].; [facility] Services[facility] [employer] [facility]. Comment on above: 2L O2 02-22-2022 10:43-0400 Oxygen flow rate 2 L/min Ivette Martin PA-C Work Phone: [facility] ServicesCamp[facility] [employer] [facility]; [facility] Services[facility] [employer] [facility] 02-22-2022 10:43-0400 SaO2% (BldA) [Mass fraction] 94 % Ivette Martin PA-C Work Phone: [facility] ServicesCamp[facility] [employer] [facility]; [facility] ServicesCamp[facility] [employer] [facility] 02-22-2022 10:43-0400 Systolic blood pressure 139 mm[Hg] Ivette Martin PA-C Work Phone: [facility] ServicesCamp[facility] [employer] [facility]; [facility] ServicesDescribeMe. Comment on above: Patient Position: Sitting; Cuff Location : Left Arm; Cuff Size: Standard 02-14-2022 10:33-0400 Body height 156.21 cm Yary Talbert LPN [facility].; [facility] 02-14-2022 10:33-0400 Body mass index (BMI) [Ratio] 26.21 kg/m2 Yary Talbert LPN [facility].; [facility] 02-14-2022 10:33-0400 Body surface area Derived from formula 1.64 m2 Yayr Talbert LPN [facility].; [facility] Services[facility] [employer] [facility]. 02-14-2022 10:33-0400 Body temperature 98.7 [degF] Yary Talbert LPN [facility]; [facility] ServicesCamp[facility] [employer] Comment on above: Method: Tympanic 02-14-2022 10:33-0400 Body weight 63.96 kg Yary Talbert LPN [facility], [facility].; [facility]. 02-14-2022 10:33-0400 Diastolic blood pressure 68 mm[Hg] Yary Talbert LPN [facility].; [employer]. Comment on above: Patient Position: Sitting; Cuff Location : Left Arm; Cuff Size: Standard 02-14-2022 10:33-0400 Heart rate 94 /min Yary Talbert LPN [facility], [facility].; [place] [employer] [facility], [employer] Comment on above: Pattern: Regular 02-14-2022 10:33-0400 Inhaled oxygen concentration 20 % Yary Talbert LPN [facility].; [place] [employer] [facility], [facility]. Comment on above: Room air 02-14-2022 10:33-0400 Inhaled oxygen concentration 21 % Yary Talbert LPN [facility], [facility].; [place] [employer] [facility], [employer] Comment on above: Room air 02-14-2022 10:33-0400 SaO2% (BldA) [Mass fraction] 93 % Yary Talbert LPN [facility].; [facility], [facility]. 02-14-2022 10:33-0400 Systolic blood pressure 124 mm[Hg] Yary Talbert LPN [facility].; [employer] [facility], [employer] Comment on above: Patient Position: Sitting; Cuff Location : Left Arm; Cuff Size: Standard 10-19-2021 09:06-0500 Body height 156.21 cm Char Barnett LPN [facility], [facility].; [place] [employer] [facility] Center[facility] [employer] [facility]. 10-19-2021 09:06-0500 Body mass index (BMI) [Ratio] 25.28 kg/m2 Char [facility]ett [facility], [facility].; [place] [employer] [facility], [facility]. 10-19-2021 09:06-0500 Body surface area Derived from formula 1.61 m2 Char Barnett LPN [facility], [facility].; [employer] 10-19-2021 09:06-0500 Body temperature 98.4 [degF] Char Barnett LPN [facility].; [facility], [facility]. Comment on above: Method: Tympanic 10-19-2021 09:06-0500 Body weight 61.69 kg [facility].; [facility], Inc[facility] 10-19-2021 09:06-0500 Diastolic blood pressure 82 mm[Hg] Char Barnett [facility], [facility].; [place] [employer] [facility], Inc. Comment on above: Patient Position: Sitting; Cuff Location : Left Arm; Cuff Size: Standard 10-19-2021 09:06-0500 Heart rate 80 /min Char Barnett [facility], [facility].; [place] [employer] [facility], Inc[employer] Comment on above: Pattern: Regular 10-19-2021 09:06-0500 Inhaled oxygen concentration 20 % Char Barnett [facility].; [place] [employer] [facility], Inc[employer] Comment on above: Room air 10-19-2021 09:06-0500 Inhaled oxygen concentration 21 % [facility].; [place] [employer] [facility], [employer] Comment on above: Room air 10-19-2021 09:06-0500 SaO2% (BldA) [Mass fraction] 93 % Char Barnett [facility].; [place] [employer] [facility], [facility]. 10-19-2021 09:06-0500 Systolic blood pressure 122 mm[Hg] Char Barnett LPN [facility], [facility].; [place] [employer] [facility], Inc[employer] Comment on above: Patient Position: Sitting; Cuff Location : Left Arm; Cuff Size: Standard 09-29-2021 09:07-0500 Body height 156.21 cm Hailey Buchanan LPN [facility].; [facility]. 09-29-2021 09:07-0500 Body mass index (BMI) [Ratio] 25.28 kg/m2 Haileyerin Buchanan [facility], [facility].; [facility], [facility]. 09-29-2021 09:07-0500 Body surface area Derived from formula 1.61 m2 Hailey Buchanan LPN [facility], [facility].; [facility], [facility]. 09-29-2021 09:07-0500 Body weight 61.69 kg Hailey Buchanan LPN [facility], [facility].; [place] [employer] [facility], Inc[employer] 09-29-2021 09:07-0500 Diastolic blood pressure 73 mm[Hg] Hailey Buchanan LPN [facility], [facility].; [place] [employer] Comment on above: Patient Position: Sitting; Cuff Location : Left Arm; Cuff Size: Standard 09-29-2021 09:07-0500 Heart rate 69 /min Hailey Buchanan LPN [facility], [facility].; [place] [employer] [facility], Inc[employer] Comment on above: Pattern: Regular 09-29-2021 09:07-0500 Systolic blood pressure 124 mm[Hg] Hailey Buchanan [facility], [facility].; [place] [employer] Comment on above: Patient Position: Sitting; Cuff Location : Left Arm; Cuff Size: Standard 08-19-2020 13:36-0400 Body height 156.21 cm Yary Talbert LPN [facility], [facility].; [facility], [employer] 08-19-2020 13:36-0400 Body mass index (BMI) [Ratio] 25.47 kg/m2 Yary Talbert LPN [facility], [facility].; [place] [employer] 08-19-2020 13:36-0400 Body surface area Derived from formula 1.62 m2 Yary Talbert LPN [facility], [facility].; [employer] 08-19-2020 13:36-0400 Body temperature 100 [degF] Yary Talbert LPN [facility], [facility].; [employer] Comment on above: Method: Tympanic 08-19-2020 13:36-0400 Body weight 62.14 kg Yary Talbert LPN [facility], [facility].; [employer] 08-19-2020 13:36-0400 Diastolic blood pressure 85 mm[Hg] Yary Talbert LPN [facility], [facility].; [employer] Comment on above: Patient Position: Sitting; Cuff Location : Left Arm; Cuff Size: Standard 08-19-2020 13:36-0400 Heart rate 57 /min Yary Talbert LPN [facility], [facility].; [employer], [employer] Comment on above: Pattern: Regular 08-19-2020 13:36-0400 Systolic blood pressure 128 mm[Hg] Yary Talbert LPN [place] [employer]. Comment on above: Patient Position: Sitting; Cuff Location : Left Arm; Cuff Size: Standard 01-03-2019 06:57-0500 Body height 156.21 cm Ivette Martin PA-C Work Phone: [employer] work; [employer]. 01-03-2019 06:57-0500 Body mass index (BMI) [Ratio] 24.72 kg/m2 Ivette Martin PA-C Work Phone: [employer] work; [employer]. 01-03-2019 06:57-0500 Body surface area Derived from formula 1.6 m2 Ivette Martin PA-C Work Phone: [employer]; [employer]. 01-03-2019 06:57-0500 Body temperature 97.4 [degF] Ivette Martin PA-C Work Phone: [employer]; [employer]. Comment on above: Method: Tympanic 01-03-2019 06:57-0500 Body weight 60.33 kg Ivette Martin PA-C Work Phone: [employer]; [employer]. 01-03-2019 06:57-0500 Diastolic blood pressure 66 mm[Hg] Ivette Martin PA-C Work Phone: [employer]; [employer]. Comment on above: Patient Position: Sitting; Cuff Location : Left Arm; Cuff Size: Standard 01-03-2019 06:57-0500 Heart rate 76 /min Ivette Martin PA-C Work Phone: [employer]; [employer] Comment on above: Pattern: Regular 01-03-2019 06:57-0500 Inhaled oxygen concentration 20 % Ivette Martin PA-C Work Phone: [employer]. Comment on above: Room air 01-03-2019 06:57-0500 Inhaled oxygen concentration 21 % Ivette Martin PA-C Work Phone: [facility] ServicesDescribeMe.; [employer]. Comment on above: Room air 01-03-2019 06:57-0500 SaO2% (BldA) [Mass fraction] 94 % Ivette Martin PA-C Work Phone: [place] [employer]. 01-03-2019 06:57-0500 Systolic blood pressure 121 mm[Hg] Ivette Martin PA-C Work Phone: [place] [employer].; [employer]. Comment on above: Patient Position: Sitting; Cuff Location : Left Arm; Cuff Size: Standard 12-24-2018 08:14-0500 Body height 156.21 cm Ariella Saundersuckey [employer] [facility], [employer]. 12-24-2018 08:14-0500 Body mass index (BMI) [Ratio] 24.91 kg/m2 Jazmyn Absecon [facility], [employer]. 12-24-2018 08:14-0500 Body surface area Derived from formula 1.6 m2 Jazmyn Absecon [employer] [place] [employer] [facility], Inc.; [employer]. 12-24-2018 08:14-0500 Body weight 60.78 kg Jazmyn Kvng [employer] [place] [employer] [facility], [employer]. 12-24-2018 08:14-0500 Diastolic blood pressure 65 mm[Hg] JazmynDomi Calderon [facility] [employer] [facility], [employer]. Comment on above: Patient Position: Sitting; Cuff Location : Left Arm; Cuff Size: Large 12-24-2018 08:14-0500 Heart rate 101 /min Ariella Calderon [employer] [place] [employer] [facility], [employer]. Comment on above: Pattern: Regular 12-24-2018 08:14-0500 Systolic blood pressure 128 mm[Hg] Ariella Calderon CLEMENT [facility], [facility].; [employer], [employer] Comment on above: Patient Position: Sitting; Cuff Location : Left Arm; Cuff Size: Large 05-28-2015 16:00-0400 Body height 156.21 cm Ada Ra Campos LPN [facility], [facility].; [employer] 05-28-2015 16:00-0400 Body mass index (BMI) [Ratio] 30.11 kg/m2 Ada Campos [employer] [facility], [facility].; [employer] 05-28-2015 [id number] Body surface area Derived from formula 1.74 m2 Ada Campos LPN [employer] [facility], Inc.; [employer], [employer] 05-28-2015 [id number]:[id number] Body temperature 99.1 [degF] Ada Campos [facility], Inc.; [employer], [employer] Comment on above: Method: Tympanic 05-28-2015 [id number]:[id number] Body weight 73.48 kg Ada Campos LPN [place] [employer] [facility], Inc.; [employer], [employer] 05-28-2015 16:00-0400 Diastolic blood pressure 76 mm[Hg] Ada Campos [facility], Inc.; [employer], [employer] Comment on above: Patient Position: Sitting; Cuff Location : Left Arm; Cuff Size: Standard 05-28-2015 16:00-0400 Heart rate 89 /min Ada Campos LPN [facility], [facility].; [employer], [employer] Comment on above: Pattern: Regular 05-28-2015 16:00-0400 Inhaled oxygen concentration 20 % Ada Campos LPN [employer] [facility], Inc.; [employer], [employer] Comment on above: Room air 05-28-2015 16:00-0400 Inhaled oxygen concentration 21 % Ada Campos LPN [place] [employer] [facility], Inc.; [employer], [employer] Comment on above: Room air 05-28-2015 16:00-0400 SaO2% (BldA) [Mass fraction] 94 % Ada Campos [facility], [employer] 05-28-2015 16:00-0400 Systolic blood pressure 122 mm[Hg] Ada Ra Campos [facility].; [employer]. Comment on above: Patient Position: Sitting; Cuff Location : Left Arm; Cuff Size: Standard 12-04-2014 09:06-0500 Body height 156.21 cm Ivette Martin PA-C Work Phone: [employer]. 12-04-2014 09:06-0500 Body mass index (BMI) [Ratio] 30.86 kg/m2 Ivette Martin PA-C Work Phone: [employer] 12-04-2014 09:06-0500 Body surface area Derived from formula 1.76 m2 Ivette Martin PA-C Work Phone: [employer].; [employer]. 12-04-2014 09:06-0500 Body weight 75.3 kg Ivette Martin PA-C Work Phone: [employer].; [employer]. 12-04-2014 09:06-0500 Diastolic blood pressure 67 mm[Hg] Ivette Martin PA-C Work Phone: [employer].; [employer]. Comment on above: Patient Position: Sitting; Cuff Location : Right Arm; Cuff Size: Large 12-04-2014 09:06-0500 Heart rate 80 /min Ivette Martin PA-C Work Phone: [employer].; [employer]. Comment on above: Pattern: Regular 12-04-2014 09:06-0500 Inhaled oxygen concentration 20 % Ivette Martin PA-C Work Phone: [employer]. Comment on above: Room air 12-04-2014 09:06-0500 Inhaled oxygen concentration 21 % Ivette Martin PA-C Work Phone: [employer].; [employer]. Comment on above: Room air 12-04-2014 09:06-0500 SaO2% (BldA) [Mass fraction] 95 % Ivette Martin PA-C Work Phone: [employer].; [employer]. 12-04-2014 09:06-0500 Systolic blood pressure 127 mm[Hg] Ivette Martin PA-C Work Phone: [employer]. Comment on above: Patient Position: Sitting; Cuff Location : Right Arm; Cuff Size: Large 11-10-2014 10:57-0500 Body temperature 100.6 [degF] Neilee L Vess [employer]. Comment on above: Method: Oral 11-10-2014 10:57-0500 Body weight 75.3 kg Neilee L Vess [employer].; [employer]. 11-10-2014 10:57-0500 Diastolic blood pressure 67 mm[Hg] Neilee L Vess [employer]. Comment on above: Patient Position: Sitting; Cuff Location : Left Arm; Cuff Size: Standard 11-10-2014 10:57-0500 Heart rate 87 /min Neilee L Vess [employer]. Comment on above: Pattern: Regular 11-10-2014 10:57-0500 Inhaled oxygen concentration 20 % Neilee L Vess [employer] TENDER [employer]. Comment on above: Room air 11-10-2014 10:57-0500 Inhaled oxygen concentration 21 % Neilee L Vess MILLED RUBBER TENDER [employer]. Comment on above: Room air 11-10-2014 10:57-0500 SaO2% (BldA) [Mass fraction] 93 % Neilee L Vess [employer] RUBB[employer]. 11-10-2014 10:57-0500 Systolic blood pressure 107 mm[Hg] Neilee L Vess [employer]ILLED RUBBER [employer]ENDER [employer]. Comment on above: Patient Position: Sitting; Cuff Location : Left Arm; Cuff Size: Standard 02-26-2014 11:17-0400 Body height 156.21 cm Yesica Harman RN [employer]. 02-26-2014 11:17-0400 Body mass index (BMI) [Ratio] 30.86 kg/m2 Yesica Harman RN [employer]. 02-26-2014 11:17-0400 Body surface area Derived from formula 1.76 m2 Yesica Harman RN [employer].; [employer]. 02-26-2014 11:17-0400 Body temperature 98 [degF] Yesica Harman RN [employer]. Comment on above: Method: Tympanic 02-26-2014 11:170400 Body weight 75.3 kg Yesica Harman RN [employer]. 02-26-2014 11:17-0400 Diastolic blood pressure 75 mm[Hg] Yesica Harman RN [employer]. Comment on above: Patient Position: Sitting; Cuff Location : Left Arm; Cuff Size: Standard 02-26-2014 11:17-0400 Heart rate 75 /min Yesica Harman RN [employer]. Comment on above: Pattern: Regular 02-26-2014 11:17-0400 Inhaled oxygen concentration 20 % Yesica Harman RN [employer]. Comment on above: Room air 02-26-2014 11:17-0400 Inhaled oxygen concentration 21 % Yesica Harman RN [employer]. Comment on above: Room air 02-26-2014 11:17-0400 SaO2% (BldA) [Mass fraction] 94 % Yesica Harman RN [employer]. 02-26-2014 11:17-0400 Systolic blood pressure 155 mm[Hg] Yesica Harman RN [employer]. Comment on above: Patient Position: Sitting; Cuff Location : Left Arm; Cuff Size: Standard 02-17-2014 08:51-0400 Body height 156.21 cm Ivette Martin PA-C Work Phone: [employer] 02-17-2014 08:51-0400 Body mass index (BMI) [Ratio] 31.23 kg/m2 Ivette Martin PA-C Work Phone: [employer] 02-17-2014 08:51-0400 Body surface area Derived from formula 1.76 m2 Ivette Martin PA-C Work Phone: [employer].; [employer] 02-17-2014 08:51-0400 Body weight 76.2 kg Ivette Martin PA-C Work Phone: [employer]. 02-17-2014 08:51-0400 Diastolic blood pressure 83 mm[Hg] Ivette Martin PA-C Work Phone: [employer]. Comment on above: Patient Position: Sitting; Cuff Location : Left Arm; Cuff Size: Large 02-17-2014 08:51-0400 Heart rate 85 /min Ivette Martin PA-C Work Phone: [employer]. Comment on above: Pattern: Regular 02-17-2014 08:51-0400 Systolic blood pressure 146 mm[Hg] Ivette Martin PA-C Work Phone: [employer]. Comment on above: Patient Position: Sitting; Cuff Location : Left Arm; Cuff Size: Large 01-09-2014 08:13-0500 Body height 156.21 cm Leela Wright LPN [employer] 01-09-2014 08:13-0500 Body mass index (BMI) [Ratio] 30.87 kg/m2 Leela Wesheila VAUGHAN [facility], [facility].; [employer], [employer] 01-09-2014 08:13-0500 Body surface area Derived from formula 1.76 m2 Leela Wesheila VAUGHAN [facility], [facility].; [employer] 01-09-2014 08:13-0500 Body temperature 99.1 [degF] [facility]ela [facility]heila [facility], [facility].; [employer], [employer] Comment on above: Method: Tympanic 01-09-2014 08:13-0500 Body weight 75.33 kg Leela Wesheila VAUGHAN [facility], [facility].; [employer], [employer] 01-09-2014 08:13-0500 Diastolic blood pressure 87 mm[Hg] Leelajoleen Wright LPN [facility] [employer]. Comment on above: Patient Position: Sitting; Cuff Location : Left Arm; Cuff Size: Standard 01-09-2014 08:13-0500 Heart rate 95 /min Leela Wesheila VAUGHAN [facility], [facility].; [employer], [employer] Comment on above: Pattern: Regular 01-09-2014 08:13-0500 Inhaled oxygen concentration 20 % Leela Wright LPN [employer] [facility], [facility] [employer]. Comment on above: Room air 01-09-2014 08:13-0500 Inhaled oxygen concentration 21 % Leela Wright LPN [employer] [facility], [facility] [employer]. Comment on above: Room air 01-09-2014 08:13-0500 SaO2% (BldA) [Mass fraction] 94 % Leela Sumansheila MILLED RUBBER TENDER [employer] [facility], [facility].; [employer]. 01-09-2014 08:13-0500 Systolic blood pressure 151 mm[Hg] Leela Kyle VAUGHAN [employer] [facility], [employer]. Comment on above: Patient Position: Sitting; Cuff Location : Left Arm; Cuff Size: Standard 12-19-2012 11:07-0500 Body height 156.21 cm Emma Ndiaye Freedom VAUGHAN [employer] [facility], [employer]. 12-19-2012 11:07-0500 Body mass index (BMI) [Ratio] 29.56 kg/m2 Emma Ndiaye Freedom VAUGHAN [employer] [facility], [facility] [employer]. 12-19-2012 11:07-0500 Body surface area Derived from formula 1.72 m2 Emma Loja MILLED RUBBER TENDER [employer] [facility], [employer]. 12-19-2012 11:07-0500 Body weight 72.12 kg [facility], [employer]. 12-19-2012 11:07-0500 Diastolic blood pressure 84 mm[Hg] Emma Ndiaye Freedom VAUGHAN [facility] [facility] [employer]. Comment on above: Patient Position: Sitting; Cuff Location : Left Arm; Cuff Size: Standard 12-19-2012 11:07-0500 Heart rate 87 /min Emma Ndiaye Freedom VAUGHAN [employer] [facility].; [employer]. Comment on above: Pattern: Regular 12-19-2012 11:07-0500 Systolic blood pressure 140 mm[Hg] Emmabekah Loja MILLED RUBBER TENDER [employer]. Comment on above: Patient Position: Sitting; Cuff Location : Left Arm; Cuff Size: Standard Encounters Encounter Date Encounter Type Care Provider Facility Start: 07-16-2025 Review Linda Armenta PA-C Work Phone: [employer]. Start: 06-10-2025 End: 06-10-2025 Orders Linda Armenta PA-C Work Phone: [employer]. Start: 10-22-2024 End: 10-22-2024 Telephone follow-up Ivette Martin PA-C Work Phone: [employer]. Start: 10-20-2024 End: 10-20-2024 Emergency department patient visit IVETTE MARTIN [facility] Start: 02-22-2024 End: 02-22-2024 Office outpatient visit 15 minutes Ivette Martin PA-C Work Phone: [employer]. Start: 02-08-2024 End: 02-08-2024 ambulatory IVETTE PAC MARTIN [facility] Start: 02-08-2024 End: 02-08-2024 Office outpatient visit 15 minutes Ivette Martin PA-C Work Phone: [employer]. Start: 02-08-2024 Review Ivette Martin P A-C Work Phone: [employer] Start: 02-22-2022 End: 02-22-2022 Office outpatient visit 15 minutes Ivette Martin PA-C Work Phone: [employer] Start: 02-14-2022 End: 02-14-2022 Office outpatient visit 15 minutes Ivette Martin PA-C Work Phone: [employer] Start: 10-19-2021 End: 10-19-2021 Office outpatient visit 15 minutes Ivette Martin PA-C Work Phone: [employer] Start: 10-18-2021 End: 10-18-2021 Orders Ivette Martin PA-C Work Phone: [employer] Start: 09-29-2021 End: 09-29-2021 Office outpatient visit 15 minutes Ivette Martin PA-C Work Phone: [employer] Start: 09-20-2020 End: 09-20-2020 Orders Ivette Martin PA-C Work Phone: [employer] Start: 08-23-2020 End: 08-23-2020 Orders Ivette Martin PA-C Work Phone: [employer] Start: 08-21-2020 End: 08-21-2020 Orders Ivette Martin PA-C Work Phone: [employer] Start: 08-19-2020 End: 08-19-2020 Office outpatient visit 15 minutes Ivette Martin PA-C Work Phone: [employer]. Start: 01-03-2019 End: 01-03-2019 Office outpatient visit 15 minutes Ivette Martin PA-C Work Phone: [employer]. Start: 12-30-2018 End: 12-30-2018 Orders Ivette Martin PA-C Work Phone: [employer]. Start: 12-24-2018 End: 12-24-2018 Office outpatient visit 15 minutes Ivette Martin PA-C Work Phone: [employer] Start: 07-30-2015 End: 07-30-2015 Nursing evaluation of patient and report Ivette Martin PA-C Work Phone: [employer] Start: 05-28-2015 End: 05-28-2015 Office outpatient visit 15 minutes Ivette Martin PA-C Work Phone: [employer] Start: 12-04-2014 End: 12-04-2014 Office outpatient visit 15 minutes Ivette Martin PA-C Work Phone: [employer] Start: 11-10-2014 End: 11-10-2014 Patient encounter procedure Ivette Martin PA-C Work Phone: [employer] Start: 02-26-2014 End: 02-26-2014 Patient encounter procedure Ivette Martin PA-C Work Phone: [employer] Start: 02-17-2014 End: 02-17-2014 Patient encounter procedure Ivette Martin PA-C Work Phone: [employer] Start: 02-12-2014 End: 02-12-2014 Orders Ivette Martin PA-C Work Phone: [employer] Start: 02-11-2014 End: 02-11-2014 Historical Summary Ivette Martin PA-C Work Phone: [employer] Start: 01-09-2014 End: 01-09-2014 Patient encounter procedure Ivette Veronica REYES-C Work Phone: [employer] Start: 12-19-2012 End: 12-19-2012 Patient encounter procedure Ivette Martin PA-C Work Phone: [employer] Procedures Date Procedure Procedure Detail Performing Clinician Start: 02-08-2024 End: 02-08-2024 Chest x-ray Linda Oanh REYES- C Work Phone: Start: 10-18-2021 End: 10-20-2021 Ct thorax w/o contrast material Ivette Oanh REYES-C Work Phone: Start: 12-30-2018 End: 12-31-2018 Radiologic exam knee complete 4/more views Terrell Reeves MD Work Phone: Start: 12-04-2014 End: 12-04-2014 Chest x-ray Emma Arzola MD Work Phone: Comment on above: patient felt a pop i n front of rib cage (left side) and now notes mild pain and shortness of breath; was leaning against bricks when this occurred; h.o COPD; rule out fracture or pneumothorax Start: 02-17-2014 End: 03-13-2014 Ecg routine ecg w/least 12 lds i&r only Emma Arzola MD Work Phone: Start: 02-17-2014 End: 02-17-2014 Lab findings surveillance Char Chairez Comment on above: 69 Start: 02-17-2014 End: 02-17-2014 Lipid panel results documented & reviewed Char Barnett LPN Comment on above: Abnormal. elevated T C but acceptable LDL and hi HDL Start: 11-19-2012 End: 11-19-2012 tear duct surgery Hailey Buchanan LPN Comment on above: [place] Start: 11-19-1997 End: 11-19-1997 Abdominal hysterectomy Hailey Chairez Comment on above: ovaries remain Plan of Treatment Date Care Activity Detail Author Start: 07-24-2025 Patient encounter procedure Medical; PHYSICAL - awv [employer] Start: 24-Jul-2025 09:10-04:00 LAURIE Armenta Request [employer]. Start: 07-16-2025 Assay of thyroid stimulating hormone tsh TSH (THYROID STIMULATING HORMONE) (79456) Start: 16-Jul-2025 14:18-04:00 Request [employer].; [employer]. Start: 07-16-2025 Lipid panel LIPID PANEL (8 60) Start: 16-Jul-2025 14:18-04:00 Request [employer].; [employer]. Start: 07-16-2025 Comprehensive metabo lic panel CMP w/ GFR* ([id number]) Start: 16-Jul-2025 14:18-04:00 Request [employer].; [employer]. Start: 07-16-2025 Blood count complete auto&auto difrntl wbc CBC, PLATELETS & AUT DIFF (F) (44099) Start: 16-Jul-2025 14:18-04:00 Request [employer]; [employer]. Start: 07-16-2025 Assay of thyroid stimulating hormone tsh TSH (THYROID STIMULATING HORMONE) (11279) Start: 16-Jul-2025 08:43-04:00 Request [employer].; [employer]. Start: 07-16-2025 Blood count complete auto&auto difrntl wbc CBC, PLATELETS & AUT DIFF (F) ([id number]) Start: 16-Jul-2025 08:43-04:00 Request [employer]; [employer]. Start: 07-16-2025 Comprehensive metabo lic panel CMP w/ GFR* ([id number]) Start: 16-Jul-2025 08:43-04:00 Request [employer].; [employer]. Start: 07-16-2025 Lipid panel LIPID PANEL (8 [id number]) Start: 16-Jul-2025 08:43-04:00 Request [employer].; [employer]. Start: 07-16-2025 Nursing evaluation o f patient and report Medical; Nurse visit - fasting BW mjp [facility] Start: 16-Jul-2025 08:40-04:00 PHLEBOTOMY, PHLEBOTOMY Appointment Request [employer] Start: 06-10-2025 Screening digital br east tomosynthesis bi Mammogram 3D (tomosynthesis), bilateral (23996) Start: 10-Jun-2025 Intent [employer]; [employer]. Start: 02-22-2024 Patient encounter procedure Medical; EXTENDED RTN - 2 wk deb [employer] [facility] Start: 22-Feb-2024 13:10-04:00 LAURIE Armenta Appointment Request [employer] [facility] Start: 02-08-2024 Basic metabolic pane l calcium total BMP w/ GFR (F) (78658) Start: 08-Feb-2024 Request [employer]; [employer]. Start: 02-08-2024 Blood count complete auto&auto difrntl wbc CBC, PLATELETS & AUT DIFF (F) (24666) Start: 08-Feb-2024 Request [employer]; [employer]. Start: 02-08-2024 Chest x-ray CHEST X-RAY, P A AND LATERAL (32001) Start: 08-Feb-2024 Intent [employer] [facility]; [employer]. Immunizations Immunization Date Immunization Notes Care Provider Tha bocanegra 07-30-2015 pneumococcal polysaccharide vaccine, 23 valent Ivette Martin PA-C Work Phone: [employer] [facility]; [employer]. Comment on above: Site: Deltoid (Right )VIS Given: * Pneumococcal Polysaccharide (PPSV23) (03/12/15) Payers Date Payer Category Payer Unknown [id number] 1950 Unknown [id number] 1950 Unknown [id number] Unknown [id number] Unknown Social History Date Type Detail Facility Spouse Spouse Kristina Ndiaye [employer].; [employer]. Tobacco Use: Tobacco Use: ; Never smoker. [employer]. Female Kristina Ndiaye [facility] [employer] Work Phone: Never smoked tobacco [employer]. Work Phone: Clinical Note 10-20-2024 Note Date & Type Note Facility 10-20-2024 Note Discharge Instructio ns Discharge Summary [address] [address] [id number] 10/20/2024 Patient: CADENCE WRIGHT Sex: Female : 1950 Age: 74y Thank you for visiting [facility]. You have been evaluated today by Laurie Arnett D.O. for the following condition(s): Principal Diagnosis Chest pain characterized as discomfort. INSTRUCTIONS Follow-up: Follow up with your healthcare provider. Understanding of the discharge instructions verbalized by patient and family. You have been given the following additional information: Noncardiac Chest Pain Patient Signature Facility System Administration Advisor Date/Time 1 of 4 Discharge Instructions General Instructions with ExitWriter [address] [address] [id number] 10/20/2024 Patient: CADENCE WRIGHT Sex: Female : 1950 Age: 74y Thank you for visiting [facility]. You have been evaluated today by Laurie Arnett D.O. for the following condition(s): Principal Diagnosis Chest pain characterized as discomfort. INSTRUCTIONS Follow-up: Follow up with your healthcare provider. Understanding of the discharge instructions verbalized by patient and family. ADDITIONAL INFORMATION Noncardiac Chest Pain 2 of 4 Discharge Instructions Based on your visit today, the healthcare provider doesn't know what is causing your chest pain. In most cases, people who come to the emergency room with chest pain don't have a problem with their heart. Instead, the pain is caused by other conditions. It's important for the healthcare team to be sure you are not having a life-threatening cause for chest pain such as: Heart attack Blood clot in the lungs Collapsed lung Ruptured esophagus Tearing of the aorta Once these major causes have been ruled out, you may have further evaluation for nonheart causes of chest pain. These may be problems with the lungs, muscles, bones, digestive tract, nerves, or mental health. They include: Inflammation around the lungs (pleurisy) Collapsed lung (pneumothorax) Fluid around the lungs (pleural effusion) Lung cancer (a rare cause of chest pain) Inflamed cartilage between the ribs (costochondritis) Fibromyalgia Rheumatoid arthritis Chest wall strain Reflux Stomach ulcer Spasms of the esophagus Gall stones Gallbladder inflammation Panic or anxiety attacks Emotional distress Your condition doesn't seem serious. And your pain doesn't seem to be coming from your heart. But sometimes the signs of a serious problem take more time to appear. Watch for the warning signs listed below. Home care Follow these guidelines when caring for yourself at home: Rest today and don't do any strenuous activity. 3 of 4 Discharge Instructions Take any prescribed medicine as directed. Follow-up care Follow up with your healthcare provider, or as advised, if you don't start to feel better in 24 hours. Call 911 Call 911 if any of these occur: A change in the type of pain: if it feels different, becomes more severe, lasts longer, or begins to spread into your shoulder, arm, neck, jaw or back Shortness of breath or increased pain with breathing Weakness, dizziness, or fainting Rapid heart beat Crushing sensation in your chest When to seek medical advice Call your healthcare provider right away if any of these occur: Cough with dark colored sputum (phlegm) or blood Fever of 100.4F (38C) or higher, or as directed by your healthcare provider Swelling, pain or redness in one leg 4 of 4 [facility] Summary Purpose Family History No Family History Records Found Bleeding disorder Status:Active Comments:Alexandria gamboa Bleeding disorder Status:Active Comments:Alexandria gamboa hemophilia Coronary Artery Disease Status:Active Comments :Father. Diabetes Mellitus Type II Status:Active Commen ts:Father. Mother. Diabetes Mellitus Type II Status:Active Commen ts:Father. Father Status:Active Comments:age 72 - cardiac and DM complications Osteoarthritis Status:Active Comments:Father. Bleeding disorder Status:Active Comments:Alexandria gamboa Bleeding disorder Status:Active Comments:Alexandria gamboa hemophilia Coronary Artery Disease Status:Active Comments :Father. Diabetes Mellitus Type II Status:Active Commen ts:Father. Mother. Diabetes Mellitus Type II Status:Active Commen ts:Father. Father Status:Active Comments:age 72 - cardiac and DM complications Osteoarthritis Status:Active Comments:Father. Bleeding disorder Status:Active Comments:Alexandria gamboa Bleeding disorder Status:Active Comments:Fatrao r. hemophilia Coronary Artery Disease Status:Active Comments :Father. Diabetes Mellitus Type II Status:Active Commen ts:Father. Mother. Diabetes Mellitus Type II Status:Active Commen ts:Father. Father Status:Active Comments:age 72 - cardiac and DM complications Osteoarthritis Status:Active Comments:Father. Bleeding disorder Status:Active Comments:Alexandria gamboa Bleeding disorder Status:Active Comments:Alexandria r. hemophilia Coronary Artery Disease Status:Active Comments :Father. Diabetes Mellitus Type II Status:Active Commen ts:Father. Mother. Diabetes Mellitus Type II Status:Active Commen ts:Father. Father Status:Active Comments:age 72 - cardiac and DM complications Osteoarthritis Status:Active Comments:Father. Bleeding disorder Status:Active Comments:Alexandria gamboa Bleeding disorder Status:Active Comments:Alexandria r. hemophilia Coronary Artery Disease Status:Active Comments :Father. Diabetes Mellitus Type II Status:Active Commen ts:Father. Mother. Diabetes Mellitus Type II Status:Active Commen ts:Father. Father Status:Active Comments:age 72 - cardiac and DM complications Osteoarthritis Status:Active Comments:Father. Bleeding disorder Status:Active Comments:Alexandria gamboa Bleeding disorder Status:Active Comments:Alexandria r. hemophilia Coronary Artery Disease Status:Active Comments :Father. Diabetes Mellitus Type II Status:Active Commen ts:Father. Mother. Diabetes Mellitus Type II Status:Active Commen ts:Father. Father Status:Active Comments:age 72 - cardiac and DM complications Osteoarthritis Status:Active Comments:Father. Bleeding disorder Status:Active Comments:Alexandria gamboa Bleeding disorder Status:Active Comments:Fatrao r. hemophilia Coronary Artery Disease Status:Active Comments :Father. Diabetes Mellitus Type II Status:Active Commen ts:Father. Mother. Diabetes Mellitus Type II Status:Active Commen ts:Father. Father Status:Active Comments:age 72 - cardiac and DM complications Osteoarthritis Status:Active Comments:Father. Bleeding disorder Status:Active Comments:Fathe r. Bleeding disorder Status:Active Comments:Fathe r. hemophilia Coronary Artery Disease Status:Active Comments :Father. Diabetes Mellitus Type II Status:Active Commen ts:Father. Mother. Diabetes Mellitus Type II Status:Active Commen ts:Father. Father Status:Active Comments:age 72 - cardiac and DM complications Osteoarthritis Status:Active Comments:Father. Bleeding disorder Status:Active Comments:Fathe r. Bleeding disorder Status:Active Comments:Fathe r. hemophilia Coronary Artery Disease Status:Active Comments :Father. Diabetes Mellitus Type II Status:Active Commen ts:Father. Mother. Diabetes Mellitus Type II Status:Active Commen ts:Father. Father Status:Active Comments:age 72 - cardiac and DM complications Osteoarthritis Status:Active Comments:Father. Bleeding disorder Status:Active Comments:Fathe r. Bleeding disorder Status:Active Comments:Fathe r. hemophilia Coronary Artery Disease Status:Active Comments :Father. Diabetes Mellitus Type II Status:Active Commen ts:Father. Mother. Diabetes Mellitus Type II Status:Active Commen ts:Father. Father Status:Active Comments:age 72 - cardiac and DM complications Osteoarthritis Status:Active Comments:Father. Bleeding disorder Status:Active Comments:Fathe r. Bleeding disorder Status:Active Comments:Fathe r. hemophilia Coronary Artery Disease Status:Active Comments :Father. Diabetes Mellitus Type II Status:Active Commen ts:Father. Mother. Diabetes Mellitus Type II Status:Active Commen ts:Father. Father Status:Active Comments:age 72 - cardiac and DM complications Osteoarthritis Status:Active Comments:Father. Bleeding disorder Status:Active Comments:Fathe r. Bleeding disorder Status:Active Comments:Fathe r. hemophilia Coronary Artery Disease Status:Active Comments :Father. Diabetes Mellitus Type II Status:Active Commen ts:Father. Mother. Diabetes Mellitus Type II Status:Active Commen ts:Father. Father Status:Active Comments:age 72 - cardiac and DM complications Osteoarthritis Status:Active Comments:Father. Advance Directives No Advanced Directives Records FoundNo Advanced Directives Records FoundNo Advanced Directives Records Found Additional Source Comments INFORMATION SOURCE (unrecogn ized section and content) DATE CREATED AUTHOR 03/24/2022 [facility] DATE CREATED AUTHOR AUTHOR'S ORGANIZ ATION 10/21/2024 [facility] DATE CREATED AUTHOR AUTHOR'S ORGANIZ ATION 07/19/2025 [facility] FOR RECORDS PERTAINING TO PATIENTS WHO ARE OR HAVE BEEN ENROLLED IN A CHEMICAL DEPENDENCY/SUBSTANCEABUSE PROGRAM, SOME INFORMATION MAY BE OMITTED. This clinical summary was aggregated from multiple sources. Caution should be exercised in using it in the provision of clinical care. This summary normalizes information from multiple sources, and as a consequence, information in this document may materially change the coding, format and clinical context of patient data. In addition, data may be omitted in some cases. CLINICAL DECISIONS SHOULD BE BASED ON THE PRIMARY CLINICAL RECORDS. [facility] [employer] [facility]. provides no warranty or guarantee of the accuracy or completeness of information in this document.
[2025-07-25 10:14] LABS: Hematocrit 49.0 % (37-47); Hemoglobin 16.1 g/dL (12.0-15.0); Immature Granulocytes Count 0.020 X10^3/uL (0.0-0.0); Mean Corp Hgb Conc 32.9 g/dL (32-36); Mean Corpuscular Volume 90.2 fL (81-99); Mean Platelet Vol. 11.4 fl (6.2-12.0); NRBC Flagged by Analyzer 0 % (0-5); Platelet Count 284 K/mm3 (150-450); RBC Distribution Width CV 13.1 % (11.6-14.6); RBC Distribution Width SD 43.5 fl (35.1-43.9); Red Blood Count 5.43 M/mm3 (4.2-5.4); White Blood Count 6.9 K/mm3 (4.4-11.0)
[2025-07-25 10:30] LABS: Anion Gap 12 (5-15); BUN 14 mg/dL (4-19); BUN/Creat Ratio 21.4 RATIO (10-20); Calcium,Total 9.9 mg/dL (7.6-11.0); Carbon Dioxide 29.1 mmol/L (21.0-32.0); Chloride 97 mmol/L (98-108); Estimated Creatinine Clearance 44.29 ml/min (50-250); Glucose 103 mg/dL (70-99); Potassium 4.0 mmol/L (3.3-5.1); Pro- Brain NATRIURETIC PEPTIDE 38 pg/mL (<=900); Troponin T High Sensitivity 20 ng/L (<=14)
--- NOTE | 2025-07-25 10:35 | CM.ED ---
Social Work Date of referral: 07/25/25 Reason for referral: No advance care directives (ACD's) on file Referred by: Social Work Identification Patient provided consent to social work visit. [employer] Kettle Tender requested patient bring in a copy of ACD's which patient agreed to do if she can find them. If not, medical social consultant educated patient and her family about how to schedule an appointment with [facility] if patient is interested in assistance. Leela Morgan, BACKWINDER, GAS TREATER
--- NOTE | 2025-07-25 11:09 | PCA ---
THIS SHEET METAL FORMER RECEIVED A CALL DR MESA. [facility] SAID THEY ARE WAITING ON THE CT RESULTS AND IMAGES FROM [facility] FROM PT'S VISIT YESTERDAY. CT SAID THEY ARE NOT GOING TO BE DOING MORE CT IMAGING TODAY BECAUSE THE PT RECEIVED SOME YESTERDAY. THIS SHEET METAL FORMER NOTIFIED PT NURSE.
[2025-07-25] MEDS: Azithromycin 500 MG in 0.9% Normal Saline (250mL Bag) 250 ML 255 MG IV (11:51)
[2025-07-25] MEDS: 0.9% Normal Saline (1000mL) 1,000 ML 1000 ML IV (12:45)
--- NOTE | 2025-07-25 12:56 | ED.RN ---
Pt heart rate increased to 137 while ambulating with pulse ox.
--- NOTE | 2025-07-25 13:02 | PCM.HP.STD ---
HPI - General General Date of Admission: 07/25/25 Date of Service: 07/25/25 Chief Complaint: shortness of breath HPI Narrative CADENCE ORELLANA, is a 74 F with a PMh as outlined who was admitted via the ED on 07/25/2025 with a complaint of shortness of breath which had been going on for several days prior to admission. SHe has a history of COPD. She admitted to a cough which was non productive. She denied any chest pain, palpitations, nausea, vomiting or any other symptoms. Review of systems was otherwise negative. She recently saw her PCP who ordered a CTA chest. the CTA chest was negative for PE, but showed evidence of atypical pneumonia. She does use oxygen at home but uses it intermittently. Review of systems otherwise negative. Vitals in the ED were blood pressure 109/62, pulse rate of 94, respiratory rate of 28 and she was saturating at 97% on 2 L of oxygen. CBC showed hemoglobin of 16.1 and WBC of 6.9. Platelets were 284. Chemistry showed sodium of 139 with potassium of 4 and bicarb of 29.1. Creatinine was 0.66. proBNP was only 38 and initial troponin was 20 and delta troponin was 17. COVID, flu and RSV screens were negative. She has been admitted to be managed for hypoxia due to probable atypical pneumonia as per CTA read. [facility] Medical History COPD (chronic obstructive pulmonary disease) Home Medications ?Medication ?Instructions ?Recorded ?Last Taken ?Type albuterol sulfate 90 mcg/actuation 1 inh inhalation 4X/DAY PRN PRN 07/25/25 Unknown History breath activated powder inhaler shortness of breath (ProAir RespiClick) fluticasone furoate 200 1 inh inhalation DAILY 07/25/25 07/25/25 History mcg-vilanterol 25 mcg/dose inhalation powder (Breo Ellipta) Allergy/AdvReac Type Severity Reaction Status Date / Time No Known Allergies Allergy Verified 07/25/25 09:15 Social History Smoking Status: Never smoker ROS Constitutional Constitutional: Reports fatigue, malaise and weakness; Denies anorexia, chills or fever(s) Eyes Eyes: Denies change in vision ENT HEENT: Denies dysphagia, headache(s) or nasal congestion Cardiovascular Cardiovascular: Reports dyspnea on exertion Gastrointestinal Gastrointestinal: Denies abdominal pain, coffee ground emesis, diarrhea, nausea or vomiting Genitourinary Genitourinary: Denies burning urination or dysuria Neurologic Neurologic: Denies confusion, dizziness, focal weakness or headache(s) Psychiatric Psychiatric: Denies anxiety Vital Signs Vital Signs Vital Signs: 07/25/25 09:14 07/25/25 09:29 07/25/25 09:40 Temperature 97.9 F Temperature Source Temporal Pulse Rate 125 H Respiratory Rate 22 H Respiratory Effort Short of Breath Respiratory Depth Normal Respiratory Pattern Normal Blood Pressure 110/69 Blood Pressure Mean 82 Pulse Ox 87 96 Oxygen Delivery Method Nasal Cannula Room Air Nasal Cannula Oxygen Flow Rate (L/min) 3 4 07/25/25 09:51 07/25/25 10:15 07/25/25 12:00 Temperature 98.7 F Temperature Source Oral Pulse Rate 103 H 111 H 96 Respiratory Rate 20 H 18 23 H Respiratory Effort Respiratory Depth Respiratory Pattern Normal Blood Pressure 118/64 102/61 Blood Pressure Mean 82 74 Pulse Ox 100 91 Oxygen Delivery Method Nasal Cannula Room Air Oxygen Flow Rate (L/min) 3 Weight Weight: 98 lb 12.273 oz Body Mass Index (BMI) 17.4 Physical Exam Const alert, oriented x3 and no apparent distress Constitutional Narrative: frail General Appearance: cooperative HEENT normocephalic, head/scalp atraumatic, moist oral mucous membranes and oropharynx normal Mouth: oral and palatal mucosa normal Eyes EOMs intact bilaterally and conjunctivae normal Neck supple and no JVD Resp Resp Narrative: Mildly diminished breath sounds bibasilarly. Mild wheezing. No crackles. On 3 L of oxygen Cardio regular rate, regular rhythm, S1 normal heart sound, S2 normal heart sound and no murmurs GI soft to palpation, non-tender and non-distended Extremity normal to inspection, full ROM and no clubbing, cyanosis or edema Neuro oriented x3 and moves all extremities Sensorium / Orientation: awake and alert Motor Exam: strength 5/5 throughout Psych affect normal Results Lab / Micro Data 07/25/25 09:30 07/25/25 09:30 Labs: Laboratory Results - last 24 hr 07/25/25 09:30: WBC 6.9, RBC 5.43 H, Hgb 16.1 H, Hct 49.0 H, MCV 90.2, MCH 29.7, MCHC 32.9, RDW Std Deviation 43.5, RDW Coeff of Jenifer 13.1, Plt Count 284, MPV 11.4, Immature Gran % (Auto) 0.300, Neut % (Auto) 54.4, Lymph % (Auto) 27.8, [place] % (Auto) 9.5, Eos % (Auto) 6.6 H, Baso % (Auto) 1.4 H, Absolute Neuts (auto) 3.8, Absolute Lymphs (auto) 1.93, Nucleated RBC % 0, Sodium 139, Potassium 4.0, Chloride 97 L, Carbon Dioxide 29.1, Anion Gap 12, BUN 14, Creatinine 0.66 L, Estim Creat Clear Calc 44.29 L, Est GFR (MDRD) Non-Af 93, BUN/Creatinine Ratio 21.4 H, Glucose 103 H, Lactic Acid 1.1, Calcium 9.9, Troponin T High Sens 20 H, NT pro BNP II 38 Micro: Microbiology 07/25/25 10:03 Mucosa - Nose SARS-CoV-2, Influenza & RSV (PCR) - Final Assessment & Plan Assessment/Plan (1) Hypoxia: (2) Pneumonia: PLAN: Plan #Acute hypoxia due to COPD exacerbation and pneumonia Admitted with a complaint of shortness of breath which have been going on for several days She went to an outside hospital ED and had a CTA of the chest there which showed bilateral lung base atypical infectious process mild hepatomegaly as well as gallbladder sludge versus partially calcified stones and adnexal cyst versus abnormal lymph nodes recommendation for pelvic ultrasound for further characterization. She also had mild left lobe intrahepatic ductal dilatation. Will check for urine antigen for strep and Legionella. COVID, RSV and influenza screen were negative. Will order a comprehensive respiratory panel. Started on IV levofloxacin. Breathing treatments bronchodilators. IV Solu-Medrol 40 mg Q8. Titrate oxygen to maintain saturation above 90%. Hydrate with IV fluid normal saline at 125 cc per #DVT prophylaxis: Lovenox #CODE STATUS: Full code Patient and daughter counseled extensively about different types of CODE STATUS including full code, DNR CCA and DNR CCA. Patient elects to be full code. She said if it is very short duration she would want to be made full code but if it is prolonged then she would want her family to reevaluate that she does not want to be kept on machines for long period total [id number] time 16 minutes. Charges/Coding Visit Charges Inpatient E&M: 18189 Init Hosp L3 Procedures Hospitalists Procedures: 47798 Advncd Care Plan 30 Min
[2025-07-25 13:06] LABS: Troponin T High Sens 2 HR 17 ng/L (<=14)
--- OUTSIDE RECORDS SUMMARY | 2025-07-25 13:25 | XMS RPT_ITS | CCD ---
Author Organization [facility] Care Team Providers Care Stock Letterer Name Role Phone Veronica SULLIVAN, Ivette J Unavailable Veronica SULLIVAN, Ivette J Unavailable Ness HERNANDEZ, Emma Minaya Unavailable Leandro HERNANDEZ, Terrell Coelho Unavailable Brandon HERNANDEZ, Miky Tovar Unavailable Lizandro SULLIVAN, Ivy Hayes Unavailable Nitish BARRIOSN, Yary Unavailable Unavailable Chanel ADMINISTRATIVE SECRETARY, Hailey Unavailable Unavailable Kimani TRIPLETT, Yesica Stack Unavailable Unavailable Anibal ADMINISTRATIVE SECRETARY, Char Unavailable Unavailable Geovany SULLIVAN, Linda J Unavailable [phone] [employer] ADMINISTRATIVE SECRETARY, Emma Ndiaye Unavailable Unavailab le Olivia ADMINISTRATIVE SECRETARY, Ariella Duron Unavailable Unavailab le Vess ADMINISTRATIVE SECRETARY, Orlando L Unavailable Unavailable Kyle ADMINISTRATIVE SECRETARY, Leela Unavailable Unavailabl rei Campos ADMINISTRATIVE SECRETARY, Ada Chairez Unavailable Unavaila ble Unavailable Unavailable Last ADMINISTRATIVE SECRETARY, Isamar Unavailable Unavailabl e MARTIN, IVETTE PAC [...] Consulting Unavailable Armenta PA-C, Linda J Unavailable Clint VAUGHAN, Luis Angel Unavailable Unavailable Medications Current Medications Medication Drug Class(es) Dates Sig (Normalized) Sig (Original) [id number] 200 actuat albuterol 0.09 mg/actuat metered dose [...] 30 {Capsule} Refills: 0 Ordered: 29-Sep-2021 CLEMENT Buhcanan Start: 03-Jan-2019 End: 29-Sep-2021 Status: Inactive cephalexin [...] has rx for abx and steroids per online media buyer so she did start that when she was sick the last time - unsure what meds or doses.Was recently in [place] - daughter drove in vehicle with frequent stops. 02-08-2024 Unclassified (9 sources) Follow up consultation - The patient is here to follow-up after Emergency Room/Urgent Care ([facility]) on : (02/20/22). Current symptoms include dyspnea, weakness and fever. Note for Consultation follow-up: Just started using O2 over the weekend. States fevers are mainly during the night. She has not checked her temperature at night, but reports feeling feverish.Workup in the ER did not show any acute disease.Patient last saw her online media buyer about 2 weeks ago - this was [...] [facility] Unclassified (12 sources) Rectal bleeding - [...] tired lately. Does have appt with her online media buyer in [place] this week (Dr. Spencer). Continues Asmanex 1 [...] to the ER when she was in [place] (01/28/24)- they checked her heart and looked for blood clots (CT chest) and all was normal. She has rx for abx and steroids per online media buyer so she did start that when she was sick the last time - doxycycline and prednisone. Daughter drove her back from [place] in vehicle with frequent stops.Unable to see her online media buyer until March 12.Has not been using albuterol [...] show any acute disease.Patient last saw her online media buyer about 2 weeks ago - this was [...] baseline. Has a f/u appt with her online media buyer end of February. 02-22-2024 Results Test Name Value Interpretation Reference Range Facility CBC (INCLUDES DIFF/PLT)on Basophils (Bld) [#/Vol] 0.078 10*3/uL Normal 0-200 [facility] Comment on above: Performed By: #### 1 0231, 6399, 7600 #### [facility] of [address], [address] [place] [address] Paint Roller Assembler: Fabio Disla MD Basophils/100 WBC (Bld) 0.8 % Normal [facility] Comment on above: Performed By: #### 1 0231, 63, 7600 #### [facility] of [address], [address] [place] [address] Paint Roller Assembler: Fabio Disla MD Eosinophils (Bld) [#/Vol] 0.369 10*3/uL Normal 15-500 [facility] Comment on above: Performed By: #### 1 023, 63, 7600 #### [facility] of [address], [address] [place] [address] Paint Roller Assembler: Fabio Disla MD Eosinophils/100 WBC (Bld) 3.8 % Normal [facility] Comment on above: Performed By: #### 1 023, 63, 7600 #### [facility] of [place] [address] Paint Roller Assembler: Fabio Disla MD Erythrocyte distribution width (RBC) [Ratio] 12.4 % Normal 11.0-15.0 [facility] Comment on above: Performed By: #### 1 023, 63, 7600 #### [facility] of [place] [address] Paint Roller Assembler: Fabio Disla MD Hematocrit (Bld) [Volume fraction] 50.2 % High 35.0-45.0 [facility] Comment on above: Performed By: #### 1 0231, 6399, 7600 #### [facility] of [place] [address] Paint Roller Assembler: Fabio Disla MD Hemoglobin (Bld) [Mass/Vol] 16.4 g/dL High 11.7-15.5 [facility] Comment on above: Performed By: #### 1 0231, 63, 7600 #### [facility] of [place] [address] Paint Roller Assembler: Fabio Disla MD Lymphocytes (Bld) [#/Vol] 1.63 10*3/uL Normal 850-3900 [facility] Comment on above: Performed By: #### 1 0231, 63, 7600 #### [facility] of [address], [address] [place] [address] Paint Roller Assembler: Fabio Disla MD Lymphocytes/100 WBC (Bld) 16.8 % Normal [facility] Comment on above: Performed By: #### 1 0231, 63, 7600 #### [facility] [place] [address] Paint Roller Assembler: Fabio Disla MD MCH (RBC) [Entitic mass] 30.4 pg Normal 27.0-33.0 [facility] Comment on above: Performed By: #### 1 023, 63, 7600 #### [facility] [place] [address] Paint Roller Assembler: Fabio Disla MD MCHC (RBC) [Mass/Vol] 32.7 [...] 0231, 63, 7600 #### [facility] of [place] [address] Paint Roller Assembler: Fabio Disla MD MCV (RBC) [Entitic vol] 93.0 fL Normal 80.0-100.0 [facility] Comment on above: Performed By: #### 1 0231, 6399, 7600 #### [facility] of [address], [address] [place] [address] Paint Roller Assembler: Fabio Disla MD Monocytes (Bld) [#/Vol] 0.825 10*3/uL Normal 200-950 [facility] Comment on above: Performed By: #### 1 0231, 6399, 7600 #### [facility] of [address], [address] [place] [address] Paint Roller Assembler: Fabio Disla MD Monocytes/100 WBC (Bld) 8.5 % Normal [facility] Comment on above: Performed By: #### 1 0231, 6399, 7600 #### [facility] of [address], [address] [place] [address] Paint Roller Assembler: Fabio Disla MD Neutrophils (Bld) [#/Vol] 6.8 10*3/uL Normal 6988-2499 [facility] Comment on above: Performed By: #### 1 0231, 63, 7600 #### [facility] of [address], [address] [place] [address] Paint Roller Assembler: Fabio Disla MD Neutrophils/100 WBC (Bld) 70.1 % Normal [facility] Comment on above: Performed By: #### 1 0231, 63, 7600 #### [facility] of [address], [address] [place] [address] Paint Roller Assembler: Fabio Disla MD Platelet mean volume (Bld) [Entitic vol] 11.7 fL Normal 7.5-12.5 [facility] Comment on above: Performed By: #### 1 0231, 6399, 7600 #### [facility] of [address], [address] [place] [address] Paint Roller Assembler: Fabio Disla MD Platelets (Bld) [#/Vol] 267 10*3/uL Normal 140-400 [facility] Comment on above: Performed By: #### 1 0231, 6399, 7600 #### [facility] of [address], [address] [place] [address] Paint Roller Assembler: Fabio Disla MD RBC (Bld) [#/Vol] 5.40 10*6/uL High 3.80-5.10 [facility] Comment on above: Performed By: #### 1 0231, 63, 7600 #### [facility] of [address], [address] [place] [address] Paint Roller Assembler: Fabio Disla MD WBC (Bld) [#/Vol] 9.7 10*3/uL Normal 3.8-10.8 [facility] Comment on above: Performed By: #### 1 0231, 63, 7600 #### [facility] of [address], [address] [place] [address] Paint Roller Assembler: Fabio Disla MD [facility]AB[facility] 07-17-2025 Albumin [Mass/Vol] 4.4 g/dL Normal 3.6-5.1 [facility] Comment on above: Performed By: #### 1 023, 63, 7600 #### [facility] of [address], [address] [place] [address] Paint Roller Assembler: Fabio Disla MD Albumin/Globulin [Mass ratio] 1.6 {ratio} Normal 1.0-2.5 [facility] Comment on above: Performed By: #### 1 0231, 63, 7600 #### [facility] of [address], [address] [place] [address] Paint Roller Assembler: Fabio Disla MD ALP [Catalytic activity/Vol] 58 U/L Normal 37-153 [facility] Comment on above: Performed By: #### 1 0231, 63, 7600 #### [facility] of [address], [address] [place] [address] Paint Roller Assembler: Fabio Disla MD ALT [Catalytic activity/Vol] 19 U/L Normal 6-29 [facility] Comment on above: Performed By: #### 1 0231, 6399, 7600 #### [facility] of [address], [address] [place] [address] Paint Roller Assembler: Fabio Disla MD AST [Catalytic activity/Vol] 24 U/L Normal 10-35 [facility] Comment on above: Performed By: #### 1 0231, 63, 7600 #### [facility] of [place] [address] Paint Roller Assembler: Fabio Disla MD Bilirubin [Mass/Vol] 0.7 mg/dL Normal 0.2-1.2 [facility] Comment on above: Performed By: #### 1 0231, 6399, 7600 #### [facility] [address], [address] [place] [address] Paint Roller Assembler: Fabio Disla MD BUN/CREATININE RATIO SEE NOTE: Normal 6-22 [facility] Comment on above: Result Comment: Not Reported: BUN and Creatinine are within reference range. Performed By: #### 1 023, 63, 7600 #### [facility] of [place] [address] Paint Roller Assembler: Fabio Disla MD Calcium [Mass/Vol] 9.8 mg/dL Normal 8.6-10.4 [facility] Comment on above: Performed By: #### 1 0231, 63, 7600 #### [facility] [place] [address] Paint Roller Assembler: Fabio Disla MD Chloride [Moles/Vol] 97 mmol/L Low 98-110 [facility] Comment on above: Performed By: #### 1 0231, 63, 7600 #### [facility] of [place] [address] Paint Roller Assembler: Fabio Disla MD CO2 [Moles/Vol] 30 mmol/L Normal 20-32 [facility] Comment on above: Performed By: #### 1 0231, 6399, 7600 #### [facility] of [place] [address] Paint Roller Assembler: Fabio Disla MD Creatinine [Mass/Vol] 0.63 mg/dL Normal 0.60-1.00 [facility] Comment on above: Performed By: #### 1 0231, 63, 7600 #### [facility] of [address], [address] [place] [address] Paint Roller Assembler: Fabio Disla MD GFR/1.73 sq M.predicted among non-blacks MDRD (S/P/Bld) [Vol rate/Area] 94 mL/min/{1.73_m2} Normal > OR = 60 [facility] Comment on above: Performed By: #### 1 230, 63, 7600 #### [facility] of [place] [address] Paint Roller Assembler: Fabio Disla MD Globulin (S) [Mass/Vol] 2.8 g/dL Normal 1.9-3.7 [facility] Comment on above: Performed By: #### 1 230, 63, 0 #### [facility] of [place] [address] Paint Roller Assembler: Fabio Dilsa MD Glucose [Mass/Vol] 89 mg/dL Normal 65-99 [facility] Comment on above: Result Comment: Fasting reference interval Performed By: #### 1 230, 63, 0 #### [facility] of [place] [address] Paint Roller Assembler: Fabio Disla MD Potassium [Moles/Vol] 4.3 mmol/L Normal 3.5-5.3 [facility] Comment on above: Performed By: #### 1 023, 63, 7600 #### [facility] of [place] [address] Paint Roller Assembler: Fabio Disla MD Protein [Mass/Vol] 7.2 g/dL Normal 6.1-8.1 [facility] Comment on above: Performed By: #### 1 023, 63, 7600 #### [facility] of [place] [address] Paint Roller Assembler: Fabio Disla MD Sodium [Moles/Vol] 138 mmol/L Normal 135-146 [facility] Comment on above: Performed By: #### 1 0231, 63, 7600 #### [facility] [address], [address] [place] [address] Paint Roller Assembler: Fabio Disla MD Urea nitrogen [Mass/Vol] 16 mg/dL Normal 7-25 [facility] Comment on above: Performed By: #### 1 0231, 6399, 7600 #### [facility] [address], [address] [place] [address] Paint Roller Assembler: Fabio Disla MD LIPID PANEL, [facility] 08- Cholesterol [Mass/Vol] 219 mg/dL High <200 [facility] Comment on above: Performed By: #### 1 0231, 63, 7600 #### [facility] [address], [address] [place] [address] Paint Roller Assembler: Fabio Disla MD Cholesterol in HDL [Mass/Vol] 81 mg/dL Normal > OR = 50 [facility] Comment on above: Performed By: #### 1 0231, 63, 7600 #### [facility] [address], [address] [place] [address] Paint Roller Assembler: Fabio Disla MD Cholesterol in LDL [Mass/Vol] [...] LDL-C. Constantino GIFFORD et al. LEEROY. 2013;310(19): 2705-7140 (http://education.Arch Grants.Dealflicks/faq/BZS117) Performed By: #### 1 0231, 6399, 7600 #### [facility] [address], [address] [place] [address] Paint Roller Assembler: Fabio Disla MD Cholesterol.total/C holesterol in HDL [Mass ratio] 2.7 {ratio} Normal <5.0 [facility] Comment on above: Performed By: #### 1 0231, 6399, 7600 #### [facility] [place] [address] Paint Roller Assembler: Fabio Disla MD NON HDL CHOLESTEROL 138 mg/dL (calc) High <130 [facility] Comment on above: Result Comment: For patients with diabetes plus 1 major ASCVD risk factor, treating to a non-HDL-C goal of <100 mg/dL (LDL-C of <70 mg/dL) is considered a therapeutic option. Performed By: #### 1 0231, 6399, 7600 #### [facility] [place] [address] Paint Roller Assembler: Fabio Disla MD Triglyceride [Mass/Vol] 74 mg/dL Normal <150 [facility] Comment on above: Performed By: #### 1 023, 63, 7600 #### [facility] [place] [address] Paint Roller Assembler: Fabio Disla MD TSHon 07-17-2025 TSH Qn 4.28 m[IU]/L Normal 0.40-4.50 [facility] Comment on above: Performed By: #### 1 023, 6399, 7600 #### [facility] [place] [address] Paint Roller Assembler: Fabio Disla MD CBC + DIFFon 10-20-2024 Baso # 0.03 x10EE3/UL Normal 0.00 - 0.10 [facility] Comment on above: Performed By: #### 2 60194 #### [facility],[address] [place] [address] Basophils/100 WBC (Bld) 0.3 % Normal 0.0 - 2.0 [facility] Comment on above: Performed By: #### 2 32131 #### [facility],[address] [place], [place] [id number] CBC + DIFF Normal [facility] Comment on above: Result Comment: CBC- COMPLETE BLOOD COUNT Performed By: #### 2 31840 #### [facility],[address] [place] [address] EO # 0.20 x10EE3/UL Normal 0.00 - 0.50 [facility] Comment on above: Performed By: #### 2 87182 #### [place] [address] Eosinophils/100 WBC (Bld) 2.6 % Normal 0.0 - 7.0 [facility] Comment on above: Performed By: #### 2 11946 #### [place] [address] Erythrocyte distribution width (RBC) [Ratio] 13.7 % Normal 12.0 - 15.6 [facility] Comment on above: Performed By: #### 2 16321 #### [place] [address] Hematocrit (Bld) [Volume fraction] 46.5 % High 34.0 - 46.0 [facility] Comment on above: Performed By: #### 2 63149 #### [place] [address] Hemoglobin (Bld) [Mass/Vol] 15.6 g/dL Normal 12.0 - 16.0 [facility] Comment on above: Performed By: #### 2 98748 #### [place] [id number] Lymph # 1.58 x10EE3/UL Normal 0.80 - 2.80 [facility] Comment on above: Performed By: #### 2 39674 #### [place] [id number] Lymphocytes/100 WBC (Bld) 20.0 % Normal 20.0 - 45.0 [facility] Comment on above: Performed By: #### 2 54443 #### [facility],[address] [place] [address] MANUAL DIFF N/A Normal [facility] Comment on above: Performed By: #### 2 00289 #### [facility],[address] [place] [address] MCH (RBC) [Entitic mass] 30 pg Normal 27 - 33 [facility] Comment on above: Performed By: #### 2 88263 #### [facility],[address] [place] [address] MCHC 34 X10 3 Normal 32 - 36 [facility] Comment on above: Performed By: #### 2 58872 #### [place] [address] MCV (RBC) [Entitic vol] 90 fL Normal 80 - 99 [facility] Comment on above: Performed By: #### 2 36251 #### [place] [address] Crosby # 0.56 x10EE3/UL Normal 0.20 - 1.00 [facility] Comment on above: Performed By: #### 2 10852 #### [facility],[address] [place] [address] MONOS % 7.1 % Normal 0.0 - 10.0 [facility] Comment on above: Performed By: #### 2 90355 #### [facility],[address] [place] [address] Morphology Praveen (Bld) [Interp] N/A Normal [facility] Comment on above: Performed By: #### 2 03621 #### [place] [address] Neut # 5.57 x10EE3/UL Normal 1.50 - 7.10 [facility] Comment on above: Performed By: #### 2 67936 #### [place] [address] Neutrophils/100 WBC (Bld) 70.1 % Normal 46.0 - 76.0 [facility] Comment on above: Performed By: #### 2 09219 #### [facility],[address] [place] [address] PLATELET 280 x10EE3/UL Normal 150 - 450 [facility] Comment on above: Performed By: #### 2 55836 #### [facility],[address] [place] [address] Platelet mean volume (Bld) [Entitic vol] 9.0 fL Normal 6.6 - 10.5 [facility] Comment on above: Result Comment: AUTO MATED DIFFERENTIAL Performed By: #### 2 51429 #### [facility],[address] [place] [address] 06781 RBC 5.18 x 10EE6/UL Normal 4.10 - 5.30 [facility] Comment on above: Performed By: #### 2 38533 #### [facility],[address] [place] [address] 45484 WBC 7.9 x 10EE3/UL Normal 4.5 - 10.8 [facility] Comment on above: Performed By: #### 2 78467 #### [facility],[address] [place] [address] 21502 CHEST 1 VIEWon 10-20-2024 CHEST 1 VIEW [place] [address] Patient: CADENCE WRIGHT Phone#: : 1950 Age: 74 Gender: F Pt. Type: ER Account: [id number] Location: [facility] Ordering: LAURIE ARNETT Exam Date: 10/20/2024/10:42 Family Phys: IVETTE MARTIN Charge Code: 280322 Physician: [place] Order #: [id number] Dose#: PROCEDURE: X-RAY CHEST 1 VIEW COMPARISON: [facility], XR, CHEST 2 VIEWS, 02/08/2024, 10:06. INDICATIONS: [...] Rutherford MD on 10/20/2024 at 11:51 Normal [facility] CMP with eGFRon 10-20-2024 AGE 74 years Normal [facility] Comment on above: Performed By: #### 2 35514 ####[facility],[address] [place] [address] 46368 Albumin [Mass/Vol] 3.8 g/dL Normal 3.4 - 5.0 [facility] Comment on above: Performed By: #### 2 31219 ####[facility],[address] [place] [address]830 Albumin/Globulin [Mass ratio] 1.0 {ratio} Normal 0.9 - 1.6 [facility] Comment on above: Performed By: #### 2 47438 ####[facility],[address] [place] [address] 94227 ALK PHOS 74 U/L Normal 46 - 116 [facility] Comment on above: Performed By: #### 2 91714 ####[address] [address] ALT [Catalytic activity/Vol] 33 U/L Normal 16 - 63 [facility] Comment on above: Performed By: #### 2 04995 ####[address] [address] Anion gap [Moles/Vol] 11 mmol/L Normal 10 - 20 [facility] Comment on above: Performed By: #### 2 81411 ####[facility],[address] [place], [place] [address] AST [Catalytic activity/Vol] 33 U/L Normal 13 - 39 [facility] Comment on above: Performed By: #### 2 46528 ####[facility],[address] [place] [address] B/C RATIO 16 ratio Normal 0 - 30 [facility] Comment on above: Performed By: #### 2 92601 ####[facility],[address] [place] [address] Bilirubin [Mass/Vol] 0.6 mg/dL Normal 0.2 - 1.0 [facility] Comment on above: Performed By: #### 2 26729 ####[facility],[address] [place] [address] Calcium [Mass/Vol] 9.9 mg/dL Normal 8.5 - 10.1 [facility] Comment on above: Performed By: #### 2 37379 ####[facility],[address] [place] [address] Chloride [Moles/Vol] 101 mmol/L Normal 98 - 107 [facility] Comment on above: Performed By: #### 2 14081 ####[facility],[address] [place] [address] 225[address] CMP with eGFR Normal [facility] Comment on above: Result Comment: COMP REHENSIVE METABOLIC PANEL Performed By: #### 2 38105 ####[facility],[address] [place] [address] 860[address] CO2 [Moles/Vol] 32.9 mmol/L High 21.0 - 32.0 [facility] Comment on above: Performed By: #### 2 03415 ####[facility],[address] [place] [address] Creatinine [Mass/Vol] 0.81 mg/dL Normal 0.55 - 1.02 [facility] Comment on above: Performed By: #### 2 34204 ####[facility],[address] [place] [address] GFR/1.73 sq M.predicted among non-blacks MDRD (S/P/Bld) [Vol rate/Area] mL/min/{1.73_m2} Normal 60 - 999 [facility] Comment on above: Performed By: #### 2 24882 ####[facility],[address] [place] [address] Result Comment: ACCO RDING TO THE NATIONAL KIDNEY DISEASE EDUCATION PROGRAM(NKDE), A NORMAL eGFR IS A VALUE GREATER THAN OR EQUAL TO 60 ML/MIN/1.73 SQ METERS. CHRONIC KIDNEY DISEASE: <60mL/MIN/1.73 SQ METERS KIDNEY FAILURE: <15mL/MIN/1.73 SQ METERS THIS TEST SHOULD ONLY BE USED FOR PATIENTS 18 YEARS OF AGE AND OLDER. Globulin (S) [Mass/Vol] 4.0 g/dL High 1.5 - 3.8 [facility] Comment on above: Performed By: #### 2 64812 ####[facility],[address] [place], [place] [address] Glucose [Mass/Vol] 97 mg/dL Normal 74 - 106 [facility] Comment on above: Performed By: #### 2 03869 ####[facility],[address] [place] [address] Potassium [Moles/Vol] 4.0 mmol/L Normal 3.5 - 5.1 [facility] Comment on above: Performed By: #### 2 20737 ####[facility],[address] [place], [place] [address] Protein [Mass/Vol] 7.8 g/dL Normal 6.4 - 8.2 [facility] Comment on above: Performed By: #### 2 14571 ####[facility],[address] [place] [address]272 Sodium [Moles/Vol] 141 mmol/L Normal 136 - 145 [facility] Comment on above: Performed By: #### 2 71248 ####[facility],[address] [place] [address] 20270 Urea nitrogen [Mass/Vol] 13 mg/dL Normal 7 - 18 [facility] Comment on above: Performed By: #### 2 86753 ####[facility],[address] [place] [address] 11590 ED MED ADMINISTRATION DETAIL on 10-20-2024 ED MED ADMINISTRATION DETAIL Wire Twister Medication Administration Record [address] [address] [id number] 10/20/2024 Patient: CADENCE WRIGHT Sex: Female : 1950 Age: 74y MEASUREMENTS: Wt: 56.7 kg, Ht/Rashad: 63.0 in, BMI: 22.14 ALLERGIES: No known drug allergies Medication Ordered Medication Administration Date/Time Normal [facility] ED NURSES CLINICAL NOTEon ED NURSES CLINICAL NOTE Nurse Narrative Nurse Clinical Narrative [address] [address] [id number] 10/20/2024 Patient: CADENCE WRIGHT Sex: Female : [...] R.N. ADDITIONAL SURGERIES: Hysterectomy -- 10:20 10/20/24 DEINSE Naik R.N. tear duct -- 10:20 10/20/24 [...] Patient verbalized understanding. Written instructions provided in Kuwaiti. The patient was discharged by the physician. The patient was discharged home and accompanied by family. The patient left ambulatory and via private vehicle. Family member driving. -- 14:03 10/20/24 DENISE Naik R.N. Departure time: 13:20 10/20/2024. -- 14:03 10/20/24 DENISE Naik R.N. 13:20 10/20/24. Site #1 removed upon discharge. Catheter intact. Bandaid (more content not included)... Normal [facility] ED ORDER SHEET (CPOE ONLY)on 10-20-2024 ED ORDER SHEET (CPOE ONLY) Order Sheet Order Sheet [address] [place] [address] [id number] 10/20/2024 Patient: CADENCE WRIGHT Sex: Female : [...] (10/20/2024 12:58 EST)] 2 of 2 Normal [facility] ED PHYSICIAN CLINICAL REPORT on 10-20-2024 ED PHYSICIAN CLINICAL REPORT Narrative Physician Clinical Narrative 92 [address] [address] [id number] 10/20/2024 Patient: CADENCE WRIGHT Sex: Female : [...] 1.50 - 7.10 Final EST 10/20/2024 11:30 Crosby # 0.56 x10/UL 0.20 - 1.00 Final [...] 33 U/ (more content not included)... Normal [facility] ED SUPER BILLon 10-20-2024 ED SUPER BILL [address] [address] [id number] 10/20/2024 Patient: CADENCE WRIGHT Sex: Female : 1950 Age: 74y Item Professional Category Description Facility Code Code Quantity Fee Total Nurse/E/M EMERGENCY 983607 1 $0.00 $0.00 DEPARTMENT VISIT MODERATE SEVERITY (31867-08) Grand Total $0.00 Providers Laurie Arnett D.O. Chief Complaint CHEST PAIN. Principal Diagnosis Chest pain characterized as discomfort. ICD-10 Codes 1 of 2 [facility] R07.89: Other chest pain 2 of 2 Normal [facility] ED VISIT SUMMARYon ED VISIT SUMMARY Visit Overview Visit Overview [address] [address] [id number] 10/20/2024 Patient: CADENCE WRIGHT Sex: Female : [...] PAIN CHARACTERIZED DISCOMFORT 3 of 3 Normal [facility] ED VITALS FLOW SHEETon 10-20 ED VITALS FLOW SHEET Vit[place] [address] [id number] 10/20/2024 Patient: CADENCE WRIGHT Sex: Female : [...] 98.5 F 2 1 of 1 Normal [facility] TROPONINon 10-20-2024 HS TROPONIN <4.0 Normal 0.0 - 51.4 [facility] Comment on above: Performed By: #### 2 33635 #### [place] [id number] BMP with eGFRon 02-08-2024 AGE 73 years Normal [facility] Comment on above: Performed By: #### 2 63825 #### [address] [address] Anion gap [Moles/Vol] 10 mmol/L Normal 10 - 20 mmol/L [facility].; [facility]. Comment on above: Performed By: #### 2 35869 #### [facility],[address] [place], [place] [id number] BMP with eGFR Normal [facility] Comment on above: Result Comment: BASI C METABOLIC PANEL Performed By: #### 2 73798 #### [facility],[address] [place] [address] Calcium [Mass/Vol] 10.1 mg/dL Normal 8.5 - 10. 1 mg/dL [facility].; [facility] Comment on above: Performed By: #### 2 40909 #### [place] [address] Chloride [Moles/Vol] 102 mmol/L Normal 98 - 107 mmol/L [facility] Comment on above: Performed By: #### 2 38867 #### [place] [id number] CO2 [Moles/Vol] 33.3 mmol/L Abnormal 21.0 - 32.0 mmol/L [facility].; [facility] Comment on above: Performed By: #### 2 94072 #### [place] [id number] Creatinine [Mass/Vol] 0.79 mg/dL Normal 0.55 - 1.02 mg/dL [facility].; [facility]. Comment on above: Performed By: #### 2 04923 #### [place] [address] GFR/1.73 sq M.predicted among non-blacks MDRD (S/P/Bld) [Vol rate/Area] mL/min/{1.73_m2} Normal 60 - 999 [facility] Comment on above: Performed By: #### 2 25663 #### [address] [address] Result Comment: ACCO RDING TO THE NATIONAL KIDNEY DISEASE EDUCATION PROGRAM(NKDE), A NORMAL eGFR IS A VALUE GREATER THAN OR EQUAL TO 60 ML/MIN/1.73 SQ METERS. CHRONIC KIDNEY DISEASE: <60mL/MIN/1.73 SQ METERS KIDNEY FAILURE: <15mL/MIN/1.73 SQ METERS THIS TEST SHOULD ONLY BE USED FOR PATIENTS 18 YEARS OF AGE AND OLDER. Glucose [Mass/Vol] 109 mg/dL Abnormal 74 - 106 mg/dL [facility].; [facility] Comment on above: Performed By: #### 2 74859 #### [place] [address] Potassium [Moles/Vol] 4.1 mmol/L Normal 3.5 - 5.1 mmol/L [facility].; [facility]. Comment on above: Performed By: #### 2 21579 #### [address] [address] Sodium [Moles/Vol] 141 mmol/L Normal 136 - 145 mmol/L [facility].; [facility]. Comment on above: Performed By: #### 2 70501 #### [address] [address] Urea nitrogen [Mass/Vol] 8 mg/dL Normal 7 - 18 mg/dL [facility].; [facility]. Comment on above: Performed By: #### 2 11394 #### [address] [address] CBC + DIFFon 02-08-2024 Baso # 0.02 x10EE3/UL Normal 0.00 - 0.10 [facility] Comment on above: Performed By: #### 2 19399 ####[place] [id number] Basophils/100 WBC (Bld) 0.3 % Normal 0.0 - 2.0 % [facility].; [facility]. Comment on above: Performed By: #### 2 93014 ####[place] [address] CBC + DIFF Normal [facility] Comment on above: Result Comment: CBC- COMPLETE BLOOD COUNT Performed By: #### 2 42912 ####[place] [address] EO # 0.24 x10EE3/UL Normal 0.00 - 0.50 [facility] Comment on above: Performed By: #### 2 64285 ####[place] [address] Eosinophils/100 WBC (Bld) 3.5 % Normal 0.0 - 7.0 % [facility] Comment on above: Performed By: #### 2 74074 ####[place] [address] Erythrocyte distribution width (RBC) [Ratio] 13.5 % Normal 12.0 - 15.6 % [facility] Comment on above: Performed By: #### 2 10861 ####[place] [address] Hematocrit (Bld) [Volume fraction] 49.8 % Abnormal 34.0 - 46.0 % [facility] Comment on above: Performed By: #### 2 42320 ####[place] [address] Hemoglobin (Bld) [Mass/Vol] 16.0 g/dL Normal 12.0 - 16.0 g/dL [facility] Comment on above: Performed By: #### 2 87372 ####[place] [address] Lymph # 1.34 x10EE3/UL Normal 0.80 - 2.80 [facility] Comment on above: Performed By: #### 2 33699 ####[place] [address] Lymphocytes/100 WBC (Bld) 19.1 % Abnormal 20.0 - 45.0 % [facility]; [facility] Comment on above: Performed By: #### 2 68131 ####[place] [address] MANUAL DIFF N/A Normal [facility].; [facility] Comment on above: Performed By: #### 2 96966 ####[place] [address] MCH (RBC) [Entitic mass] 28 pg Normal 27 - 33 pg [facility]; [facility]. Comment on above: Performed By: #### 2 73200 ####[place] [address] MCHC 32 X10 3 Normal 32 - 36 [facility] Comment on above: Performed By: #### 2 92473 ####[place] [address] MCV (RBC) [Entitic vol] 87 fL Normal 80 - 99 fL [facility]; [facility]. Comment on above: Performed By: #### 2 62344 ####[place] [address] Crosby # 0.53 x10EE3/UL Normal 0.20 - 1.00 [facility] Comment on above: Performed By: #### 2 65059 ####[place] [address] MONOS % 7.6 % Normal 0.0 - 10.0 [facility] Comment on above: Performed By: #### 2 14925 ####[facility],[address] [place] [address] Morphology Praveen (Bld) [Interp] N/A Normal [facility]; [facility] Comment on above: Performed By: #### 2 89169 ####[facility],[address] [place] [address] Neut # 4.85 x10EE3/UL Normal 1.50 - 7.10 [facility] Comment on above: Performed By: #### 2 94949 ####[place] [address] Neutrophils/100 WBC (Bld) 69.4 % Normal 46.0 - 76.0 % [facility]; [facility] Comment on above: Performed By: #### 2 43376 ####[place] [address] PLATELET 319 x10EE3/UL Normal 150 - 450 [facility] Comment on above: Performed By: #### 2 86147 ####[place] [address] Platelet mean volume (Bld) [Entitic vol] 8.4 fL Normal 6.6 - 10.5 fL [facility]; [facility]. Comment on above: Result Comment: AUTO MATED DIFFERENTIAL Performed By: #### 2 05880 ####[facility],[address] [place] [address] RBC 5.74 x 10EE6/UL High 4.10 - 5.30 [facility] Comment on above: Performed By: #### 2 88305 ####[place] [address] WBC 7.0 x 10EE3/UL Normal 4.5 - 10.8 [facility] Comment on above: Performed By: #### 2 17248 ####[place] [id number] CHEST 2 VIEWSon 02-08-2024 CHEST 2 VIEWS [facility] [address] [place], [place] [address] Patient: CADENCE WRIGHT Phone#: : 1950 Age: 73 Gender: F Pt. Type: Out Account: [id number] Location: Ordering: LINDA ARMENTA Exam Date: 02/08/2024/10:06 Family Phys: IVETTE VERONICA Charge Code: 638797 Physician: [place] Order #: [id number] Dose#: PROCEDURE: X-RAY CHEST 2 VIEWS COMPARISON: [facility], XR, CHEST PA/LAT, 12/04/2014, 9:58. INDICATIONS: Moderate [...] Aguero MD on 02/08/2024 at 10:16 Normal [facility] Laboratory - Chemistry and C hemistry - challengeon 02-08-2024 Basic metabolic 2000 panel BMP with eGFR Normal [facility] GFR/1.73 sq M.predicted among blacks MDRD (S/P/Bld) [Vol rate/Area] mL/min/{1.73_m2} Normal 60 - 999 {ML/MINUTE} [facility] GFR/1.73 sq M.predicted MDRD (S/P/Bld) [Vol rate/Area] mL/min/{1.73_m2} Normal 60 - 999 {ML/MINUTE} [facility] [employer] Laboratory - Hematology and Cell countson 02-08-2024 Basophils (Bld) [#/Vol] 0.02 {3/UL} Normal 0.00 - 0.10 {3/UL} [facility] [employer] CBC W Auto Differential panel (Bld) CBC + DIFF Normal [facility] [employer] Eosinophils (Bld) [#/Vol] 0.24 {3/UL} Normal 0.00 - 0.50 {3/UL} [facility] [employer] Lymphocytes (Bld) [#/Vol] 1.34 {3/UL} Normal 0.80 - 2.80 {3/UL} [facility] [employer] MCHC (RBC) [Mass/Vol] 32 {X10_3} Normal 32 - 36 {X10_3} [facility] [employer] Monocytes (Bld) [#/Vol] 0.53 {3/UL} Normal 0.20 - 1.00 {3/UL} [facility] [employer] Monocytes/100 WBC (Bld) 7.6 % Normal 0.0 - 10.0 % [facility] [employer] Neutrophils (Bld) [#/Vol] 4.85 {3/UL} Normal 1.50 - 7.10 {3/UL} [facility] [employer] Platelets (Bld) [#/Vol] 319 {3/UL} Normal 150 - 450 {3/UL} [facility] [employer] RBC (Bld) [#/Vol] 5.74 {6/UL} Abnormal 4.10 - 5.3 0 {6/UL} [facility] [employer] WBC (Bld) [#/Vol] 7.0 {3/UL} Normal 4.5 - 10.8 {3/UL} [facility] [employer] No Panel Informationon 02-07 AGE 73 {years} Normal [facility] [employer] Culture, Blood (WB)on 2021 CUB No growth in 5 days. Normal [facility] Comment on above: Performed By: #### M 200.1000 #### [facility] [address] [place], [place], [id number] Performed By: #### M 100.2200 #### [facility] [address] [place], [address] Urine Cultureon 02-21-2022 [facility] Mixed Gram Positive Organisms [place] Count 1000-10,000 MIX[facility] Mixed contaminants. Submit a new specimen if indicated. Normal [facility] Comment on above: Performed By: #### M 100.2200 #### [facility] [address] [place], [place], [id number] 12 Lead EKGon 02-20-2022 12 Lead EKG [facility] [address] [place] [address] 12 Lead EKG 02/20/22 0823 MR#: [id number] Acct: [id number] Name: CADENCE WRIGHT Rep #: [id number] : 1950 71 From: Elio Shaw MD [...] Abnormal ECG Confirmed by ELIO SHAW MD ([id number]), story editor TONY ROE ([id number]) on 02/22/2022 11:35:22 AM Referred By: KELLY Confirmed By:ELIO SHAW MD [id number] Date Elio Shaw MD CC: ERIC Martin; Dr. Laurie Arnett, DO Signed Normal [facility] BNP,B-Type NATRIURETIC PEPTI Marianne 02-20-2022 Natriuretic peptide B (Bld) [Mass/Vol] 14.4 pg/mL Normal 0-100 [facility] Comment on above: Performed By: #### L 503.6620 #### [facility] [address] [place], [address] CBC W/Diff, Automatedon Absolute Lymph 1.63 X10 3/uL Normal 0.83-4.51 [facility] Comment on above: Performed By: #### M 100.2200 #### [facility] [address] [place], [address] Absolute Neut 9.6 X10 3/uL High 2.0-7.7 [facility] Comment on above: Performed By: #### M 100.2200 #### [facility] [address] [place], [address] Basophils/100 WBC (Bld) 0.5 % Normal 0-1 [facility] Comment on above: Performed By: #### M 100.2200 #### [facility] [address] [place], [address] Eosinophils/100 WBC (Bld) 0.9 % Normal 0-5 [facility] Comment on above: Performed By: #### M 100.2200 #### [facility] [address] [place], [address] Erythrocyte distribution width (RBC) [Ratio] 12.9 % Normal 11.6-14.6 [facility] Comment on above: Performed By: #### M 100.2200 #### [facility] [address] [place], [address] Hematocrit (Bld) [Volume fraction] 47.6 % High 37-47 [facility] Comment on above: Performed By: #### M 100.2200 #### [facility] [address] [place], [address] Hemoglobin (Bld) [Mass/Vol] 16.0 g/dL High 12.0-15.0 [facility] Comment on above: Performed By: #### M 100.2200 #### [facility] [address] [place], [address] IG% 0.900 Normal 0.0-0.9 [facility] Comment on above: Result Comment: IG% - Immature Granulocytes (promyelocytes, myelocytes and metamyelocytes) > 1% indicates that a LEFT SHIFT is Present. Performed By: #### M 100.2200 #### [facility] [address] [place], [address] Lymphocytes/100 WBC (Bld) 12.7 % Low 19-41 [facility] Comment on above: Performed By: #### M 100.2200 #### [facility] [address] [place], [address] MCH (RBC) [Entitic mass] 30.0 pg Normal 27.0-32.0 [facility] Comment on above: Performed By: #### M 100.2200 #### [facility] [address] [place], [address] MCHC (RBC) [Mass/Vol] 33.6 g/dL Normal 32-36 [facility] Comment on above: Performed By: #### M 100.2200 #### [facility] [address] [place], [address] MCV (RBC) [Entitic vol] 89.3 fL Normal 81-99 [facility] Comment on above: Performed By: #### M 100.2199 #### [facility] [address] [place], [address] Monocytes/100 WBC (Bld) 10.6 % High 0-10 [facility] Comment on above: Performed By: #### M 100.2199 #### [facility] [address] [place], [address] Neutrophils/100 WBC (Bld) 74.4 % High 47-70 [facility] Comment on above: Performed By: #### M 100.2199 #### [facility] [address] [place], [address] Nucleated RBC (Bld) [#/Vol] 0 10*3/uL Normal 0-5 [facility] Comment on above: Performed By: #### M 100.2199 #### [facility] [address] [place], [address] Platelet mean volume (Bld) [Entitic vol] 11.0 fL Normal 6.2-12.0 [facility] Comment on above: Performed By: #### M 100.2199 #### [facility] [address] [place], [address] Platelets (Bld) [#/Vol] 269 10*3/uL Normal 150-450 [facility] Comment on above: Performed By: #### M 100.2199 #### [facility] [address] [place], [address] RBC (Bld) [#/Vol] 5.33 10*6/uL Normal 4.2-5.4 [facility] Comment on above: Performed By: #### M 100.2199 #### [facility] [address] [place], [address] RDW SD 42.2 fl Normal 35.1-43.9 [facility] Comment on above: Performed By: #### M 100.2199 #### [facility] [address], [address] WBC (Bld) [#/Vol] 12.8 10*3/uL High 4.4-11.0 [facility] Comment on above: Performed By: #### M 100.2200 #### [facility] [address] [place], [address] COVID 19, KAJAL [facility](RT COLLECT )on 02-20-2022 SARS-CoV-2 (COVID-19) RNA KAJAL+probe Ql (Unsp spec) Negative Normal Not Detect [facility] Comment on above: Result Comment: Norm al Reference Range: Not Detected Method:(RT-PCR) real-time reverse transcriptase PCR [employer] R&V Instrument *The Food and Drug Administration (FDA) has issued an Emergency Use Authorization (EAU) for the R&V SARS-CoV-2 Assay for the rapid detection of [...] exposure. Performed By: #### M 100.2200 #### [facility] [address] [facility] [place], [address] CTA Chest W/WO Contraston CTA Chest W/WO Contrast [facility] [address] [place] [address] CTA Chest W/WO Contrast MR#: [id number] Acct: [id number] Name: CADENCE WRIGHT Rep #: [id number] : 1950 F 71 From: Saurabh abebe MD PCP: ERIC Hooper Status: REG ER Study: CTA Chest W/WO Contrast Date of Exam: 02/20/22 Exam# [id number] Ordering Dr: Laurie Arnett DO STUDY: CTA [...] CC: ERIC Martin; Dr. Laurie Arnett DO Plant Operations Manager: Signed Normal [facility] Chest 1 View (Portable)on Chest 1 View (Portable) [facility] [address] [place] [address] Chest 1 View (Portable) MR#: [id number] Acct: [id number] Name: CADENCE WRIGHT Rep #: [id number] : 1950 F 71 From: Carmel chairez MD PCP: ERIC Hooper Status: REG ER Study: Chest 1 View (Portable) Date of Exam: 02/20/22 Exam# [id number] Ordering Dr: Laurie Arnett DO HISTORY: cough. [...] , CC: ERIC Martin; Dr. Laurie Arnett, Plant Operations Manager: Signed Normal [facility] Comprehensive Metabolic Prof ilon 02-20-2022 Albumin [Mass/Vol] 3.6 g/dL Normal 3.2-5.0 [facility] Comment on above: Performed By: #### M 100.2200 #### [facility] [address] [place], [address] Albumin/Globulin [Mass ratio] 0.9 {ratio} Normal 0.9-2.4 [facility] Comment on above: Performed By: #### M 100.2200 #### [facility] [address] [place], [address] ALK P 68 U/L Normal 45-117 [facility] Comment on above: Performed By: #### M 100.2200 #### [facility] [address] [place], [address] ALT [Catalytic activity/Vol] 24 U/L Normal 13-56 [facility] Comment on above: Performed By: #### M 100.2200 #### [facility] [address] [place], [address] AST [Catalytic activity/Vol] 15 U/L Normal 15-37 [facility] Comment on above: Performed By: #### M 100.2200 #### [facility] [address] [place], [address] Bilirubin [Mass/Vol] 1.00 mg/dL Normal 0.20-1.00 [facility] Comment on above: Result Comment: For patients on eltrombopag therapy, use of Dimension [place] TBIL is not recommended. Performed By: #### M 100.2200 #### [facility] [address] [place], [address] BUN/CRE 15.0 RATIO Normal 10-20 [facility] Comment on above: Performed By: #### M 100.2200 #### [facility] [address] [place], [address] CA,Total 9.5 mg/dL Normal 8.5-10.1 [facility] Comment on above: Performed By: #### M 100.2199 #### [facility] [address] [place], [address] Chloride [Moles/Vol] 101 mmol/L Normal 98-107 [facility] Comment on above: Performed By: #### M 100.2199 #### [facility] [address] [place], [address] CO2 [Moles/Vol] 29.0 mmol/L Normal 21.0-32.0 [facility] Comment on above: Performed By: #### M 100.2199 #### [facility] [address] [place], [address] Creatinine [Mass/Vol] 0.86 mg/dL Normal 0.55-1.02 [facility] Comment on above: Result Comment: The validity of the calculated GFR GFRAA in patients over 70 years has not been determined. Clinical correlation is essential. Performed By: #### M 100.2199 #### [facility] [address] [place], [address] ECRCL 50.35 ml/min Normal [facility] Comment on above: Performed By: #### M 100.2199 #### [facility] [address] [place], [address] EST GFR - AA 83 mL/min Normal >60 [facility] Comment on above: Result Comment: Afri can [place] GFR Calc Performed By: #### M 100.2199 #### [facility] [address] [place], [address] GAP 6 Normal 5-15 [facility] Comment on above: Performed By: #### M 100.2199 #### [facility] [address] [place], [address] GFR/1.73 sq M.predicted among non-blacks MDRD (S/P/Bld) [Vol rate/Area] 69 mL/min/{1.73_m2} Normal >60 [facility] Comment on above: Result Comment: Non- GFR Calc Performed By: #### M 100.2200 #### [facility] [address] [place], [address] Globulin (S) [Mass/Vol] 3.9 g/dL Normal 2.2-4.2 [facility] Comment on above: Performed By: #### M 100.2200 #### [facility] [address] [place], [address] Glucose [Mass/Vol] 95 mg/dL Normal 74-106 [facility] Comment on above: Performed By: #### M 100.2200 #### [facility] [address] [place], [address] Potassium [Moles/Vol] 3.9 mmol/L Normal 3.5-5.1 [facility] Comment on above: Performed By: #### M 100.2200 #### [facility] [address] [place], [address] Sodium [Moles/Vol] 136 mmol/L Normal 136-145 [facility] Comment on above: Performed By: #### M 100.2200 #### [facility] [address] [place], [address] T PROT 7.5 g/dL Normal 6.4-8.2 [facility] Comment on above: Performed By: #### M 100.2200 #### [facility] [address] [place], [address] Urea nitrogen [Mass/Vol] 13 mg/dL Normal 7-18 [facility] Comment on above: Performed By: #### M 100.2200 #### [facility] [address] [place], [address] D-Dimer Quantitative (DVT/PE )on 02-20-2022 D-DIMER QUANT 1.02 FEU/ug/m Invalid Interpretation Code 0.27-0.49 [facility] Comment on above: Result Comment: D-Di sander ELEVATED (>0.49): Additional studies and clinical assessments are indicated to conclude diagnosis of: Deep Vein Thrombosis (DVT) or Pulmonary Embolism (PE) CRITICAL VALUE VERIFIED. CALLED TO GOLDEN 02/20/22 1003 Sarah Frias. RESULTS READ BACK BY SAME . Performed By: #### M 100.2200 #### [facility] [address] [place], [place], [address] Emergency Department Summary on 02-20-2022 Emergency Department Summary [facility] Medical Records Department [address] [place] [address] Emergency Department Summary 02/20/22 MR#: [id number] Acct: [id number] Name: CADENCE WRIGHT Rep #: [id number] : 1950 71 From: Laurie Arnett DO [...] COPD she has no significant medical history. [facility] Medical History COPD (chronic obstructive pulmonary disease) [...] greater than (more content not included)... Normal [facility] Lactic Acidon 02-20-2022 Lactate [Moles/Vol] 0.7 mmol/L Normal 0.4-1.9 [facility] Comment on above: Order Comment: Y Performed By: #### M 100.2200 #### [facility] [address] [place], [address] Partial Thromboplast Timeon 02-20-2022 aPTT Coag (Bld) [Time] 32.5 s Normal 24.1-36.2 [facility] Comment on above: Performed By: #### L 300.8000, L300.4310, L300.3900 #### [facility] [address] [place], [address] Prothrombin Time w/INRon INR Coag (PPP) [Relative time] 1.1 {INR} Normal [facility] Comment on above: Performed By: #### L 300.8000, L300.4310, L300.3900 #### [facility] [address] [place], [address] PT Coag (PPP) [Time] 13.1 s Normal 11.7-14.9 [facility] Comment on above: Performed By: #### L 300.8000, L300.4310, L300.3900 #### [facility] [address] [place], [address] Urinalysis, Completeon 02-20 BACTERIA 0 SEEN Normal None Seen [facility] Comment on above: Order Comment: COLLE CTOR TO SPECIFY Performed By: #### L [id number] #### [facility] [address] [place], [address] EPI,SQUAMOUS 0 SEEN Normal 5-10 [facility] Comment on above: Order Comment: COLLE CTOR TO SPECIFY Performed By: #### L [id number] #### [facility] [address] [place], [address] Mucus Ql (Urine sed) 0 SEEN Normal [facility] Comment on above: Order Comment: COLLE CTOR TO SPECIFY Performed By: #### L [id number] #### [facility] [address] [place], [address] RBC 0 SEEN Normal 0-5 [facility] Comment on above: Order Comment: COLLE CTOR TO SPECIFY Performed By: #### L [id number] #### [facility] [address] [place], [address] WBC 0 SEEN Normal 0-5 [facility] Comment on above: Order Comment: COLLE CTOR TO SPECIFY Performed By: #### L [id number] #### [facility] [address] [place], [address] Emergency Department Summary on 10-03-2021 Emergency Department Summary [facility] Medical Records Department [address] [place] [address] Emergency Department Summary 10/03/21 MR#: [id number] Acct: [id number] Name: CADENCE WRIGHT Rep #: [id number] : 1950 71 From: Jamel Mclaughlin DO [...] ribs and therefore comes in for evaluation. [facility] Medical History COPD (chronic obstructive pulmonary disease) [...] that she has an evaluation by her online media buyer on Sunday and will wait to hear the online media buyer opinion prior to getting the CT scan [...] lateral midportio (more content not included)... Normal [facility] Ribs Uni Min 3V w/PA Cheston 10-03-2021 Ribs Uni Min 3V w/PA Chest [facility] [address] [place] [address] Ribs Uni Min 3V w/PA Chest MR#: [id number] Acct: [id number] Name: CADENCE WRIGHT Rep #: [id number] : 1950 F 71 From: Saurabh abebe MD PCP: ERIC Hooper Status: PRE ER Study: Ribs Uni Min 3V w/PA Chest Date of Exam: 10/03 Exam# [id number] Ordering Dr: Jamel Mclaughlin DO STUDY: X-RAY [...] , CC: ERIC Martin; Jamel Mclaughlin DO Plant Operations Manager: Signed Normal [facility] - Hematology and Cell countson 09-20-2020 Basophils (Bld) [#/Vol] 0.087 10*3/uL Normal 0 - 200 {cells/uL} [employer] Basophils/100 WBC (Bld) 1.3 % Normal [employer] Eosinophils (Bld) [#/Vol] 0.228 10*3/uL Normal 15 - 500 {cells/uL} [employer] Eosinophils/100 WBC (Bld) 3.4 % Normal [employer] Erythrocyte distribution width (RBC) [Ratio] 13.3 % Normal 11.0 - 15.0 % [employer] Hematocrit (Bld) [Volume fraction] 46.5 % Abnormal 35.0 - 45.0 % [employer] Hemoglobin (Bld) [Mass/Vol] 15.3 g/dL Normal 11.7 - 15.5 g/dL [employer] Lymphocytes (Bld) [#/Vol] 1.554 10*3/uL Normal 850 - 3900 {cells/uL} [employer] Lymphocytes/100 WBC (Bld) 23.2 % Normal [employer] MCH (RBC) [Entitic mass] 29.4 pg Normal 27.0 - 33.0 pg [facility].; [place] [employer] [facility], [facility]. MCHC (RBC) [Mass/Vol] 32.9 g/dL Normal 32.0 - 36.0 g/dL [facility].; [place] [employer], [employer] MCV (RBC) [Entitic vol] 89.3 fL Normal 80.0 - 100.0 fL [facility].; [place] [employer] [facility], [facility]. Monocytes (Bld) [#/Vol] 0.657 10*3/uL Normal 200 - 950 {cells/uL} [facility].; [place] [employer], [employer] Monocytes/100 WBC (Bld) 9.8 % Normal [facility].; [place] [employer], [employer]. Neutrophils (Bld) [#/Vol] 4.174 10*3/uL Normal 1500 - 7800 {cells/uL} [facility].; [place] [employer], [employer]. Neutrophils/100 WBC (Bld) 62.3 % Normal [facility].; [place] [employer], [employer]. Platelet mean volume (Bld) [Entitic vol] 11.8 fL Normal 7.5 - 12.5 fL [facility].; [place] [employer], [facility]. Platelets (Bld) [#/Vol] 236 10*3/uL Normal 140 - 400 [facility].; [place] [employer], [employer] RBC (Bld) [#/Vol] 5.21 10*6/uL Abnormal 3.80 - 5.1 0 {Million/uL} [facility].; [place] [employer], [employer] WBC (Bld) [#/Vol] 6.7 10*3/uL Normal 3.8 - 10.8 [place] [employer]; [employer], [employer] Laboratory - Chemistry and C hemistry - challengeon 08-19-2020 Bilirubin Ql (U) Negative Normal [facility] [employer] Ketones Ql (U) Negative Normal [facility] [employer] [employer].; [place] [employer], [employer] pH (U) 6.0 [pH] Normal [facility].; [facility] Specific gravity (U) [Rel density] 1.020 Normal [facility]; [facility] Urobilinogen Qn (U) 0.2 mg/dL Normal [facility].; [facility] Laboratory - Hematology and Cell countson 08-19-2020 Basophils (Bld) [#/Vol] 0.029 10*3/uL Normal 0 - 200 {cells/uL} [facility].; [facility] Basophils/100 WBC (Bld) 0.8 % Normal [facility]; [facility] Eosinophils (Bld) [#/Vol] 0.04 10*3/uL Normal 15 - 500 {cells/uL} [facility].; [facility], [facility] Eosinophils/100 WBC (Bld) 1.1 % Normal [facility]; [facility] Erythrocyte distribution width (RBC) [Ratio] 12.9 % Normal 11.0 - 15.0 % [facility]; [facility] Hematocrit (Bld) [Volume fraction] 45.7 % Abnormal 35.0 - 45.0 % [facility]; [facility] Hemoglobin (Bld) [Mass/Vol] 15.9 g/dL Abnormal 11.7 - 15.5 g/dL [facility]; [facility] Hemoglobin Ql (U) Trace, intact Abnormal [facility]; [facility] Lymphocytes (Bld) [#/Vol] 1.069 10*3/uL Normal 850 - 3900 {cells/uL} [facility].; [facility] Lymphocytes/100 WBC (Bld) 29.7 % Normal [facility]; [facility] MCH (RBC) [Entitic mass] 29.7 pg Normal 27.0 - 33.0 pg [facility]; [facility], [facility] MCHC (RBC) [Mass/Vol] 34.8 g/dL Normal 32.0 - 36.0 g/dL [facility].; [employer], [employer] MCV (RBC) [Entitic vol] 85.3 fL Normal 80.0 - 100.0 fL [place] [employer]; [employer], [employer]. Monocytes (Bld) [#/Vol] 0.58 10*3/uL Normal 200 - 950 {cells/uL} [place] [employer], [employer] Monocytes/100 WBC (Bld) 16.1 % Normal [place] [employer] [facility].; [employer], [employer]. Neutrophils (Bld) [#/Vol] 1.883 10*3/uL Normal 1500 - 7800 {cells/uL} [place] [employer]; [employer], [employer]. Neutrophils/100 WBC (Bld) 52.3 % Normal [place] [employer] [facility].; [employer] Platelet mean volume (Bld) [Entitic vol] 12.2 fL Normal 7.5 - 12.5 fL [place] [employer] [facility].; [employer] Platelets (Bld) [#/Vol] 171 10*3/uL Normal 140 - 400 [place] [employer] [facility].; [employer], [employer]. RBC (Bld) [#/Vol] 5.36 10*6/uL Abnormal 3.80 - 5.1 0 {Million/uL} [place] [employer]; [employer] WBC (Bld) [#/Vol] 3.6 10*3/uL Abnormal 3.8 - 10.8 [place] [employer]; [employer], [employer]. Laboratory - Specimen inform ationon 08-19-2020 Appearance (U) clear Normal [facility] [employer]. Color (U) yellow Normal [employer], [employer] Laboratory - Urinalysison Glucose Test strip (U) [Mass/Vol] Negative Normal [employer]; [employer], [employer] Leukocyte esterase Test strip Ql (U) Negative Normal [employer].; [employer], [employer]. Nitrite Ql (U) Negative Normal [facility] [employer].; [facility], [facility] Protein Ql (U) Negative Normal [facility]; [facility] No Panel Informationon 08-19 CULTURE, URINE, ROUTINE SEE NOTE Normal [facility]; [facility] SED RATE BY MODIFIED WESTERGREN 6 mm/h Normal [facility]; [facility], [facility] Laboratory - Chemistry and C hemistry - challengeon 02-17-2014 Albumin [Mass/Vol] 4.6 g/dL Normal 3.6 - 5.1 g/dL [facility]; [facility], [facility] Albumin/Globulin [Mass ratio] 2.0 {ratio} Normal 1.0 - 2.5 [facility]; [facility], [facility]. ALP [Catalytic activity/Vol] 72 U/L Normal 33 - 130 U/L [facility].; [facility], [facility]. ALT [Catalytic activity/Vol] 16 U/L Normal 6 - 29 U/L [facility].; [facility], [facility]. AST [Catalytic activity/Vol] 18 U/L Normal 10 - 35 U/L [facility].; [facility], [facility]. Bilirubin [Mass/Vol] 0.8 mg/dL Normal 0.2 - 1.2 mg/dL [facility].; [facility], [facility]. Calcium [Mass/Vol] 9.9 mg/dL Normal 8.6 - 10. 4 mg/dL [facility].; [facility], [facility]. Chloride [Moles/Vol] 105 mmol/L Normal 98 - 110 mmol/L [facility].; [facility], [facility]. Cholesterol [Mass/Vol] 234 mg/dL Abnormal 125 - 200 mg/dL [facility].; [facility], [facility]. Cholesterol in HDL [Mass/Vol] 66 mg/dL Normal [facility].; [facility], [facility]. Cholesterol in LDL [Mass/Vol] 145 mg/dL Abnormal [facility].; [facility], [facility]. Cholesterol non HDL [Mass/Vol] 168 mg/dL Abnormal [facility].; [facility], [facility]. Cholesterol.total/C holesterol in HDL [Mass ratio] 3.5 {ratio} Normal [facility].; [facility], [facility] CO2 [Moles/Vol] 28 mmol/L Normal 19 - 30 mmol/L [facility].; [facility], [facility]. Creatinine [Mass/Vol] 0.83 mg/dL Normal 0.50 - 0.99 mg/dL [facility].; [facility], [facility]. GFR/1.73 sq M.predicted among blacks MDRD (S/P/Bld) [Vol rate/Area] 88 {ML/MIN/1.73M2} Normal [facility].; [facility], [facility]. GFR/1.73 sq M.predicted MDRD (S/P/Bld) [Vol rate/Area] 76 {ML/MIN/1.73M2} Normal [facility], [facility].; [facility], [facility]. Globulin (S) [Mass/Vol] 2.3 g/dL Normal 1.9 - 3.7 g/dL [facility].; [facility], [facility]. Glucose [Mass/Vol] 94 mg/dL Normal 65 - 99 mg/dL [facility].; [facility], [facility]. Potassium [Moles/Vol] 3.9 mmol/L Normal 3.5 - 5.3 mmol/L [facility].; [facility], [facility]. Protein [Mass/Vol] 6.9 g/dL Normal 6.1 - 8.1 g/dL [facility], [facility].; [facility], [facility]. Sodium [Moles/Vol] 142 mmol/L Normal 135 - 146 mmol/L [facility], [facility].; [facility], [facility]. Triglyceride [Mass/Vol] 115 mg/dL Normal [facility], [facility].; [facility], [facility]. TSH Qn 3.39 m[IU]/L Normal 0.40 - 4.50 {mIU/L} [facility], [facility].; [facility], [facility]. Urea nitrogen [Mass/Vol] 15 mg/dL Normal 7 - 25 mg/dL [facility], [facility].; [facility], [facility]. Urea nitrogen/Creatinine [Mass ratio] 18.1 mg/mg Normal 6 - 22 [facility].; [place] [employer] [facility] - Hematology and Cell countson 02-17-2014 Basophils (Bld) [#/Vol] 40 {Cells}/uL Normal 0 - 200 {Cells}/uL [facility].; [place] [employer] [facility], [facility] Basophils/100 WBC (Bld) 1 % Normal [facility].; [facility] Eosinophils (Bld) [#/Vol] 150 {Cells}/uL Normal 15 - 500 {Cells}/uL [facility].; [place] [employer] [facility] Eosinophils/100 WBC (Bld) 3 % Normal [facility]; [place] [employer], [facility] Erythrocyte distribution width (RBC) [Ratio] 13.5 % Normal 11.0 - 15.0 % [facility].; [place] [employer], [facility] Hematocrit (Bld) [Volume fraction] 46.7 % Abnormal 35.0 - 45.0 % [facility].; [place] [employer], [facility] Hemoglobin (Bld) [Mass/Vol] 15.2 g/dL Normal 11.7 - 15.5 g/dL [facility].; [place] [employer] [facility], [facility]. Lymphocytes (Bld) [#/Vol] 1780 {Cells}/uL Normal 850 - 3900 {Cells}/uL [facility].; [place] [employer], [facility] Lymphocytes/100 WBC (Bld) 34 % Normal [facility].; [place] [employer], [facility]. MCH (RBC) [Entitic mass] 29.4 pg Normal 27.0 - 33.0 PG [place] [employer] [facility].; [place] [employer], [facility]. MCHC (RBC) [Mass/Vol] 32.5 g/dL Normal 32.0 - 36.0 g/dL [place] [employer] [facility].; [place] [employer], [facility]. MCV (RBC) [Entitic vol] 90.6 fL Normal 80.0 - 100.0 fL [place] [employer] [facility].; [place] [employer], [facility] Monocytes (Bld) [#/Vol] 450 {Cells}/uL Normal 200 - 950 {Cells}/uL [facility].; [facility]. Monocytes/100 WBC (Bld) 8 % Normal [facility].; [facility]. Neutrophils (Bld) [#/Vol] 2870 {Cells}/uL Normal 1500 - 7800 {Cells}/uL [facility], [facility].; [facility], [facility]. Neutrophils/100 WBC (Bld) 54 % Normal [facility].; [facility]. Platelets (Bld) [#/Vol] 193 10*3/uL Normal 140 - 400 10*3/uL [facility].; [facility], [facility]. RBC (Bld) [#/Vol] 5.16 10*6/uL Abnormal 3.80 - 5.1 0 10*6/uL [facility].; [facility], [facility]. WBC (Bld) [#/Vol] 5.3 10*3/uL Normal 3.8 - 10.8 10*3/uL [facility].; [facility]. Laboratory - Chemistry and C hemistry - challengeon 03-19-2013 Albumin [Mass/Vol] 4.5 g/dL Normal 3.20 - 4. 80 g/dL [facility].; [place] [employer] [facility], [facility]. Albumin [Mass/Vol] 1.7 g/dL Abnormal 0.90 - 1.60 [facility].; [place] [employer] [facility], [facility]. ALP [Catalytic activity/Vol] 59 U/L Normal 38 - 126 U/L [facility].; [place] [employer] [facility], [facility]. ALT [Catalytic activity/Vol] 36 U/L Normal 10 - 44 U/L [facility].; [facility], [facility]. AST [Catalytic activity/Vol] 42 U/L Abnormal 8 - 34 U/L [facility].; [place] [employer] [facility], [facility]. Bilirubin [Mass/Vol] 0.9 mg/dL Normal 0.20 - 1.20 mg/dL [facility], [facility].; [facility], [facility]. Calcium [Mass/Vol] 9.6 mg/dL Normal 8.40 - 10 .60 mg/dL [facility].; [facility], [employer] Chloride [Moles/Vol] 101 mmol/L Normal 98 - 110 mmol/L [facility].; [facility], [facility]. Cholesterol [Mass/Vol] 215 mg/dL Abnormal 0 - 200 mg/dL [facility].; [facility], [facility]. Cholesterol in HDL [Mass or moles/Vol] 71 mg/dL Abnormal 40 - 60 mg/dL [facility].; [facility], [facility] Cholesterol in LDL [Mass/Vol] 133 mg/dL Abnormal 0 - 100 mg/dL [facility].; [facility], [facility]. Cholesterol.total/C holesterol in HDL [Mass ratio] 3.0 {ratio} Normal 0.0 - 5.0 [facility]; [facility], [facility] CO2 [Moles/Vol] 31.0 mmol/L Normal 22.0 - 32.0 meq/L [facility].; [facility], [facility] Comprehensive metabolic 2000 panel COMPREHENSIVE METABOLIC PANEL Normal [facility]; [facility], [facility] Creatinine [Mass/Vol] 0.8 mg/dL Normal 0.50 - 1.20 mg/dL [facility].; [facility], [facility]. Globulin (S) [Mass/Vol] 2.7 g/dL Normal 1.50 - 3.80 g/dL [facility].; [facility], [facility]. Glucose [Mass/Vol] 68 mg/dL Normal 60 - 100 mg/dL [facility].; [facility], [facility]. Lipid 1996 panel LIPID PROFILE Normal [facility].; [facility], [facility] Potassium [Moles/Vol] 4.4 mmol/L Normal 3.50 - 5.0 mmol/L [facility].; [facility], [facility] Protein [Mass/Vol] 7.2 g/dL Normal 6.0 - 8.5 0 g/dL [facility], [facility].; [facility], [facility]. Sodium [Moles/Vol] 140 mmol/L Normal 136 - 145 mmol/L [facility].; [facility], [facility]. Triglyceride [Mass/Vol] 53 mg/dL Normal 0 - 150 mg/dL [facility].; [facility], [facility] Urea nitrogen [Mass/Vol] 16 mg/dL Normal 8 - 22 mg/dL [facility].; [facility] Urea nitrogen/Creatinine [Mass ratio] 20 {ratio} Normal 0 - 30 {ratio} [facility].; [place] [employer] [facility], [facility] Vital Signs Date Time Vital Sign Value Performing Clinician Facility 02-22-2024 12:51-0400 Body height 156.21 cm Isamar Ni [facility].; [facility] 02-22-2024 12:51-0400 Body mass index (BMI) [Ratio] 22.68 kg/m2 [facility].; [facility], [facility]. 02-22-2024 12:51-0400 Body surface area Derived from formula 1.54 m2 [facility].; [facility]. 02-22-2024 12:51-0400 [facility] [place] [employer] [facility], [facility] 02-22-2024 12:51-0400 Diastolic blood pressure 73 mm[Hg] Isamar Ni [facility].; [place] [employer] [facility], [facility]. Comment on above: Patient Position: Sitting; Cuff Location : Left Arm; Cuff Size: Standard 02-22-2024 12:51-0400 Heart rate 98 /min Isamar Ni [facility]; [facility], [facility]. Comment on above: Pattern: Regular 02-22-2024 12:51-0400 Inhaled oxygen concentration 21 % [facility] [place] [employer] [facility], [facility]. Comment on above: Room air 02-22-2024 12:51-0400 SaO2% (BldA) [Mass fraction] 93 % [facility].; [place] [employer] [facility], [employer] 02-22-2024 12:51-0400 Systolic blood pressure 112 mm[Hg] Ismaar Ni [facility].; [place] [employer] [facility] [employer]. Comment on above: Patient Position: Sitting; Cuff Location : Left Arm; Cuff Size: Standard 02-08-2024 08:44-0400 Body height 156.21 cm Linda Oanh Armenta PA-C Work Phone: [employer]; [employer] 02-08-2024 08:44-0400 Body mass index (BMI) [Ratio] 22.68 kg/m2 Linda J Armenta PA-C Work Phone: [employer]; [employer] 02-08-2024 08:44-0400 Body surface area Derived from formula 1.54 m2 Linda J Armenta PA-C Work Phone: [employer]; [employer] 02-08-2024 08:44-0400 Body weight 55.34 kg Linda J Armenta PA-C Work Phone: [employer]; [employer] 02-08-2024 08:44-0400 Diastolic blood pressure 66 mm[Hg] Lidna J Armenta PA-C Work Phone: [employer]; [employer] Comment on above: Patient Position: Sitting; Cuff Location : Left Arm; Cuff Size: Standard 02-08-2024 08:44-0400 Heart rate 101 /min Linda J Armenta PA-C Work Phone: [employer]; [employer] Comment on above: Pattern: Regular 02-08-2024 08:44-0400 Heart rate 98 /min Linda J Armenta PA-C Work Phone: [employer]; [employer] Comment on above: Pattern: Regular 02-08-2024 08:44-0400 Inhaled oxygen concentration 20 % Linda J Armenta PA-C Work Phone: [employer]; [employer] Comment on above: Room air 02-08-2024 08:44-0400 Inhaled oxygen concentration 21 % Linda Tylerer PA-C Work Phone: [employer] Comment on above: Room air 02-08-2024 08:44-0400 SaO2% (BldA) [Mass fraction] 90 % Linda Armenta PA-C Work Phone: [employer] 02-08-2024 08:44-0400 Systolic blood pressure 119 mm[Hg] Linda Armenta PA-C Work Phone: [employer] Comment on above: Patient Position: Sitting; Cuff Location : Left Arm; Cuff Size: Standard 02-22-2022 10:43-0400 Body height 156.21 cm Ivette Martin PA-C Work Phone: [employer] 02-22-2022 10:43-0400 Body mass index (BMI) [Ratio] 25.28 kg/m2 Ivette Martin PA-C Work Phone: [employer] 02-22-2022 10:43-0400 Body surface area Derived from formula 1.61 m2 Ivette Martin PA-C Work Phone: [employer] [employer] 02-22-2022 10:43-0400 Body temperature 99.7 [degF] Ivette Martin PA-C Work Phone: [employer] Comment on above: Method: Tympanic 02-22-2022 10:43-0400 Body weight 61.69 kg Ivette Martin PA-C Work Phone: [employer] [employer] 02-22-2022 10:43-0400 Diastolic blood pressure 78 mm[Hg] Ivette Martin PA-C Work Phone: [employer]. Comment on above: Patient Position: Sitting; Cuff Location : Left Arm; Cuff Size: Standard 02-22-2022 10:43-0400 Heart rate 105 /min Ivette Martin PA-C Work Phone: [facility]; [facility] [employer]. Comment on above: Pattern: Regular 02-22-2022 10:43-0400 Inhaled oxygen concentration 28 % Ivette Martin PA-C Work Phone: [facility].; [facility]. Comment on above: 2L O2 02-22-2022 10:43-0400 Oxygen flow rate 2 L/min Ivette Martin PA-C Work Phone: [facility]; [facility] [employer] [facility] 02-22-2022 10:43-0400 SaO2% (BldA) [Mass fraction] 94 % Ivette Martin PA-C Work Phone: [facility]; [facility] [employer] [facility] 02-22-2022 10:43-0400 Systolic blood pressure 139 mm[Hg] Ivette Martin PA-C Work Phone: [facility] [employer]; [facility] [employer] [facility]. Comment on above: Patient Position: Sitting; Cuff Location : Left Arm; Cuff Size: Standard 02-14-2022 10:33-0400 Body height 156.21 cm Yary Talbert LPN [facility].; [facility] 02-14-2022 10:33-0400 Body mass index (BMI) [Ratio] 26.21 kg/m2 Yary Talbert LPN [facility].; [facility] 02-14-2022 10:33-0400 Body surface area Derived from formula 1.64 m2 Yary Talbert LPN [facility].; [facility]. 02-14-2022 10:33-0400 Body temperature 98.7 [degF] Yary Talbert LPN [facility]; [facility] [employer] Comment on above: Method: Tympanic 02-14-2022 10:33-0400 Body weight 63.96 kg Yary Talbert LPN [facility], [facility].; [facility]. 02-14-2022 10:33-0400 Diastolic blood pressure 68 mm[Hg] Yary Talbert LPN [facility].; [place] [employer] Comment on above: Patient Position: Sitting; Cuff Location : Left Arm; Cuff Size: Standard 02-14-2022 10:33-0400 Heart rate 94 /min Yary Talbert LPN [facility], [facility].; [place] [employer] [facility], [employer] Comment on above: Pattern: Regular 02-14-2022 10:33-0400 Inhaled oxygen concentration 20 % Yary Talbert LPN [facility].; [place] [employer] [facility], [facility]. Comment on above: Room air 02-14-2022 10:33-0400 Inhaled oxygen concentration 21 % Yary Talbert LPN [facility], [facility].; [place] [employer] [facility], [employer]. Comment on above: Room air 02-14-2022 10:33-0400 SaO2% (BldA) [Mass fraction] 93 % Yary Talbert LPN [facility].; [facility], [facility]. 02-14-2022 10:33-0400 Systolic blood pressure 124 mm[Hg] Yary Talbert LPN [facility].; [employer] [facility], [employer]. Comment on above: Patient Position: Sitting; Cuff Location : Left Arm; Cuff Size: Standard 10-19-2021 09:06-0500 Body height 156.21 cm Char Barnett LPN [facility], [facility].; [place] [employer] [facility]. 10-19-2021 09:06-0500 Body mass index (BMI) [Ratio] 25.28 kg/m2 Char Barnett [facility], [facility].; [place] [employer] [facility], [facility]. 10-19-2021 09:06-0500 Body surface area Derived from formula 1.61 m2 Char Barnett LPN [facility], [facility].; [employer] 10-19-2021 09:06-0500 Body temperature 98.4 [degF] Char Barnett LPN [facility].; [facility], [facility]. Comment on above: Method: Tympanic 10-19-2021 09:06-0500 Body weight 61.69 kg [facility].; [facility], [facility] 10-19-2021 09:06-0500 Diastolic blood pressure 82 mm[Hg] Char Barnett [facility], [facility].; [place] [employer] [facility], [employer] Comment on above: Patient Position: Sitting; Cuff Location : Left Arm; Cuff Size: Standard 10-19-2021 09:06-0500 Heart rate 80 /min Char Barnett LP[facility], [facility].; [place] [employer] [facility], Inc[employer] Comment on above: Pattern: Regular 10-19-2021 09:06-0500 Inhaled oxygen concentration 20 % Char Barnett [facility].; [place] [employer] [facility], [employer] Comment on above: Room air 10-19-2021 09:06-0500 Inhaled oxygen concentration 21 % Char Barnett [facility].; [place] [employer] [facility], [employer]. Comment on above: Room air 10-19-2021 09:06-0500 SaO2% (BldA) [Mass fraction] 93 % Char Barnett [facility].; [place] [employer] [facility], [facility]. 10-19-2021 09:06-0500 Systolic blood pressure 122 mm[Hg] Char Barnett LPN [facility], [facility].; [place] [employer] [facility], [employer] Comment on above: Patient Position: Sitting; Cuff Location : Left Arm; Cuff Size: Standard 09-29-2021 09:07-0500 Body height 156.21 cm Hailey uBchanan LPN [facility].; [facility]. 09-29-2021 09:07-0500 Body mass index (BMI) [Ratio] 25.28 kg/m2 Haileyerin Buchanan [facility], [facility].; [facility], [facility]. 09-29-2021 09:07-0500 Body surface area Derived from formula 1.61 m2 Hailey Buchanan LPN [facility], [facility].; [facility], [facility]. 09-29-2021 09:07-0500 Body weight 61.69 kg Hailey Buchanan LPN [facility], [facility].; [place] [employer] [facility], [employer] 09-29-2021 09:07-0500 Diastolic blood pressure 73 mm[Hg] Hailey Buchanan LPN [facility], [facility].; [place] [employer] Comment on above: Patient Position: Sitting; Cuff Location : Left Arm; Cuff Size: Standard 09-29-2021 09:07-0500 Heart rate 69 /min Hailey Buchanan LPN [facility], [facility].; [place] [employer] [facility], Inc[employer] Comment on above: Pattern: Regular 09-29-2021 09:07-0500 Systolic blood pressure 124 mm[Hg] Hailey Buchanan LP[facility], [facility].; [place] [employer] Comment on above: Patient Position: Sitting; Cuff Location : Left Arm; Cuff Size: Standard 08-19-2020 13:36-0400 Body height 156.21 cm Yary Talbert LPN [facility], [facility].; [facility], [employer] 08-19-2020 13:36-0400 Body mass index (BMI) [Ratio] 25.47 kg/m2 Yary Talbert LPN [facility], [facility].; [place] [employer] 08-19-2020 13:36-0400 Body surface area Derived from formula 1.62 m2 Yary Talbert LPN [facility], [facility].; [employer] 08-19-2020 13:36-0400 Body temperature 100 [degF] Yary Talbert LPN [facility], [facility].; [employer] Comment on above: Method: Tympanic 08-19-2020 13:36-0400 Body weight 62.14 kg Yary Talbert LPN [facility], [facility].; [employer] 08-19-2020 13:36-0400 Diastolic blood pressure 85 mm[Hg] Yary Talbert LPN [facility], [facility].; [employer] Comment on above: Patient Position: Sitting; Cuff Location : Left Arm; Cuff Size: Standard 08-19-2020 13:36-0400 Heart rate 57 /min Yary Talbert LPN [facility], [facility].; [employer], [employer] Comment on above: Pattern: Regular 08-19-2020 13:36-0400 Systolic blood pressure 128 mm[Hg] Yary Talbert LPN [place] [employer]; [employer] Comment on above: Patient Position: Sitting; Cuff Location : Left Arm; Cuff Size: Standard 01-03-2019 06:57-0500 Body height 156.21 cm Ivette Martin PA-C Work Phone: [employer]; [employer] 01-03-2019 06:57-0500 Body mass index (BMI) [Ratio] 24.72 kg/m2 Ivette Martin PA-C Work Phone: [employer]; [employer] 01-03-2019 06:57-0500 Body surface area Derived from formula 1.6 m2 Ivette Martin PA-C Work Phone: [employer]; [employer] 01-03-2019 06:57-0500 Body temperature 97.4 [degF] Ivette Martin PA-C Work Phone: [employer]; [employer] Comment on above: Method: Tympanic 01-03-2019 06:57-0500 Body weight 60.33 kg Ivette Martin PA-C Work Phone: [employer]; [employer] 01-03-2019 06:57-0500 Diastolic blood pressure 66 mm[Hg] Ivette Martin PA-C Work Phone: [employer]; [employer] Comment on above: Patient Position: Sitting; Cuff Location : Left Arm; Cuff Size: Standard 01-03-2019 06:57-0500 Heart rate 76 /min Ivette Martin PA-C Work Phone: [employer]; [employer] Comment on above: Pattern: Regular 01-03-2019 06:57-0500 Inhaled oxygen concentration 20 % Ivette Martin PA-C Work Phone: [employer] Comment on above: Room air 01-03-2019 06:57-0500 Inhaled oxygen concentration 21 % Ivette Martin PA-C Work Phone: [facility] [employer] [facility].; [employer] Comment on above: Room air 01-03-2019 06:57-0500 SaO2% (BldA) [Mass fraction] 94 % Ivette Martin PA-C Work Phone: [place] [employer]; [employer] 01-03-2019 06:57-0500 Systolic blood pressure 121 mm[Hg] Ivette Martin PA-C Work Phone: [place] [employer]; [employer] Comment on above: Patient Position: Sitting; Cuff Location : Left Arm; Cuff Size: Standard 12-24-2018 08:14-0500 Body height 156.21 cm Ariella Saundersuckey ADMINISTRATIVE SECRETARY [facility], [employer] 12-24-2018 08:14-0500 Body mass index (BMI) [Ratio] 24.91 kg/m2 Jazmyn Olivia [facility], [employer].; [employer] 12-24-2018 08:14-0500 Body surface area Derived from formula 1.6 m2 Jazmyn Olivia ADMINISTRATIVE SECRETARY [place] [employer] [facility], Inc.; [employer] 12-24-2018 08:14-0500 Body weight 60.78 kg Jazmyn Kvng ADMINISTRATIVE SECRETARY [place] [employer] [facility], [employer].; [employer] 12-24-2018 08:14-0500 Diastolic blood pressure 65 mm[Hg] JazmynDomi Calderon [facility] [employer] [facility], [employer] Comment on above: Patient Position: Sitting; Cuff Location : Left Arm; Cuff Size: Large 12-24-2018 08:14-0500 Heart rate 101 /min Ariella Calderon ADMINISTRATIVE SECRETARY [place] [employer] [facility], [employer] Comment on above: Pattern: Regular 12-24-2018 08:14-0500 Systolic blood pressure 128 mm[Hg] Ariella Calderon CLEMENT [facility], Inc.; [employer] Comment on above: Patient Position: Sitting; Cuff Location : Left Arm; Cuff Size: Large 05-28-2015 16:00-0400 Body height 156.21 cm Ada Ra Campos LPN [facility], Inc.; [employer] 05-28-2015 16:00-0400 Body mass index (BMI) [Ratio] 30.11 kg/m2 Ada Campos ADMINISTRATIVE SECRETARY [facility], Inc.; [employer] 05-28-2015 [id number]:000400 Body surface area Derived from formula 1.74 m2 Ada Campos LPN [facility], Inc.; [employer], [employer] 05-28-2015 [id number]:000400 Body temperature 99.1 [degF] Ada Campos [facility], Inc.; [employer], [employer] Comment on above: Method: Tympanic 05-28-2015 16:000400 Body weight 73.48 kg Ada Campos LPN [place] [employer] [facility], Inc.; [employer], [employer] 05-28-2015 16:00-0400 Diastolic blood pressure 76 mm[Hg] Ada Campos [facility], Inc.; [employer] Comment on above: Patient Position: Sitting; Cuff Location : Left Arm; Cuff Size: Standard 05-28-2015 16:00-0400 Heart rate 89 /min Ada Campos LPN [facility], Inc.; [employer] Comment on above: Pattern: Regular 05-28-2015 16:00-0400 Inhaled oxygen concentration 20 % Ada Campos LPN [facility], Inc.; [employer] Comment on above: Room air 05-28-2015 16:00-0400 Inhaled oxygen concentration 21 % Ada Campos LPN [place] [employer] [facility], Inc.; [employer] Comment on above: Room air 05-28-2015 16:00-0400 SaO2% (BldA) [Mass fraction] 94 % Ada Campos [facility], [employer].; [employer] 05-28-2015 16:00-0400 Systolic blood pressure 122 mm[Hg] Ada Ra Campos [facility].; [employer] Comment on above: Patient Position: Sitting; Cuff Location : Left Arm; Cuff Size: Standard 12-04-2014 09:06-0500 Body height 156.21 cm Ivette Martin PA-C Work Phone: [employer] 12-04-2014 09:06-0500 Body mass index (BMI) [Ratio] 30.86 kg/m2 Ivette Martin PA-C Work Phone: [employer] [employer] 12-04-2014 09:06-0500 Body surface area Derived from formula 1.76 m2 Ivette Martin PA-C Work Phone: [employer] 12-04-2014 09:06-0500 Body weight 75.3 kg Ivette Martin PA-C Work Phone: [employer] 12-04-2014 09:06-0500 Diastolic blood pressure 67 mm[Hg] Ivette Martin PA-C Work Phone: [employer] Comment on above: Patient Position: Sitting; Cuff Location : Right Arm; Cuff Size: Large 12-04-2014 09:06-0500 Heart rate 80 /min Ivette Martin PA-C Work Phone: [employer] Comment on above: Pattern: Regular 12-04-2014 09:06-0500 Inhaled oxygen concentration 20 % Ivette Martin PA-C Work Phone: [employer] Comment on above: Room air 12-04-2014 09:06-0500 Inhaled oxygen concentration 21 % Ivette Martin PA-C Work Phone: [employer] Comment on above: Room air 12-04-2014 09:06-0500 SaO2% (BldA) [Mass fraction] 95 % Ivette Martin PA-C Work Phone: [employer] 12-04-2014 09:06-0500 Systolic blood pressure 127 mm[Hg] Ivette Martin PA-C Work Phone: [employer] Comment on above: Patient Position: Sitting; Cuff Location : Right Arm; Cuff Size: Large 11-10-2014 10:57-0500 Body temperature 100.6 [degF] Neilee L Vess ADMINISTRATIVE SECRETARY [employer] [employer] Comment on above: Method: Oral 11-10-2014 10:57-0500 Body weight 75.3 kg Neilee L Vess ADMINISTRATIVE SECRETARY [employer] [employer] 11-10-2014 10:57-0500 Diastolic blood pressure 67 mm[Hg] Neilee L Vess ADMINISTRATIVE SECRETARY [employer] Comment on above: Patient Position: Sitting; Cuff Location : Left Arm; Cuff Size: Standard 11-10-2014 10:57-0500 Heart rate 87 /min Neilee L Vess ADMINISTRATIVE SECRETARY [employer] Comment on above: Pattern: Regular 11-10-2014 10:57-0500 Inhaled oxygen concentration 20 % Neilee L Vess ADMINISTRATIVE SECRETARY [employer] Comment on above: Room air 11-10-2014 10:57-0500 Inhaled oxygen concentration 21 % Neilee L Vess ADMINISTRATIVE SECRETARY [employer] Comment on above: Room air 11-10-2014 10:57-0500 SaO2% (BldA) [Mass fraction] 93 % Neilee L Vess ADMINISTRATIVE SECRETARY [employer] [employer] 11-10-2014 10:57-0500 Systolic blood pressure 107 mm[Hg] Neilee L Vess ADMINISTRATIVE SECRETARY [employer]; [employer] Comment on above: Patient Position: Sitting; Cuff Location : Left Arm; Cuff Size: Standard 02-26-2014 11:17-0400 Body height 156.21 cm Yesica Harman RN [place] [employer]; [employer] 02-26-2014 11:17-0400 Body mass index (BMI) [Ratio] 30.86 kg/m2 Yesica Harman RN [employer] [employer] 02-26-2014 11:17-0400 Body surface area Derived from formula 1.76 m2 Yesica Harman RN [employer] 02-26-2014 11:17-0400 Body temperature 98 [degF] Yesica Harman RN [employer] Comment on above: Method: Tympanic 02-26-2014 11:170400 Body weight 75.3 kg Yesica Hamran RN [employer] [employer] 02-26-2014 11:17-0400 Diastolic blood pressure 75 mm[Hg] Yesica Harman RN [employer] Comment on above: Patient Position: Sitting; Cuff Location : Left Arm; Cuff Size: Standard 02-26-2014 11:17-0400 Heart rate 75 /min Yesica Harman RN [employer] Comment on above: Pattern: Regular 02-26-2014 11:17-0400 Inhaled oxygen concentration 20 % Yesica Harman RN [employer] Comment on above: Room air 02-26-2014 11:17-0400 Inhaled oxygen concentration 21 % Yesica Harman RN [employer] Comment on above: Room air 02-26-2014 11:17-0400 SaO2% (BldA) [Mass fraction] 94 % Yesica Harman RN [employer] 02-26-2014 11:17-0400 Systolic blood pressure 155 mm[Hg] Yesica Harman RN [place] [employer]; [employer] Comment on above: Patient Position: Sitting; Cuff Location : Left Arm; Cuff Size: Standard 02-17-2014 08:51-0400 Body height 156.21 cm Ivtete Martin PA-C Work Phone: [employer] 02-17-2014 08:51-0400 Body mass index (BMI) [Ratio] 31.23 kg/m2 Ivette Martin PA-C Work Phone: [employer] 02-17-2014 08:51-0400 Body surface area Derived from formula 1.76 m2 Ivette Martin PA-C Work Phone: [employer] 02-17-2014 08:51-0400 Body weight 76.2 kg Ivette Martin PA-C Work Phone: [employer] 02-17-2014 08:51-0400 Diastolic blood pressure 83 mm[Hg] Ivette Martin PA-C Work Phone: [employer] Comment on above: Patient Position: Sitting; Cuff Location : Left Arm; Cuff Size: Large 02-17-2014 08:51-0400 Heart rate 85 /min Ivette Martin PA-C Work Phone: [employer] Comment on above: Pattern: Regular 02-17-2014 08:51-0400 Systolic blood pressure 146 mm[Hg] Ivette Martin PA-C Work Phone: [employer] Comment on above: Patient Position: Sitting; Cuff Location : Left Arm; Cuff Size: Large 01-09-2014 08:13-0500 Body height 156.21 cm Leela Wright LPN [employer] [employer]; [employer] 01-09-2014 08:13-0500 Body mass index (BMI) [Ratio] 30.87 kg/m2 Leela Wesheila VAUGHAN [facility], [facility].; [employer], [employer] 01-09-2014 08:13-0500 Body surface area Derived from formula 1.76 m2 Leela Wesheila VAUGHAN [facility], Inc.; [employer] 01-09-2014 08:13-0500 Body temperature 99.1 [degF] [facility]ila [facility], [facility].; [employer], [employer] Comment on above: Method: Tympanic 01-09-2014 08:13-0500 Body weight 75.33 kg Leela Wesheila VAUGHAN [facility], [facility].; [employer], [employer] 01-09-2014 08:13-0500 Diastolic blood pressure 87 mm[Hg] Leelajoleen Wright LPN [facility], Inc.; [employer] Comment on above: Patient Position: Sitting; Cuff Location : Left Arm; Cuff Size: Standard 01-09-2014 08:13-0500 Heart rate 95 /min Leela Wesheila VAUGHAN [facility], Inc.; [employer], [employer] Comment on above: Pattern: Regular 01-09-2014 08:13-0500 Inhaled oxygen concentration 20 % Leela Wright LPN [place] [employer] [facility], Inc.; [employer] Comment on above: Room air 01-09-2014 08:13-0500 Inhaled oxygen concentration 21 % Leela Wright LPN [place] [employer] [facility], Inc.; [employer] Comment on above: Room air 01-09-2014 08:13-0500 SaO2% (BldA) [Mass fraction] 94 % Leela Sumansheila ADMINISTRATIVE SECRETARY [place] [employer] [facility], Inc.; [employer] 01-09-2014 08:13-0500 Systolic blood pressure 151 mm[Hg] Leela Kyle VAUGHAN [place] [employer] [facility], [employer] Comment on above: Patient Position: Sitting; Cuff Location : Left Arm; Cuff Size: Standard 12-19-2012 11:07-0500 Body height 156.21 cm Emma Ndiaye Freedom VAUGHAN [facility] [employer] [facility], [employer] 12-19-2012 11:07-0500 Body mass index (BMI) [Ratio] 29.56 kg/m2 Emma Ndiaye Freedom VAUGHAN [place] [employer] [facility], Inc.; [employer] 12-19-2012 11:07-0500 Body surface area Derived from formula 1.72 m2 Emma Loja ADMINISTRATIVE SECRETARY [facility] [employer] [facility], [employer] 12-19-2012 11:07-0500 Body weight 72.12 kg Emma Fajardolabach [facility], [employer] 12-19-2012 11:07-0500 Diastolic blood pressure 84 mm[Hg] Emma Ndiaye Freedom VAUGHAN [facility] [employer].; [employer] Comment on above: Patient Position: Sitting; Cuff Location : Left Arm; Cuff Size: Standard 12-19-2012 11:07-0500 Heart rate 87 /min Emma Ndiaye Freedom VAUGHAN [facility] [employer].; [employer] Comment on above: Pattern: Regular 12-19-2012 11:07-0500 Systolic blood pressure 140 mm[Hg] Emmabekah Loja ADMINISTRATIVE SECRETARY [employer] Comment on above: Patient Position: Sitting; Cuff Location : Left Arm; Cuff Size: Standard Encounters Encounter Date Encounter Type Care Provider Facility Start: 07-16-2025 Review Linda Armenta PA-C Work Phone: [employer] Start: 06-10-2025 End: 06-10-2025 Orders Linda Armenta PA-C Work Phone: [employer] Start: 10-22-2024 End: 10-22-2024 Telephone follow-up Ivette Martin PA-C Work Phone: [employer] Start: 10-20-2024 End: 10-20-2024 Emergency department patient visit IVETTE MARTIN [facility] Start: 02-22-2024 End: 02-22-2024 Office outpatient visit 15 minutes Ivette Martin PA-C Work Phone: [employer] Start: 02-08-2024 End: 02-08-2024 ambulatory IVETTE PAC MARTIN [facility] Start: 02-08-2024 End: 02-08-2024 Office outpatient visit 15 minutes Ivette Martin PA-C Work Phone: [employer] Start: 02-08-2024 Review Ivette Martin P A-C Work Phone: [facility] Start: 02-22-2022 End: 02-22-2022 Office outpatient visit 15 minutes Ivette Martin PA-C Work Phone: [facility] Start: 02-14-2022 End: 02-14-2022 Office outpatient visit 15 minutes Ivette Martin PA-C Work Phone: [facility] Start: 10-19-2021 End: 10-19-2021 Office outpatient visit 15 minutes Ivette Martin PA-C Work Phone: [facility] Start: 10-18-2021 End: 10-18-2021 Orders Ivette Martin PA-C Work Phone: [facility] Start: 09-29-2021 End: 09-29-2021 Office outpatient visit 15 minutes Ivette Martin PA-C Work Phone: [facility] Start: 09-20-2020 End: 09-20-2020 Orders Ivette Martin PA-C Work Phone: [facility] Start: 08-23-2020 End: 08-23-2020 Orders Ivette Martin PA-C Work Phone: [facility] Start: 08-21-2020 End: 08-21-2020 Orders Ivette Martin PA-C Work Phone: [facility] Start: 08-19-2020 End: 08-19-2020 Office outpatient visit 15 minutes Ivette Martin PA-C Work Phone: [employer] Start: 01-03-2019 End: 01-03-2019 Office outpatient visit 15 minutes Ivette Martin PA-C Work Phone: [employer] Start: 12-30-2018 End: 12-30-2018 Orders Ivette Martin PA-C Work Phone: [employer] Start: 12-24-2018 End: 12-24-2018 Office outpatient visit 15 minutes Ivette Martin PA-C Work Phone: [facility] Start: 07-30-2015 End: 07-30-2015 Nursing evaluation of patient and report Ivette Martin PA-C Work Phone: [facility] Start: 05-28-2015 End: 05-28-2015 Office outpatient visit 15 minutes Ivette Martin PA-C Work Phone: [facility] Start: 12-04-2014 End: 12-04-2014 Office outpatient visit 15 minutes Ivette Martin PA-C Work Phone: [facility] Start: 11-10-2014 End: 11-10-2014 Patient encounter procedure Ivette Martin PA-C Work Phone: [facility] Start: 02-26-2014 End: 02-26-2014 Patient encounter procedure Ivette Martin PA-C Work Phone: [facility] Start: 02-17-2014 End: 02-17-2014 Patient encounter procedure Ivette Martin PA-C Work Phone: [facility] Start: 02-12-2014 End: 02-12-2014 Orders Ivette Martin PA-C Work Phone: [facility] Start: 02-11-2014 End: 02-11-2014 Historical Summary Ivette Martin PA-C Work Phone: [facility] Start: 01-09-2014 End: 01-09-2014 Patient encounter procedure Ivette Veronica REYES-C Work Phone: [facility] Start: 12-19-2012 End: 12-19-2012 Patient encounter procedure Ivette Martin PA-C Work Phone: [facility] Procedures Date Procedure Procedure Detail Performing Clinician [...] Patient encounter procedure Medical; PHYSICAL - awv [facility] Start: 24-Jul-2025 09:10-04:00 LAURIE Armenta Request [employer] Start: 07-16-2025 Assay of thyroid stimulating hormone tsh TSH (THYROID STIMULATING HORMONE) (58397) Start: 16-Jul-2025 14:18-04:00 Request [employer] Start: 07-16-2025 Lipid panel LIPID PANEL (8 60) Start: 16-Jul-2025 14:18-04:00 Request [employer] Start: 07-16-2025 Comprehensive metabo lic panel CMP w/ GFR* ([id number]) Start: 16-Jul-2025 14:18-04:00 Request [employer] Start: 07-16-2025 Blood count complete auto&auto difrntl wbc CBC, PLATELETS & AUT DIFF (F) ([id number]) Start: 16-Jul-2025 14:18-04:00 Request [facility]; [employer] Start: 07-16-2025 Assay of thyroid stimulating hormone tsh TSH (THYROID STIMULATING HORMONE) (80030) Start: 16-Jul-2025 08:43-04:00 Request [employer] Start: 07-16-2025 Blood count complete auto&auto difrntl wbc CBC, PLATELETS & AUT DIFF (F) (74325) Start: 16-Jul-2025 08:43-04:00 Request [facility]; [employer] Start: 07-16-2025 Comprehensive metabo lic panel CMP w/ GFR* ([id number]) Start: 16-Jul-2025 08:43-04:00 Request [employer] Start: 07-16-2025 Lipid panel LIPID PANEL (8 0061) Start: 16-Jul-2025 08:43-04:00 Request [employer] Start: 07-16-2025 Nursing evaluation o f patient and report Medical; Nurse visit - fasting BW mjp [facility] Start: 16-Jul-2025 08:40-04:00 PHLEBOTOMY, PHLEBOTOMY Appointment Request [facility] Start: 06-10-2025 Screening digital br east tomosynthesis bi Mammogram 3D (tomosynthesis), bilateral ([id number]) Start: 10-Jun-2025 Intent [facility]; [employer] Start: 02-22-2024 Patient encounter procedure Medical; EXTENDED RTN - 2 wk deb [facility] Start: 22-Feb-2024 13:10-04:00 LAURIE Armenta Appointment Request [facility] Start: 02-08-2024 Basic metabolic pane l calcium total BMP w/ GFR (F) (54813) Start: 08-Feb-2024 Request [facility]; [employer] Start: 02-08-2024 Blood count complete auto&auto difrntl wbc CBC, PLATELETS & AUT DIFF (F) (50120) Start: 08-Feb-2024 Request [facility]; [employer] Start: 02-08-2024 Chest x-ray CHEST X-RAY, P A AND LATERAL ([id number]) Start: 08-Feb-2024 Intent [facility]; [employer] Immunizations Immunization Date Immunization Notes Care Provider Tha bocanegra 07-30-2015 pneumococcal polysaccharide vaccine, 23 valent Ivette Martin PA-C Work Phone: [facility]; [employer] Comment on above: Site: Deltoid (Right )VIS Given: * Pneumococcal Polysaccharide (PPSV23) (03/12/15) Payers Date Payer Category Payer Unknown [id number] [id number] 1950 Unknown [id number] 1950 Unknown [id number] Unknown 94 Unknown Social History Date Type Detail Facility Spouse Spouse Kristina Ndiaye [employer] Tobacco Use: Tobacco Use: ; Never smoker. [employer] Female Kristina Ndiaye [employer] Work Phone: Never smoked tobacco [employer] Work Phone: Clinical Note 10-20-2024 Note Date & Type Note Facility 10-20-2024 Note Discharge Instructio ns Discharge Summary [address] [address] [id number] 10/20/2024 Patient: CADENCE WRIGHT Sex: Female : 1950 Age: 74y Thank you for visiting [facility]. You have been evaluated today by Laurie Arnett D.O. for the following condition(s): Principal Diagnosis Chest pain characterized as discomfort. INSTRUCTIONS Follow-up: Follow up with your healthcare provider. Understanding of the discharge instructions verbalized by patient and family. You have been given the following additional information: Noncardiac Chest Pain Patient Signature Facility Resolution Specialist Date/Time 1 of 4 Discharge Instructions General Instructions with ExitWriter [address] [address] [id number] 10/20/2024 Patient: CADENCE WRIGHT Sex: Female : 1950 Age: 74y Thank you for visiting [facility]. You have been evaluated today by Laurie [...] redness in one leg 4 of 4 [facility] Summary Purpose Family History No Family [...] section and content) DATE CREATED AUTHOR 03/24/2022 [facility] DATE CREATED AUTHOR AUTHOR'S ORGANIZ ATION 10/21/2024 [facility] DATE CREATED AUTHOR AUTHOR'S ORGANIZ ATION 07/19/2025 [...] BE BASED ON THE PRIMARY CLINICAL RECORDS. [facility] [employer] [facility]. provides no warranty or guarantee of the accuracy or completeness of information in this document.
[2025-07-25] MEDS: 0.9% Normal Saline (1000mL) 1,000 ML 125 ML IV (16:38)
[2025-07-25] MEDS: 0.9% Saline Lock 10 ML Syringe IV (16:39)
[2025-07-25] MEDS: Budesonide Respules 0.5 MG/2 ML AMPUL.NEB. INHALATION (19:38)
[2025-07-26] MEDS: 0.9% Normal Saline (1000mL) 1,000 ML 125 ML IV (00:47)
[2025-07-26 03:00] VITALS: BP 110/60; PULSE 94; RESP 18; TEMP 36.7; O2SAT 98
[2025-07-26 07:37] LABS: Hematocrit 39.3 % (37-47); Hemoglobin 12.6 g/dL (12.0-15.0); Immature Granulocytes Count 0.010 X10^3/uL (0.0-0.0); Mean Corp Hgb Conc 32.1 g/dL (32-36); Mean Corpuscular Volume 91.4 fL (81-99); Mean Platelet Vol. 11.1 fl (6.2-12.0); NRBC Flagged by Analyzer 0 % (0-5); Platelet Count 220 K/mm3 (150-450); RBC Distribution Width CV 13.2 % (11.6-14.6); RBC Distribution Width SD 44.7 fl (35.1-43.9); Red Blood Count 4.30 M/mm3 (4.2-5.4); White Blood Count 5.0 K/mm3 (4.4-11.0)
[2025-07-26 08:05] LABS: Anion Gap 7 (5-15); BUN 9 mg/dL (4-19); BUN/Creat Ratio 15.6 RATIO (10-20); Calcium,Total 8.3 mg/dL (7.6-11.0); Carbon Dioxide 26.6 mmol/L (21.0-32.0); Chloride 108 mmol/L (98-108); Estimated Creatinine Clearance 44.40 ml/min (50-250); Glucose 92 mg/dL (70-99); Potassium 3.9 mmol/L (3.3-5.1)
[2025-07-26 08:57] VITALS: BP 105/46; PULSE 72; RESP 16; TEMP 36.6; O2SAT 99
[2025-07-26] MEDS: levoFLOXacin IV 500 MG/100 ML BAG 100 MG IV (09:09)
--- NOTE | 2025-07-26 13:13 | PN_ITS ---
Subjective Subjective Patient seen and examined with her nurse by her bedside. Her daughter and son-in-law were by her bedside. She had no active complaints. She felt her breathing was improving. She denied any cough or chest pain, palpitations, dizziness, nausea or vomiting or any other symptoms. Review of systems otherwise negative. She remains on 3 L of oxygen. Objective Data Objective Data Vital Signs: Vital Signs Temp Pulse Resp BP Pulse Ox O2 Del Method O2 Flow Rate 97.9 F 72 16 105/46 L 99 Nasal Cannula 3 07/26/25 08:57 07/26/25 08:57 07/26/25 08:57 07/26/25 08:57 07/26/25 08:57 07/26/25 09:00 07/26/25 09:00 Oxygen Flow Rate (L/min) 3 Oxygen Delivery Method Nasal Cannula Weight: 99 lb Body Mass Index (BMI) 17.5 Intake & Output: Intake and Output for Last 24 Hours 07/24/25 07/25/25 07/26/25 23:59 23:59 23:59 Intake Total 1255 / 1455 2450 / 2450 Balance 1255 / 1455 2450 / 2450 Medical Nutrition Assessment Dietitian: Malnutrition Criteria Met Start: 07/26/25 11:40 Freq: Status: Active Protocol: Document 07/26/25 11:40 KIKA (Rec: 07/26/25 11:40 KIKA [id number]) Nutrition Malnutrition Evidence of Yes Malnutrition Exists Malnutrition (severe Acute Illness/Injury ): Evidenced By Suboptimal Energy Intake (Severe),Weight Loss (Severe), Physical Changes (Moderate) Clinical Problem Acute Disease or Injury Related Malnutrition Etiology related to inadequate energy intake Signs/Symptoms as evidenced by po intake meeting <75% of est nutritional needs and 5.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 Has fat/muscle loss throughout body and BMI 17.5 Status Active Problem Recommendation Dietitian Will change diet to liberal Regular d/t signs and Recommendations/ symptoms of malnutrition Changes Will order CIB w/ meals for increased nutrition if consumed Rec consider appetite stimulant to help encourage increased po intake at meals Lab / Micro Data 07/26/25 06:36 07/26/25 06:36 Labs: Laboratory Results - last 24 hr 07/26/25 06:36: WBC 5.0, RBC 4.30, Hgb 12.6, Hct 39.3, MCV 91.4, MCH 29.3, MCHC 32.1, RDW Std Deviation 44.7 H, RDW Coeff of Jenifer 13.2, Plt Count 220, MPV 11.1, Immature Gran % (Auto) 0.200, Neut % (Auto) 45.1 L, Lymph % (Auto) 32.3, [place] % (Auto) 11.6 H, Eos % (Auto) 9.4 H, Baso % (Auto) 1.4 H, Absolute Neuts (auto) 2.3, Absolute Lymphs (auto) 1.61, Nucleated RBC % 0, Sodium 142, Potassium 3.9, Chloride 108, Carbon Dioxide 26.6, Anion Gap 7, BUN 9, Creatinine 0.57 L, Estim Creat Clear Calc 44.40 L, Est GFR (MDRD) Non-Af 96, BUN/Creatinine Ratio 15.6, Glucose 92, Calcium 8.3 Micro: Microbiology 07/25/25 16:00 Mucosa - Nasopharyngeal Respiratory Panel (PCR) - Final 07/25/25 18:30 Urine, Random Legionella Antigen - Final 07/25/25 18:30 Urine, Random Streptococcus pneumoniae Antigen (M - Final 07/25/25 10:03 Mucosa - Nose SARS-CoV-2, Influenza & RSV (PCR) - Final Physical Exam Const alert, oriented x3 and no apparent distress Constitutional Narrative: frail General Appearance: cooperative HEENT normocephalic, head/scalp atraumatic, moist oral mucous membranes and oropharynx normal Eyes EOMs intact bilaterally and conjunctivae normal Neck supple and no JVD Resp Resp Narrative: Mildly diminished breath sounds bibasilarly. Mild wheezing. No crackles. On 3 L of oxygen Cardio regular rate, regular rhythm, S1 normal heart sound, S2 normal heart sound and no murmurs GI soft to palpation, non-tender and non-distended Extremity normal to inspection, full ROM and no clubbing, cyanosis or edema General Extremity: no tenderness to palpation of joints or extremities Skin General Skin Exam: no breakdown Neuro oriented x3 and moves all extremities Sensorium / Orientation: awake and alert Motor Exam: strength 5/5 throughout Psych thought process normal, cooperative and affect normal Appearance: appropriate Assessment & Plan Assessment/Plan (1) Hypoxia: (2) Pneumonia: PLAN: Plan #Acute hypoxia due to COPD exacerbation and pneumonia * feeling better today. She remains on 3L of oxgyen which has been her baseline at home, especially at night, though she says she also wears the oxygen during the day at home. * She went to an outside hospital ED and had a CTA of the chest there which showed bilateral lung base atypical infectious process mild hepatomegaly as well as gallbladder sludge versus partially calcified stones and adnexal cyst versus abnormal lymph nodes recommendation for pelvic ultrasound for further characterization. She also had mild left lobe intrahepatic ductal dilatation. * Urine for strep and legionella negative. * COVID, RSV and influenza screen were negative. Respiratory panel is negative. * On IV levofloxacin. Breathing treatments bronchodilators. IV Solu-Medrol 40 mg Q8. Titrate oxygen to maintain saturation above 90%. #DVT prophylaxis: Lovenox #CODE STATUS: Full code * Disposition: anticipate dc over the next 24-48 hours. Charges/Coding Visit Charges Inpatient E&M: 53852 Subs Hosp L2
[2025-07-26 14:21] VITALS: BP 122/54; PULSE 82; RESP 16; TEMP 36.7; O2SAT 95
[2025-07-26 21:01] VITALS: BP 119/64; PULSE 73; RESP 16; TEMP 36.5; O2SAT 100
[2025-07-27 02:55] VITALS: BP 100/57; PULSE 76; RESP 20; TEMP 36.4; O2SAT 98
--- NOTE | 2025-07-27 05:55 | ECHOD_ITS ---
Reason For Study Reason For Study: Dyspnea/SOB Procedure This was a 2D Doppler, Color Flow transthoracic echocardiogram. Exam performed portable in patient room. Left Ventricle Normal size and thickness. The left ventricular ejection fraction is 65 %. Normal diastololic function. Right Ventricle Normal right ventricle. Atria The left and right atria are normal. Mitral Valve Mild mitral annular calcification. Mild (1+) mitral valve insufficiency. Tricuspid Valve Trivial tricuspid valve insufficiency. Normal pulmonary artery pressure. Aortic Valve Trisinus/trileaflet aortic valve. Aortic sclerosis, no stenosis. Pulmonic Valve The pulmonic valve is not well visualized. Great Vessels Normal sized aortic root. Pericardium/Pleural No pericardial effusion. MMode/2D Measurements & Calculations LVIDd: 3.3 cm IVSd: 0.89 cm LAV(MOD- bp): 32.8 ml LVIDs: 2.0 cm LVPWd: 0.80 cm LAV(MOD- bp) Indexed: 22.9 ml/m2 RVDd: 3.4 cm FS: 39.5 % LAV(MOD- sp2): 30.7 ml LAV(MOD- sp4): 35.3 ml SV(MOD-sp4): 39.7 ml SV(sp4- el): 40.5 ml LVAd ap4: 20.8 cm2 LVLd ap4: 6.2 cm SI(MOD-sp4): 27.7 ml/m2 EDV(MOD-sp4): 58.2 ml EDV(sp4-el): 59.9 ml LVAs ap4: 10.7 cm2 LVLs ap4: 5.0 cm ESV(MOD-sp4): 18.5 ml ESV(sp4-el): 19.4 ml EF(MOD-sp4): 68.2 % EF(sp4-el): 67.6 % LA A4 area: 13.7 cm2 LA dimension(2D): 3.0 cm RA A4 area: 12.2 cm2 TAPSE: 2.1 cm Time Measurements MV dec time: 0.23 sec Doppler Measurements & Calculations MV E max mehul: 86.6 cm/sec Lat Peak E' Mehul: 9.6 cm/sec Med Peak E' Mehul: 10.2 cm/sec MV A max mehul: 67.4 cm/sec E/E' lat: 9.1 E/E' med: 8.5 MV E/A: 1.3 MV V2 max: 101.2 cm/sec MV P1/2t max mehul: 102.4 cm/sec Ao V2 max: 139.9 cm/sec MV max P.1 mmHg MV P1/2t: 85.8 msec Ao max P.8 mmHg MV V2 mean: 53.3 cm/sec Ao V2 mean: 96.4 cm/sec MV mean P.4 mmHg MV dec slope: 349.4 cm/sec2 Ao mean P.2 mmHg MV V2 VTI: 28.1 cm MVA(P1/2t): 2.6 cm2 Ao V2 VTI: 30.4 cm AV (velocity ratio): 0.84 LV V1 max: 108.6 cm/sec MR max mehul: 469.8 cm/sec PA V2 max: 95.6 cm/sec LV V1 max P.7 mmHg MR max P.3 mmHg LV V1 mean P.4 mmHg MR mean mehul: 351.5 cm/sec LV V1 mean: 72.5 cm/sec MR mean P.5 mmHg LV V1 VTI: 25.7 cm MR VTI: 148.1 cm TR max mehul: 243.6 cm/sec TR max P.7 mmHg ECHO/Echo Complete Interpretation Summary The left ventricular ejection fraction is 65 %. Mild (1+) mitral valve insufficiency. Mild mitral valve annular calcification. Aortic sclerosis, no stenosis. Ordering Physician: Yesi Gamble Performed By: Brodwolf, Andres, RCS
[2025-07-27 06:36] LABS: Hematocrit 41.4 % (37-47); Hemoglobin 13.5 g/dL (12.0-15.0); Immature Granulocytes Count 0.020 X10^3/uL (0.0-0.0); Mean Corp Hgb Conc 32.6 g/dL (32-36); Mean Corpuscular Volume 91.0 fL (81-99); Mean Platelet Vol. 11.0 fl (6.2-12.0); NRBC Flagged by Analyzer 0 % (0-5); Platelet Count 223 K/mm3 (150-450); RBC Distribution Width CV 13.1 % (11.6-14.6); RBC Distribution Width SD 43.8 fl (35.1-43.9); Red Blood Count 4.55 M/mm3 (4.2-5.4); White Blood Count 5.5 K/mm3 (4.4-11.0)
[2025-07-27 07:30] LABS: Anion Gap 8 (5-15); BUN 10 mg/dL (4-19); BUN/Creat Ratio 19.3 RATIO (10-20); Calcium,Total 8.9 mg/dL (7.6-11.0); Carbon Dioxide 29.2 mmol/L (21.0-32.0); Chloride 104 mmol/L (98-108); Estimated Creatinine Clearance 44.40 ml/min (50-250); Glucose 105 mg/dL (70-99); Potassium 4.1 mmol/L (3.3-5.1)
[2025-07-27 07:38] VITALS: O2SAT 85; O2SAT 92; O2SAT 95
[2025-07-27 08:00] VITALS: BP 117/61; PULSE 72; RESP 16; TEMP 36.2; O2SAT 100
[2025-07-27 10:00] VITALS: PULSE 108
--- NOTE | 2025-07-27 10:11 | PCM.DC ---
Discharge Instructions DC O2, CPAP, BIPAP needs Home O2 Discharge instructions: No Dressing / Incision Discharge Activity: Return to Normal Activity Dressing / Incision Call your doctor if you observe: Fever of 101 or Higher, Shortness of breath, Dizziness, Fainting spells, Swelling in the ankles, Chest pain and Increased palpitations (irregular heartbeat) Follow Up Care Test Results: Test results from this visit will be discussed in further detail at your follow-up appointment, if applicable. Discharge Plan Admission Admit Date/Time: 07/25/25 13:14 Attending Provider: Chad Roman Primary Care Provider: Nimo Knapp Consulting Providers: Yesi Gamble Discharge Orders/Prescriptions Prescriptions: New levofloxacin 500 mg tablet 500 mg PO .Q48 Qty: 3 0RF Continued ProAir RespiClick 90 mcg/actuation aerosol powdr breath activated 1 inh inhalation 4X/DAY PRN PRN (Reason: shortness of breath) fluticasone furoate-vilanterol [Breo Ellipta] 200-25 mcg/dose blister with device 1 inh inhalation DAILY Referrals / Follow Up: Nimo Knapp PA [Primary Care Provider] - Within 1 Week Disposition Disposition (needs filled in before D/C Order can be placed): Home, Self Care
--- NOTE | 2025-07-27 10:40 | CASEMGMT ---
UZIEL BALLESTEROS Assessment: Face to Face with pt for initial transition planning/care coordination assessment. UZIEL BALLESTEROS introduced self and role at [facility], pt voices understanding and consents to assessment. Pt is A&O x4 and answers all questions appropriately at this time. Pt sitting on eob with oxygen on and dtr Flavia in room. Pt agreeable to assessment with dtr present. Care providers, pharmacy, and demographics verified/updated. Admitting Dx: hypoxia, atypical pna Strata Score: 2 PCP:Geovany Specialists:isabel Spencer [facility] Insurance: [employer] Prescription Benefit: no LNOK: Flavia Reilly, dtr; Melody Loja, dtr Living Arrangements: Pt lives with dtr Melody in a single story home with no steps to enter. Pt reports she is indep with ADL and IADLs other than groceries in which her dtr obtains. Pt denies concerns at home. Transportation: Pt hires drivers for transportation. DME:[employer], oxygen through [facility], [facility] HHC/SNF: Pt denies hx of Pt states no concerns with going home at time of dc. 6 cl=24. Pt states no further concerns/needs. CM to follow. Advised pt to ask CM if any further questions/concerns/needs arise, voices understanding. Pt Goal: Home Plan: Home, awaiting oxygen testing to see if rx needs updated. Eddie TRIPLETT CM
--- NOTE | 2025-07-27 10:42 | PHA.DC.MC.R ---
Pharmacy [facility] Counseling Pharmacy Service has performed discharge medication reconciliation and counseling for this patient. The patient's discharge medication list was reviewed for discrepancies and discrepancies were resolved. The patient was counseled on the following discharge medications and changes in medications for homegoing were reviewed. The Reason for Use, instructions for use, and potential side effects were reviewed for all new medications. The patient's questions regarding all of their medications were answered. 1. Levofloxacin 500 mg Q48 x 3 doses The patient was able to verbally demonstrate an understanding of their discharge medications. Medications at Discharge Home Medications albuterol sulfate 90 mcg/actuation breath activated powder inhaler (ProAir RespiClick) 1 inh inhalation 4X/DAY PRN PRN shortness of breath 07/25/25 fluticasone furoate 200 mcg-vilanterol 25 mcg/dose inhalation powder (Breo Ellipta) 1 inh inhalation DAILY 07/25/25 levofloxacin 500 mg tablet 500 mg PO .Q48 #3 tabs 07/27/25
--- NOTE | 2025-07-27 11:45 | CASEMGMT ---
Spoke with pt nurse, pt does not require an increase in oxygen rx.
--- NOTE | 2025-07-27 12:31 | PCM.DC.SUM ---
Providers Date of Admission: 07/25/25 Primary Care Physician: ERIC Parham Reason For Visit: HYPOXIA ATYPICAL PNEMONIA Diagnosis Discharge Diagnosis (1) Hypoxia: Status: Acute Code(s): R09.02 - Hypoxemia (2) Pneumonia: Status: Acute Code(s): J18.9 - Pneumonia, unspecified organism Medications at Discharge Home Medications albuterol sulfate 90 mcg/actuation breath activated powder inhaler (ProAir RespiClick) 1 inh inhalation 4X/DAY PRN PRN shortness of breath 07/25/25 fluticasone furoate 200 mcg-vilanterol 25 mcg/dose inhalation powder (Breo Ellipta) 1 inh inhalation DAILY 07/25/25 levofloxacin 500 mg tablet 500 mg PO .Q48 #3 tabs 07/27/25 Hospital Course Operations None Procedures 2-D Echocardiogram Summary of Care Provided Minutes Spent on Discharge: 36 Hospital Course: Per HPI: CADENCE ORELLANA, is a 74 F with a PMh as outlined who was admitted via the ED on 07/25/2025 with a complaint of shortness of breath which had been going on for several days prior to admission. SHe has a history of COPD. She admitted to a cough which was non productive. She denied any chest pain, palpitations, nausea, vomiting or any other symptoms. Review of systems was otherwise negative. She recently saw her PCP who ordered a CTA chest. the CTA chest was negative for PE, but showed evidence of atypical pneumonia. She does use oxygen at home but uses it intermittently. Review of systems otherwise negative. Vitals in the ED were blood pressure 109/62, pulse rate of 94, respiratory rate of 28 and she was saturating at 97% on 2 L of oxygen. CBC showed hemoglobin of 16.1 and WBC of 6.9. Platelets were 284. Chemistry showed sodium of 139 with potassium of 4 and bicarb of 29.1. Creatinine was 0.66. proBNP was only 38 and initial troponin was 20 and delta troponin was 17. COVID, flu and RSV screens were negative. She has been admitted to be managed for hypoxia due to probable atypical pneumonia as per CTA read. Hospital Course: 1. Acute on chronic hypoxia secondary to COPD exacerbation with atypical pneumonia?74-year-old female presented to an outside hospital with increasing shortness of breath. She was transferred to this institution for further treatment. She did have a CT scan at the outside hospital that showed possible atypical pneumonia there is also further imaging at that hospital with recommendation of a pelvic ultrasound as well as a right upper quadrant ultrasound for gallbladder stones as well as evaluation for adnexal cyst. I do recommend outpatient follow-up with her PCP for the studies that she is being admitted for shortness of breath. She denies any abdominal pain either in her pelvis or in her right upper quadrant at this time. She was not placed on steroids and has not required any increased oxygen from her baseline. She states that she wears 2 to 3 L at night and then during the day she wears oxygen as needed. She did have an ambulatory pulse ox on the day of discharge that demonstrated that she needed oxygen with ambulation and at night but did not require oxygen at rest. Will continue with Levaquin p.o. but this has to be dosed every 48 hours secondary to her creatinine clearance less than 50. Will provide 3 tablets on discharge which should treat for 6 days after discharge. I discussed with her the plan for discharge and she expressed understanding of the risks and benefits of going home and would like to go home today. Given the improvement in her respiratory status I do not feel that she needs steroids on discharge at this time. She did have an echocardiogram, I believe this was due to her minimally elevated troponins in the setting of no chest pain. As expected it was unremarkable. Physical Exam Narrative General: Alert, Oriented x3, Cooperative, No apparent distress HEENT: Atraumatic, PERRLA, EOMI, Normocephalic Oral: Moist Mucosa Neck: Supple, No JVD Lungs: Diminished, Normal air movement, minimal basilar rhonchi, No wheeze, No rales Cardiovascular: Regular rate, Regular Rhythm, Normal S1, Normal S2, No murmurs Abdomen: Soft, Non Tender, Non-Distended, No Hepato-splenomegaly Extremities: No edema, Capillary Refill Less than 3 Seconds Skin: No rashes, No breakdown Musculoskeletal: No Tenderness to Palpation of Joints or Extremities Neurological: No focal neurological deficits, Motor Exam 5/5 strength throughout, Sensory exam intact to light touch and pain Psych/Mental Status: Normal Affect, Appropriate Weight / BMI Weight Weight: 99 lb Body Mass Index (BMI) 17.5 ABG / Lab / Microbiology Data 07/27/25 06:09 07/27/25 06:09 Laboratory: Laboratory Results - last 24 hr 07/27/25 06:09: WBC 5.5, RBC 4.55, Hgb 13.5, Hct 41.4, MCV 91.0, MCH 29.7, MCHC 32.6, RDW Std Deviation 43.8, RDW Coeff of Jenifer 13.1, Plt Count 223, MPV 11.0, Immature Gran % (Auto) 0.400, Neut % (Auto) 51.8, Lymph % (Auto) 24.3, Reagan % (Auto) 13.1 H, Eos % (Auto) 9.1 H, Baso % (Auto) 1.3 H, Absolute Neuts (auto) 2.8, Absolute Lymphs (auto) 1.33, Nucleated RBC % 0, Sodium 141, Potassium 4.1, Chloride 104, Carbon Dioxide 29.2, Anion Gap 8, BUN 10, Creatinine 0.54 L, Estim Creat Clear Calc 44.40 L, Est GFR (MDRD) Non-Af 97, BUN/Creatinine Ratio 19.3, Glucose 105 H, Calcium 8.9 Microbiology: Microbiology 07/25/25 16:00 Mucosa - Nasopharyngeal Respiratory Panel (PCR) - Final 07/25/25 18:30 Urine, Random Legionella Antigen - Final 07/25/25 18:30 Urine, Random Streptococcus pneumoniae Antigen (M - Final 07/25/25 10:03 Mucosa - Nose SARS-CoV-2, Influenza & RSV (PCR) - Final Radiography Diagnostic Testing: Radiology Impression Echocardiogram 07/27/25 05:55 Interpretation Summary The left ventricular ejection fraction is 65 %. Mild (1+) mitral valve insufficiency. Mild mitral valve annular calcification. Aortic sclerosis, no stenosis. Ordering Physician: Yesi Gamble Performed By: Andres Palumbo RCS D/C Instructions Call your doctor if you observe: Fever of 101 or Higher, Shortness of breath, Dizziness, Fainting spells, Swelling in the ankles, Chest pain and Increased palpitations (irregular heartbeat) DC O2, CPAP, BIPAP Needs Home O2 Discharge instructions: No Meaningful Use Info Meaningful Use Meaningful Use Diagnoses (Choose all that apply): None applicable Discharge Plan Admission Admit Date/Time: 07/25/25 13:14 Attending Provider: Chad Roman Primary Care Provider: Linda Armenta Consulting Providers: Yesi Gamble Discharge Orders/Prescriptions Prescriptions: New levofloxacin 500 mg tablet 500 mg PO .Q48 Qty: 3 0RF Continued ProAir RespiClick 90 mcg/actuation aerosol powdr breath activated 1 inh inhalation 4X/DAY PRN PRN (Reason: shortness of breath) fluticasone furoate-vilanterol [Breo Ellipta] 200-25 mcg/dose blister with device 1 inh inhalation DAILY Referrals / Follow Up: Nimo Knapp PA [Non-Staff] - Within 1 Week Disposition Disposition (needs filled in before D/C Order can be placed): Home, Self Care Charges/Coding Visit Charges Inpatient E&M: 25461 Disch Hosp >30min
== END 2025-07-27 12:01 | disposition home or self-care (01) | DRG 193 ==
LOC: ED 09:56 → MS3 13:22
PROVIDERS: Admitting Provider Student in an Organized Health Care Education/Training Program; Emergency Provider Student in an Organized Health Care Education/Training Program; PCP Physician Assistant; Visit Provider Family Medicine
DX: J18.9 Pneumonia, unspecified organism (principal); E43 Unspecified severe protein-calorie malnutrition; J44.0 Chronic obstructive pulmonary disease with (acute) lower respiratory infection; J44.1 Chronic obstructive pulmonary disease with (acute) exacerbation; Z68.1 Body mass index [BMI] 19.9 or less, adult; R09.02 Hypoxemia; Z79.51 Long term (current) use of inhaled steroids
CPT/HCPCS: 36415; 80048; 83605; 83880; 84484; 85025; 87040; 87449; 87631; 87633; 93005; 93306; 94640; 94668; 97802; 99285; A4216